=== PATIENT | male | born 1950 | race Two or more races ===

== ENCOUNTER 2021-11-28 11:28 | Inpatient (IN) | payer OTHER ==
[~2021-11-28] VITALS: Ht 157.5 cm; Wt 182.6 kg
[2021-11-28 12:43] LABS: Basophils # (auto) 0 10 ^3/uL (0-0.2); Basophils % (auto) 0.2 % (0.0-2.0); Eosinophils # (auto) 0 10 ^3/uL (0-0.8); Hematocrit 42.5 % (41.0-53.0); Lymphocytes % (auto) 14.1 % (10.0-50.0); Mean Corpuscular Hemoglobin 27.4 pg (28.0-32.0); Mean Corpuscular Volume 82.9 fL (80.0-100.0); Monocytes # (auto) 0.4 10 ^3/uL (0-1.3); Monocytes % (auto) 6.2 % (0.0-12.0); Neutrophils # (auto) 5.5 10 ^3/uL (1.6-8.6); Neutrophils % (auto) 79.5 % (37.0-80.0); Red Blood Cells 5.13 10^6/uL (4.5-5.90); Red Cell Distribution Width 14.3 % (11.8-14.3)
[2021-11-28 13:03] LABS: Albumin 2.9 g/dL (3.4-5.0); Calcium 8.1 mg/dL (8.5-10.1); Potassium 3.9 mmol/L (3.5-5.1)
[2021-11-28 13:09] LABS: BUN/Creatinine Ratio 10.1; Bilirubin, Total 0.4 mg/dL (0.2-1.0); Total Protein 7.4 g/dL (6.4-8.2)
[2021-11-28] MEDS ORDERED: cefTRIAXone 1GM/50ML D5W 50 ML IV ONE (16:15)
[2021-11-28] MEDS ORDERED: AZITHROMYCIN 250 MG TAB PO ONE (16:15)
[2021-11-29] MEDS ORDERED: ONDANSETRON HCL 4 MG/2 ML VIAL IV PRN (04:00)
[2021-11-29] MEDS ORDERED: DEXTROSE (50%) 50ML SYRG IV PRN (04:00)
[2021-11-29] MEDS ORDERED: NITROGLYCERIN 0.4 MG SL TAB SL PRN (04:00)
[2021-11-29] MEDS ORDERED: MORPHINE SULFATE INJECTION 2 MG/ML SYRG IV PRN (04:00)
[2021-11-29] MEDS ORDERED: REMDESIVIR PER PHARMACY 0 ML IV SCH (04:00)
[2021-11-29] MEDS ORDERED: TEMAZEPAM 15 MG CAP PO PRN (04:00)
[2021-11-29] MEDS: DexAMETHasone SOD PHOS 10MG/1ML VIAL INJ IV SCH (04:22)
[2021-11-29 05:14] LABS: Lactic Acid w/Reflex 2.1 mmol/L (0.4-2.0)
[2021-11-29 05:18] LABS: Magnesium 2.1 mg/dL (1.6-2.6)
[2021-11-29 05:27] LABS: CRP High Sensitivity 10.4 mg/dL (< 0.3)
[2021-11-29] MEDS: ACCU-CHEK COMFORT CURVE STRIP VI SCH ×4 (06:36→22:16)
[2021-11-29] MEDS: InsuLIN REG 1unit/0.01ml Soln (100units/ml) SC SCH ×4 (06:42→22:18)
[2021-11-29] MEDS: ENOXAPARIN SOD 40 MG/0.4 ML SYRINGE SC SCH ×2 (10:00→22:18)
[2021-11-29] MEDS: CHOLECALCIFEROL (VITD3) 2,000 UNIT CAP/TAB PO SCH (10:00)
[2021-11-29] MEDS: cefTRIAXone 1GM/50ML D5W 50 ML IV SCH (10:30)
[2021-11-29] MEDS: ASCORBIC ACID 1,000 MG TAB PO SCH (10:30)
[2021-11-29] MEDS: AZITHROMYCIN 500MG/ 250ML 250 ML IV SCH (10:30)
[2021-11-29] MEDS: ZINC SULFATE 220mg CAP or TAB PO SCH (10:30)
[2021-11-29 13:00] VITALS: BP 145/87
[2021-11-29] MEDS ORDERED: REMDESIVIR 200 MG in NS 210ml LOADING DOSE ADULT IV ONE (15:00)
[2021-11-29] MEDS: ALBUTEROL SULF HFA 90MCG INH 200DOSE IN PRN ×2 (15:24→23:22)
[2021-11-29 16:58] VITALS: BP 145/84
[2021-11-29] MEDS ORDERED: ATO40T PO ×2 (17:01→17:27)
[2021-11-29] MEDS ORDERED: METF-929 PO (17:01)
[2021-11-29] MEDS ORDERED: ALBU108A5 IN (17:27)
[2021-11-29] MEDS ORDERED: OMEP20TA PO (17:27)
[2021-11-29] MEDS ORDERED: HYDR25TA4 PO (17:27)
[2021-11-29] MEDS ORDERED: DABI150C5 PO (17:27)
[2021-11-29] MEDS ORDERED: CICL160A2 IN (17:27)
[2021-11-29] MEDS ORDERED: BUDE2SUS3 IN (17:27)
[2021-11-29] MEDS ORDERED: MONT4GRA PO (17:27)
[2021-11-29] MEDS ORDERED: AZEL0.1S (17:27)
[2021-11-29] MEDS ORDERED: LOSA-69 PO (17:27)
[2021-11-29 22:00] VITALS: BP 141/67
[2021-11-30 05:00] VITALS: BP 131/76
[2021-11-30] MEDS: InsuLIN REG 1unit/0.01ml Soln (100units/ml) SC SCH ×3 (06:20→17:09)
[2021-11-30] MEDS: ACCU-CHEK COMFORT CURVE STRIP VI SCH ×4 (06:20→22:20)
[2021-11-30 07:26] LABS: Urine Bacteria NONE SEEN /hpf (None Seen); Urine Blood Negative /uL (Negative); Urine WBC 1 /hpf (0 - 3)
[2021-11-30 09:00] VITALS: BP 140/63
[2021-11-30] MEDS: cefTRIAXone 1GM/50ML D5W 50 ML IV SCH (09:21)
[2021-11-30] MEDS: DexAMETHasone SOD PHOS 10MG/1ML VIAL INJ IV SCH (09:21)
[2021-11-30] MEDS: CHOLECALCIFEROL (VITD3) 2,000 UNIT CAP/TAB PO SCH (09:22)
[2021-11-30] MEDS: AZITHROMYCIN 500MG/ 250ML 250 ML IV SCH (09:22)
[2021-11-30] MEDS: ASCORBIC ACID 1,000 MG TAB PO SCH (09:22)
[2021-11-30] MEDS: ZINC SULFATE 220mg CAP or TAB PO SCH (09:22)
[2021-11-30] MEDS: ENOXAPARIN SOD 40 MG/0.4 ML SYRINGE SC SCH ×2 (09:22→22:20)
[2021-11-30] MEDS: ALBUTEROL SULF HFA 90MCG INH 200DOSE IN PRN ×2 (09:39→22:56)
[2021-11-30 10:22] LABS: Basophils # (auto) 0.1 10 ^3/uL (0-0.2); Basophils % (auto) 1.3 % (0.0-2.0); Eosinophils # (auto) 0 10 ^3/uL (0-0.8); Eosinophils % (auto) 0.4 % (0.0-7.0); Hematocrit 40.8 % (41.0-53.0); Hemoglobin 13.5 g/dL (13.5-17.5); Lymphocytes # (auto) 1.6 10 ^3/uL (0.4-5.4); Lymphocytes % (auto) 21.8 % (10.0-50.0); Mean Corpuscular Hemoglobin 27.3 pg (28.0-32.0); Mean Corpuscular Hgb Conc. 33.2 g/dL (32.0-36.0); Mean Corpuscular Volume 82.4 fL (80.0-100.0); Monocytes # (auto) 0.5 10 ^3/uL (0-1.3); Monocytes % (auto) 7.4 % (0.0-12.0); Neutrophils # (auto) 4.9 10 ^3/uL (1.6-8.6); Neutrophils % (auto) 69.1 % (37.0-80.0); Nucleated Red Blood Cells % 0.4 %; Red Blood Cells 4.95 10^6/uL (4.5-5.90); Red Cell Distribution Width 14.1 % (11.8-14.3); White Blood Cell 7.1 10^3/uL (4.4-10.8)
[2021-11-30 10:47] LABS: Albumin 2.6 g/dL (3.4-5.0); Calcium 8.2 mg/dL (8.5-10.1)
[2021-11-30 10:52] LABS: BUN/Creatinine Ratio 14.3; Bilirubin, Total 0.4 mg/dL (0.2-1.0); Total Protein 7.4 g/dL (6.4-8.2)
[2021-11-30] MEDS ORDERED: DEXTROSE (50%) 50ML SYRG IV PRN (11:15)
[2021-11-30 13:00] VITALS: BP 132/70
[2021-11-30] MEDS: REMDESIVIR 100mg 100 MG in SODIUM CHL 0.9% 230 ML IV SCH (14:57)
[2021-11-30 17:00] VITALS: BP 140/73
[2021-11-30] MEDS ORDERED: FUROSEMIDE 20 MG/2 ML VIAL IV ONE (18:15)
[2021-11-30 22:00] VITALS: BP 157/94
[2021-11-30] MEDS ORDERED: InsuLIN REG 1unit/0.01ml Soln (100units/ml) SC SCH (22:00)
[2021-11-30] MEDS: INSULIN LANTUS (GLARGINE) 1 /0.01ml (100units/ml) SC SCH (22:19)
[2021-12-01 05:00] VITALS: BP 140/87
[2021-12-01] MEDS: InsuLIN REG 1unit/0.01ml Soln (100units/ml) SC SCH ×4 (06:30→23:03)
[2021-12-01] MEDS: ACCU-CHEK COMFORT CURVE STRIP VI SCH ×4 (06:30→23:01)
[2021-12-01] MEDS: ALBUTEROL SULF HFA 90MCG INH 200DOSE IN PRN ×2 (07:44→21:46)
[2021-12-01 08:18] LABS: Albumin 2.7 g/dL (3.4-5.0); Calcium 8.2 mg/dL (8.5-10.1); Potassium 4.1 mmol/L (3.5-5.1)
[2021-12-01 08:24] LABS: BUN/Creatinine Ratio 15.2; Bilirubin, Total 0.4 mg/dL (0.2-1.0)
[2021-12-01 09:00] VITALS: BP 132/94
[2021-12-01] MEDS ORDERED: THROAT LOZENGES(CEPASTAT) MT PRN (09:30)
[2021-12-01] MEDS: DexAMETHasone SOD PHOS 10MG/1ML VIAL INJ IV SCH (10:14)
[2021-12-01] MEDS: cefTRIAXone 1GM/50ML D5W 50 ML IV SCH (10:14)
[2021-12-01] MEDS: FUROSEMIDE 20 MG/2 ML VIAL IV SCH (10:14)
[2021-12-01] MEDS: CHOLECALCIFEROL (VITD3) 2,000 UNIT CAP/TAB PO SCH (10:15)
[2021-12-01] MEDS: AZITHROMYCIN 500MG/ 250ML 250 ML IV SCH (10:15)
[2021-12-01] MEDS: ASCORBIC ACID 1,000 MG TAB PO SCH (10:15)
[2021-12-01] MEDS: ENOXAPARIN SOD 40 MG/0.4 ML SYRINGE SC SCH ×2 (10:15→21:28)
[2021-12-01] MEDS: ZINC SULFATE 220mg CAP or TAB PO SCH (10:15)
[2021-12-01] MEDS: INSULIN LANTUS (GLARGINE) 1 /0.01ml (100units/ml) SC SCH ×2 (10:21→23:02)
[2021-12-01] MEDS: ACETAMINOPHEN 500 MG TAB PO PRN ×2 (10:43→22:15)
[2021-12-01] MEDS ORDERED: DEXTROSE (50%) 50ML SYRG IV PRN (11:00)
[2021-12-01] MEDS ORDERED: InsuLIN REG 1unit/0.01ml Soln (100units/ml) IV ONE (12:45)
[2021-12-01 13:00] VITALS: BP 143/82
[2021-12-01] MEDS: REMDESIVIR 100mg 100 MG in SODIUM CHL 0.9% 230 ML IV SCH (15:43)
[2021-12-01 16:50] VITALS: BP 148/85
[2021-12-01 22:00] VITALS: BP 136/76
[2021-12-02 05:00] VITALS: BP 135/80
[2021-12-02] MEDS: ACCU-CHEK COMFORT CURVE STRIP VI SCH ×4 (05:36→21:59)
[2021-12-02] MEDS: InsuLIN REG 1unit/0.01ml Soln (100units/ml) SC SCH ×4 (05:38→22:07)
[2021-12-02] MEDS: ALBUTEROL SULF HFA 90MCG INH 200DOSE IN PRN ×2 (05:54→21:09)
[2021-12-02 08:33] LABS: Potassium 4.2 mmol/L (3.5-5.1)
[2021-12-02 08:42] LABS: Albumin 2.6 g/dL (3.4-5.0); Bilirubin, Total 0.4 mg/dL (0.2-1.0); Calcium 8.2 mg/dL (8.5-10.1); Total Protein 6.6 g/dL (6.4-8.2)
[2021-12-02 09:00] VITALS: BP 136/68
[2021-12-02] MEDS: cefTRIAXone 1GM/50ML D5W 50 ML IV SCH (09:10)
[2021-12-02] MEDS: DexAMETHasone SOD PHOS 10MG/1ML VIAL INJ IV SCH (09:10)
[2021-12-02] MEDS: ENOXAPARIN SOD 40 MG/0.4 ML SYRINGE SC SCH ×2 (09:11→21:59)
[2021-12-02] MEDS: ZINC SULFATE 220mg CAP or TAB PO SCH (09:12)
[2021-12-02] MEDS: CHOLECALCIFEROL (VITD3) 2,000 UNIT CAP/TAB PO SCH (09:12)
[2021-12-02] MEDS: ASCORBIC ACID 1,000 MG TAB PO SCH (09:13)
[2021-12-02] MEDS: FUROSEMIDE 20 MG/2 ML VIAL IV SCH (09:14)
[2021-12-02] MEDS: INSULIN LANTUS (GLARGINE) 1 /0.01ml (100units/ml) SC SCH ×2 (09:37→22:05)
[2021-12-02 13:00] VITALS: BP 153/73
[2021-12-02] MEDS: AZITHROMYCIN 500MG/ 250ML 250 ML IV SCH (13:22)
[2021-12-02] MEDS: REMDESIVIR 100mg 100 MG in SODIUM CHL 0.9% 230 ML IV SCH (16:08)
[2021-12-02 17:00] VITALS: BP 145/79
[2021-12-02 22:00] VITALS: BP 139/82
[2021-12-03] MEDS: InsuLIN REG 1unit/0.01ml Soln (100units/ml) SC SCH ×5 (01:48→18:01)
[2021-12-03] MEDS: ACCU-CHEK COMFORT CURVE STRIP VI SCH ×6 (01:48→23:30)
[2021-12-03 05:00] VITALS: BP 120/74
[2021-12-03] MEDS: ALBUTEROL SULF HFA 90MCG INH 200DOSE IN PRN ×2 (08:00→21:24)
[2021-12-03 08:13] LABS: Basophils # (auto) 0 10 ^3/uL (0-0.2); Eosinophils # (auto) 0.1 10 ^3/uL (0-0.8); Eosinophils % (auto) 1.3 % (0.0-7.0); Hemoglobin 13.5 g/dL (13.5-17.5); Nucleated Red Blood Cells % 0.1 %
[2021-12-03 08:15] LABS: Lymphocytes # (auto) 1.6 10 ^3/uL (0.4-5.4); Mean Corpuscular Hemoglobin 26.8 pg (28.0-32.0); Mean Corpuscular Hgb Conc. 32.9 g/dL (32.0-36.0); Mean Corpuscular Volume 81.5 fL (80.0-100.0); Monocytes # (auto) 0.7 10 ^3/uL (0-1.3); Monocytes % (auto) 9.8 % (0.0-12.0); Neutrophils # (auto) 5.1 10 ^3/uL (1.6-8.6); Neutrophils % (auto) 67.9 % (37.0-80.0); Red Blood Cells 5.03 10^6/uL (4.5-5.90); Red Cell Distribution Width 13.8 % (11.8-14.3); White Blood Cell 7.5 10^3/uL (4.4-10.8)
[2021-12-03 08:20] LABS: INR 1.12 (0.9-1.15)
[2021-12-03 08:34] VITALS: BP 140/66
[2021-12-03 08:41] LABS: Albumin 2.5 g/dL (3.4-5.0); BUN/Creatinine Ratio 17.3; Bilirubin, Total 0.4 mg/dL (0.2-1.0); CRP High Sensitivity 3.48 mg/dL (< 0.3); Calcium 8.3 mg/dL (8.5-10.1); Magnesium 2.1 mg/dL (1.6-2.6); Total Protein 6.4 g/dL (6.4-8.2)
[2021-12-03] MEDS: DexAMETHasone SOD PHOS 10MG/1ML VIAL INJ IV SCH (09:59)
[2021-12-03] MEDS: cefTRIAXone 1GM/50ML D5W 50 ML IV SCH (09:59)
[2021-12-03] MEDS: ENOXAPARIN SOD 40 MG/0.4 ML SYRINGE SC SCH ×2 (10:00→20:42)
[2021-12-03] MEDS: CHOLECALCIFEROL (VITD3) 2,000 UNIT CAP/TAB PO SCH (10:00)
[2021-12-03] MEDS: FUROSEMIDE 20 MG/2 ML VIAL IV SCH (10:00)
[2021-12-03] MEDS: ZINC SULFATE 220mg CAP or TAB PO SCH (10:01)
[2021-12-03] MEDS: ASCORBIC ACID 1,000 MG TAB PO SCH (10:01)
[2021-12-03] MEDS: INSULIN LANTUS (GLARGINE) 1 /0.01ml (100units/ml) SC SCH (10:08)
[2021-12-03] MEDS: AZITHROMYCIN 500MG/ 250ML 250 ML IV SCH (11:55)
[2021-12-03 12:38] VITALS: BP 131/68
[2021-12-03] MEDS: REMDESIVIR 100mg 100 MG in SODIUM CHL 0.9% 230 ML IV SCH (14:49)
[2021-12-03 16:55] VITALS: BP 161/83
[2021-12-03] MEDS ORDERED: INSULIN LANTUS (GLARGINE) 1 /0.01ml (100units/ml) SC ONE (18:00)
[2021-12-03] MEDS ORDERED: DEXTROSE (50%) 50ML SYRG IV PRN (18:00)
[2021-12-03] MEDS ORDERED: InsuLIN REG 1unit/0.01ml Soln (100units/ml) ONE (20:24)
[2021-12-03] MEDS: InsuLIN R (HUMAN) 100 UNITS in SODIUM CHL 0.9% 99 ML IV SCH ×3 (20:30→23:40)
[2021-12-03 22:04] VITALS: BP 147/68
[2021-12-04] MEDS: ACCU-CHEK COMFORT CURVE STRIP VI SCH ×7 (01:00→21:09)
[2021-12-04] MEDS ORDERED: ACCU-CHEK COMFORT CURVE STRIP VI SCH ×2 (04:30→16:00)
[2021-12-04 04:50] VITALS: BP 146/77
[2021-12-04] MEDS: InsuLIN REG 1unit/0.01ml Soln (100units/ml) SC SCH ×5 (06:25→21:20)
[2021-12-04 07:30] VITALS: BP 139/70
[2021-12-04] MEDS: CHOLECALCIFEROL (VITD3) 2,000 UNIT CAP/TAB PO SCH (07:45)
[2021-12-04] MEDS: ASCORBIC ACID 1,000 MG TAB PO SCH (07:46)
[2021-12-04] MEDS: DexAMETHasone SOD PHOS 10MG/1ML VIAL INJ IV SCH (07:46)
[2021-12-04] MEDS: ZINC SULFATE 220mg CAP or TAB PO SCH (07:46)
[2021-12-04] MEDS: ENOXAPARIN SOD 40 MG/0.4 ML SYRINGE SC SCH ×2 (07:47→21:20)
[2021-12-04] MEDS: cefTRIAXone 1GM/50ML D5W 50 ML IV SCH (07:48)
[2021-12-04 07:58] LABS: Basophils # (auto) 0 10 ^3/uL (0-0.2); Basophils % (auto) 0.1 % (0.0-2.0); Eosinophils # (auto) 0.1 10 ^3/uL (0-0.8); Eosinophils % (auto) 1.4 % (0.0-7.0); Hematocrit 42.1 % (41.0-53.0); Hemoglobin 14.1 g/dL (13.5-17.5); Lymphocytes # (auto) 1.6 10 ^3/uL (0.4-5.4); Lymphocytes % (auto) 18.4 % (10.0-50.0); Mean Corpuscular Hemoglobin 27.4 pg (28.0-32.0); Mean Corpuscular Hgb Conc. 33.5 g/dL (32.0-36.0); Mean Corpuscular Volume 81.9 fL (80.0-100.0); Monocytes # (auto) 0.8 10 ^3/uL (0-1.3); Neutrophils # (auto) 6.3 10 ^3/uL (1.6-8.6); Neutrophils % (auto) 71.1 % (37.0-80.0); Red Blood Cells 5.13 10^6/uL (4.5-5.90); Red Cell Distribution Width 13.9 % (11.8-14.3); White Blood Cell 8.9 10^3/uL (4.4-10.8)
[2021-12-04 08:04] LABS: Potassium 3.9 mmol/L (3.5-5.1)
[2021-12-04] MEDS: FUROSEMIDE 20 MG/2 ML VIAL IV SCH (08:07)
[2021-12-04 08:17] LABS: Albumin 2.6 g/dL (3.4-5.0); BUN/Creatinine Ratio 17.7; Bilirubin, Total 0.4 mg/dL (0.2-1.0); Calcium 8.2 mg/dL (8.5-10.1); Total Protein 6.9 g/dL (6.4-8.2)
[2021-12-04 09:00] VITALS: BP 139/70
[2021-12-04] MEDS: ALBUTEROL SULF HFA 90MCG INH 200DOSE IN PRN ×2 (09:40→23:21)
[2021-12-04] MEDS ORDERED: INSULIN LANTUS (GLARGINE) 1 /0.01ml (100units/ml) SC SCH (10:00)
[2021-12-04 13:00] VITALS: BP 140/73
[2021-12-04] MEDS ORDERED: DEXTROSE (50%) 50ML SYRG IV PRN (15:45)
[2021-12-04] MEDS ORDERED: InsuLIN REG 1unit/0.01ml Soln (100units/ml) SC SCH (16:00)
[2021-12-04 17:00] VITALS: BP 154/71
[2021-12-04] MEDS: INSULIN LANTUS (GLARGINE) 1 /0.01ml (100units/ml) SC SCH (21:20)
[2021-12-04 22:00] VITALS: BP 142/69
[2021-12-05] VITALS (7 sets, daily range): BP systolic 104–137; BP diastolic 57–81
[2021-12-05] MEDS: ACCU-CHEK COMFORT CURVE STRIP VI SCH ×6 (01:14→20:58)
[2021-12-05] MEDS: InsuLIN REG 1unit/0.01ml Soln (100units/ml) SC SCH ×6 (01:14→21:01)
[2021-12-05 07:38] LABS: Potassium 4.1 mmol/L (3.5-5.1)
[2021-12-05 07:44] LABS: BUN/Creatinine Ratio 21.7; Calcium 8.4 mg/dL (8.5-10.1)
[2021-12-05] MEDS: CHOLECALCIFEROL (VITD3) 2,000 UNIT CAP/TAB PO SCH (09:24)
[2021-12-05] MEDS: ASCORBIC ACID 1,000 MG TAB PO SCH (09:24)
[2021-12-05] MEDS: cefTRIAXone 1GM/50ML D5W 50 ML IV SCH (09:24)
[2021-12-05] MEDS: ZINC SULFATE 220mg CAP or TAB PO SCH (09:24)
[2021-12-05] MEDS: ENOXAPARIN SOD 40 MG/0.4 ML SYRINGE SC SCH ×2 (09:25→22:07)
[2021-12-05] MEDS: INSULIN LANTUS (GLARGINE) 1 /0.01ml (100units/ml) SC SCH ×2 (09:36→22:13)
[2021-12-05] MEDS: FUROSEMIDE 20 MG/2 ML VIAL IV SCH (10:02)
[2021-12-05] MEDS: predniSONE 20 MG TAB PO SCH (12:00)
[2021-12-05] MEDS ORDERED: ZINC220T6 PO (12:22)
[2021-12-05] MEDS ORDERED: ASCO10003 PO (12:22)
[2021-12-05] MEDS ORDERED: DEX4T PO (12:22)
[2021-12-05] MEDS ORDERED: INSLANTI SC (12:22)
[2021-12-05] MEDS ORDERED: CHOL500023 PO (12:22)
[2021-12-05] MEDS ORDERED: ALBUAER3 IN (12:22)
[2021-12-05] MEDS ORDERED: DOXY-286 PO (12:22)
[2021-12-05] MEDS: ALBUTEROL SULF HFA 90MCG INH 200DOSE IN PRN ×2 (15:38→20:07)
[2021-12-06] MEDS: ACCU-CHEK COMFORT CURVE STRIP VI SCH ×4 (01:06→12:44)
[2021-12-06] MEDS: InsuLIN REG 1unit/0.01ml Soln (100units/ml) SC SCH ×4 (01:07→12:44)
[2021-12-06 05:00] VITALS: BP 134/87
[2021-12-06] MEDS: ALBUTEROL SULF HFA 90MCG INH 200DOSE IN PRN (08:42)
[2021-12-06] MEDS: ASCORBIC ACID 1,000 MG TAB PO SCH (08:50)
[2021-12-06] MEDS: ZINC SULFATE 220mg CAP or TAB PO SCH (08:50)
[2021-12-06] MEDS: predniSONE 20 MG TAB PO SCH (08:50)
[2021-12-06] MEDS: cefTRIAXone 1GM/50ML D5W 50 ML IV SCH (08:50)
[2021-12-06] MEDS: INSULIN LANTUS (GLARGINE) 1 /0.01ml (100units/ml) SC SCH (08:50)
[2021-12-06] MEDS: CHOLECALCIFEROL (VITD3) 2,000 UNIT CAP/TAB PO SCH (08:50)
[2021-12-06] MEDS: ENOXAPARIN SOD 40 MG/0.4 ML SYRINGE SC SCH (08:50)
[2021-12-06 08:55] VITALS: BP 132/63
[2021-12-06 09:11] LABS: Calcium 8.5 mg/dL (8.5-10.1)
[2021-12-06 09:13] LABS: BUN/Creatinine Ratio 15.3
[2021-12-06 11:59] VITALS: BP 121/78
[2021-12-06 13:00] VITALS: BP 162/76
[2021-12-06] MEDS: FUROSEMIDE 20 MG/2 ML VIAL IV SCH (13:50)
== END 2021-12-06 14:30 | disposition home health service (06) | DRG 871 ==
LOC: ER 11:28 → TELE 11-29 03:49 → TELE-EAST 11-29 09:26
PROVIDERS: ADMIT Nurse Practitioner; ATTEND Internal Medicine
PROC: XW033E5 Introduction of Remdesivir Anti-infective into Peripheral Vein, Percutaneous Approach, New Technology Group 5 (ICD-10-PCS; principal; 2021-11-29)
DX: A41.89 Other specified sepsis (principal); U07.1 COVID-19; J96.01 Acute respiratory failure with hypoxia; J12.82 Pneumonia due to coronavirus disease 2019; J45.901 Unspecified asthma with (acute) exacerbation; Z68.45 Body mass index [BMI] 70 or greater, adult; R65.20 Severe sepsis without septic shock; E66.01 Morbid (severe) obesity due to excess calories; I10 Essential (primary) hypertension; K59.00 Constipation, unspecified; Z86.711 Personal history of pulmonary embolism; E11.9 Type 2 diabetes mellitus without complications; Z23 Encounter for immunization
CPT/HCPCS: 36415; 36600; 71045; 80048; 80053; 81001; 82306; 82728; 82805; 82962; 83036; 83605; 83615; 83735; 84443; 84484; 85025; 85379; 85610; 86141; 87426; 93005; 94640; 96365; 96372; G0378; J0696; J1100; J1815

== ENCOUNTER 2022-07-04 10:54 | Emergency (ER) | payer OTHER ==
[~2022-07-04] VITALS: Ht 188 cm; Wt 184.0 kg
[~2022-07-04 10:54] MED LIST: ALBU108A5 IN; ALBUAER3 IN; ASCO10003 PO; ATO40T PO; AZEL0.1S; BUDE2SUS3 IN; CHOL500023 PO; CICL160A2 IN; DABI150C5 PO; DEX4T PO; DOXY-286 PO; HYDR25TA4 PO; INSLANTI SC; LOSA-69 PO; METF-929 PO; MONT4GRA PO; OMEP20TA PO; ZINC220T6 PO
[2022-07-04] MEDS ORDERED: ACETAMINOPHEN 500 MG TAB PO ONE (13:30)
[2022-07-04] MEDS ORDERED: SODIUM CHLORIDE 0.9% 1,000 ML IV ONE (13:30)
[2022-07-04 14:59] LABS: Basophils # (auto) 0 10 ^3/uL (0-0.2); Basophils % (auto) 0.4 % (0.0-2.0); Eosinophils # (auto) 0 10 ^3/uL (0-0.8); Eosinophils % (auto) 0.3 % (0.0-7.0); Hematocrit 40.6 % (41.0-53.0); Hemoglobin 12.8 g/dL (13.5-17.5); Lymphocytes # (auto) 1.1 10 ^3/uL (0.4-5.4); Lymphocytes % (auto) 12.8 % (10.0-50.0); Mean Corpuscular Hemoglobin 26.9 pg (28.0-32.0); Mean Corpuscular Hgb Conc. 31.4 g/dL (32.0-36.0); Mean Corpuscular Volume 85.6 fL (80.0-100.0); Monocytes # (auto) 0.4 10 ^3/uL (0-1.3); Monocytes % (auto) 4.7 % (0.0-12.0); Neutrophils % (auto) 81.8 % (37.0-80.0); Nucleated Red Blood Cells % 0.1 %; Red Blood Cells 4.74 10^6/uL (4.5-5.90); Red Cell Distribution Width 14.3 % (11.8-14.3); White Blood Cell 8.6 10^3/uL (4.4-10.8)
[2022-07-04 15:01] LABS: INR 1.06 (0.9-1.15); Partial Thromboplastin Time 20.8 sec (24.6-33.4)
[2022-07-04 15:09] LABS: Calcium 8.7 mg/dL (8.5-10.1); Potassium 4.1 mmol/L (3.5-5.1)
[2022-07-04 15:12] LABS: BUN/Creatinine Ratio 13.6; Bilirubin, Total 0.6 mg/dL (0.2-1.0); Total Protein 7.4 g/dL (6.4-8.2)
[2022-07-04 17:15] LABS: Urine Bacteria NONE SEEN /hpf (None Seen); Urine Blood Negative /uL (Negative); Urine WBC 2 /hpf (0 - 3)
[2022-07-04] MEDS ORDERED: cefTRIAXone 1GM/50ML D5W 50 ML IV ONE (17:30)
[2022-07-04] MEDS ORDERED: AZITHROMYCIN 500MG/ 250ML 250 ML IV ONE (17:30)
[2022-07-04] MEDS ORDERED: FUROSEMIDE 40 MG/4 ML VIAL IV ONE (17:30)
[2022-07-04 20:47] VITALS: BP 118/85
== END 2022-07-04 21:00 | disposition short-term general hospital (02) ==
LOC: ER 10:54 → EDBD 10:54 → ER 21:00
DX: J18.9 Pneumonia, unspecified organism (principal); E11.65 Type 2 diabetes mellitus with hyperglycemia; E66.01 Morbid (severe) obesity due to excess calories; L02.412 Cutaneous abscess of left axilla; J44.9 Chronic obstructive pulmonary disease, unspecified; E78.5 Hyperlipidemia, unspecified; I10 Essential (primary) hypertension; Z68.43 Body mass index [BMI] 50.0-59.9, adult; Z20.822 Contact with and (suspected) exposure to COVID-19
CPT/HCPCS: 36415; 71045; 80053; 81001; 82962; 83605; 83735; 83880; 84484; 85025; 85610; 85730; 87040; 87426; 93005; 96361; 96365; 96368; 96375; 99285; J0456; J0696; J1940; J7030

== ENCOUNTER 2023-01-31 01:19 | Emergency (ER) | payer OTHER ==
[~2023-01-31] VITALS: Ht 188 cm; Wt 170.0 kg
[2023-01-31] MEDS ORDERED: AZITHROMYCIN 500MG/ 250ML 250 ML IV ONE (02:15)
[2023-01-31] MEDS ORDERED: cefTRIAXone 1GM/50ML D5W 50 ML IV ONE (02:15)
[2023-01-31] MEDS ORDERED: IPRATROPIUM BROM 0.5 MG/2.5ML INH SOL NEB ONE (02:15)
[2023-01-31] MEDS ORDERED: ALBUTEROL SULF 2.5 MG/0.5ML(0.5%) NEB SOLN NEB ONE (02:15)
[2023-01-31] MEDS ORDERED: methylPREDNISolone SOD SUCC 125 MG/2 ML VL IV ONE (02:15)
[2023-01-31 02:23] LABS: Albumin 2.9 g/dL (3.4-5.0); BUN/Creatinine Ratio 8.4; Calcium 8.6 mg/dL (8.5-10.1); Magnesium 1.5 mg/dL (1.6-2.6); Potassium 3.5 mmol/L (3.5-5.1)
[2023-01-31 02:26] LABS: Bilirubin, Total 0.3 mg/dL (0.2-1.0); Total Protein 7.3 g/dL (6.4-8.2)
[2023-01-31 02:28] LABS: Lactic Acid w/Reflex 4.1 mmol/L (0.4-2.0)
[2023-01-31 02:38] LABS: Basophils # (auto) 0 10 ^3/uL (0-0.2); Basophils % (auto) 0.4 % (0.0-2.0); Eosinophils # (auto) 0 10 ^3/uL (0-0.8); Eosinophils % (auto) 0.5 % (0.0-7.0); Hematocrit 39.5 % (41.0-53.0); Hemoglobin 13.1 g/dL (13.5-17.5); Lymphocytes # (auto) 1.5 10 ^3/uL (0.4-5.4); Lymphocytes % (auto) 13.7 % (10.0-50.0); Mean Corpuscular Hemoglobin 27.7 pg (28.0-32.0); Mean Corpuscular Hgb Conc. 33.2 g/dL (32.0-36.0); Mean Corpuscular Volume 83.4 fL (80.0-100.0); Monocytes # (auto) 0.7 10 ^3/uL (0-1.3); Monocytes % (auto) 6.7 % (0.0-12.0); Neutrophils # (auto) 8.4 10 ^3/uL (1.6-8.6); Neutrophils % (auto) 78.7 % (37.0-80.0); Nucleated Red Blood Cells % 1.2 %; Red Blood Cells 4.74 10^6/uL (4.5-5.90); Red Cell Distribution Width 14.4 % (11.8-14.3); White Blood Cell 10.6 10^3/uL (4.4-10.8)
[2023-01-31 03:01] LABS: INR 1.07 (0.9-1.15); Partial Thromboplastin Time 37.2 sec (24.6-33.4)
[2023-01-31 08:26] LABS: Urine Bacteria FEW /hpf (None Seen); Urine Blood Negative /uL (Negative); Urine Specific Gravity 1.014 (1.001-1.035); Urine WBC 6 /hpf (0 - 3)
[2023-01-31 09:12] LABS: Lactic Acid w/Reflex 2.1 mmol/L (0.4-2.0)
[2023-01-31 11:34] VITALS: BP 128/69
== END 2023-01-31 12:16 | disposition short-term general hospital (02) ==
LOC: EDBD 01:19 → ER 01:19
DX: J18.9 Pneumonia, unspecified organism (principal); J44.1 Chronic obstructive pulmonary disease with (acute) exacerbation; R07.89 Other chest pain; I10 Essential (primary) hypertension; E11.9 Type 2 diabetes mellitus without complications; E78.5 Hyperlipidemia, unspecified; Z79.899 Other long term (current) drug therapy; Z79.4 Long term (current) use of insulin; Z20.822 Contact with and (suspected) exposure to COVID-19
CPT/HCPCS: 36415; 71045; 80053; 81001; 83605; 83735; 83880; 84484; 85025; 85610; 85730; 87426; 93005; 94640; 96365; 96366; 96368; 96375; 99285; J0456; J0696; J2930; J7644

== ENCOUNTER 2025-09-07 17:12 | Inpatient (IN) | payer OTHER ==
[~2025-09-07] VITALS: Ht 188 cm; Wt 173.2 kg
[~2025-09-07 17:12] MED LIST changes: -ATO40T PO; +ATOR-507 PO; +LOSA-534 PO; -LOSA-69 PO; -MONT4GRA PO; +MONT4GRA7 PO
[2025-09-07 17:30] VITALS: PULSE 120; RESP 18; O2SAT 100
--- NOTE | 2025-09-07 17:59 | ED.PDOC ---
SOB-HPI HPI Comments HPI: 75-year-old male presents to the ED via EMS with a chief complaint of shortness of breath onset 2 days. Per EMS, initial call was due to patient experiencing shortness of breath as well as fatigue. Patient states he has been experiencing shortness of breath as well as fatigue for the past 2 days, worsens with exertion, worsened today and called 911. Patient is on home O2 4L. Was given a breathing treatment in route to ED, shortness of breath had slight improvement. Denies fever, chills, chest pain, dizziness, headache, nausea, vomiting, diarrhea. No other symptoms or modifying factors present at this time. Later in the course patient stated that his right lower quadrant abdominal pain has been going on for at least one month but progressively getting worse lately. His initial chief complaint is not abdominal pain but respiratory symptoms. Initial Vitals BP: 128/76 HR: 110 RR: 20 O2: 94% Temp: 98.6 F Past Medical History: Asthma, COPD, HTN, DM insulin dependent a 2nd, abdominal aortic aneurysm pulmonary embolus, Past Surgical History: Denies Social History: Denies ETOH, smoking, and drug use. Medications: Albuterol , Pradaxa Allergies: NKDA HPI: Poor Historian. REVIEW OF SYSTEMS: CONSTITUTIONAL: Denies acute: fever, diaphoresis, chills, HEAD: Denies acute: headache, photophobia Eyes: Denies acute: Double vision, vision loss, eye pain, eye discharge. EARS: Denies acute: tinnitus, hearing loss, ear discharge, ear pain, THROAT: Denies acute: sore throat, swelling, difficulty swallowing , pain with swallowing, change in voice. NECK: Denies acute: neck pain, neck swelling, stiff neck. HEART: Denies acute : chest pain, palpitations, LUNGS: Denies acute: wheezing, cough, hemoptysis ABDOMEN: Denies acute: abdominal pain, Nausea, Vomiting, diarrhea, melena , hematemesis, hematochezia SKIN: Denies acute: rash, redness, lesions, itchiness. EXTREMITIES: Denies acute: calf pain, numbness, tingling, weakness, denies pain in extremity. Denies acute: Low back pain. Neuro: Denies acute: focal neurological deficit, motor or sensory focal neurological deficit, tremors, seizure like activity, confusion, dizziness, change in mental status, loss of bowel or bladder function, cauda equina like symptoms. : Denies acute: dysuria, hematuria, flank pain, increase in urinary frequency. PSYCH: Denies acute: hallucination, suicidal ideation, homicidal ideation. PHYSICAL EXAM: General: ----mild----acute distress, awake and alert. Head: normocephalic, atraumatic. Neck: supple, trachea is midline, no swelling. Throat: Normal phonation. Eyes:, no erythema, no purulent discharge, no proptosis, no icterus. Heart: regular rate, regular rhythm, no significant murmur appreciated. Lungs: no apparent respiratory distress, Able to speak in full sentences. No wheezing, no rhonchi, no crackles. No stridors Clear to auscultation bilaterally. Abdomen: Right lower quadrant tender to palpation, non distended, soft, no guarding, no rebound, + bowel sounds. Obese. Palpable mass like on the right lower quadrant area with noted chronic bruising from insulin injection in the area per patient report. Neuro: Awake, Alert, oriented to name, self, situation, follows commands GCS=15. Speech is normal. Skin: no petechia, no purpura, no cyanosis, non-pale, not jaundice. Lower extremities: --2/4 bilateral - Pitting edema no deformity, no focal swelling, no calf TTP. Makes eye contact. moves all four extremities. Face: no apparent facial droop. ED COURSE: DISCLAIMER: This medical document was created using an electronic medical record system with voice recognition software and computerized dictation system. Although this document has been carefully reviewed, there might still be some phonetic and typographical errors. Occasional wrong-word or "sound-alike" substitutions may have occurred due to the inherent limitations of voice recognition software. These areas are purely typographical due to imperfections of the software programs and do not reflect any compromise in the patient's medical care. Please read the chart carefully and recognize, using context, where these substitutions have occurred. Chief Complaint: Shortness of Breath Time Seen by MD: 17:40 Reviewed notes: Medications, Allergies Information Source: Patient, Emergency Med Personnel Mode of Arrival: EMS Severity: Moderate Timing: Days Duration: Since onset Context: At Rest PE Risk Factors: None History of: Asthma, COPD Prehospital treatment: Breathing Tx Past Medical History PAST MEDICAL HISTORY: Asthma, COPD, DM, HTN Surgical History: Denies all surgeries Family History Family History: Reviewed,noncontributory to illness, No family hx of Cancer, No family hx of DM, No family hx of Heart leonor, No family hx of HTN, No family hx ofKidney leonor, No family hx of Liver leonor, No family hx of Lung leonor, No family hx of Stroke Social History Smoker: Non-Smoker Alcohol: Denies ETOH Use Drugs: Denies Drug Use Lives In: Home EKG EKG : Pulse Rate (adult): 121 Cardiac Rhythm: ST Was a procedure done? Was a procedure done?: No Differential Dx Differential Diagnosis: Other (DDx include ACS, unstable angina, anxiety, PE, pneumothroax, neoplasm, cardiac ischemia, COPD, asthma, CHF, pleural effusion, tobacco abuse, pneumonia, hypoxia, hypercapnia, anemia., infection/sepsis., pulmonary edema. Asthma, Cardiac tamponade, infection.) X-Ray, Labs, Meds, VS Vital Signs Date Time Temp Pulse Resp B/P (MAP) Pulse Ox O2 Delivery O2 Flow Rate FiO2 09/07/25 18:15 128/59 09/07/25 17:59 121 09/07/25 17:30 120 18 100 Nasal Cannula* 4 36 09/07/25 17:30 98.5 121 19 135/59 (84) 100 98.5 09/07/25 17:19 121 09/07/25 17:18 98.6 110 20 128/76 94 98.6 Lab Test 09/07/25 22:08 09/07/25 21:09 09/07/25 20:52 09/07/25 19:49 Range/Units Troponin I High Sensitivity 4 3 L </=54 ng/L Lactic Acid Level 4.1 *H 0.4-2.0 mmol/L Urine Color Yellow Yellow Urine Clarity Clear Clear Urine pH 6.0 5.0-9.0 Urine Specific [place] 1.015 1.001-1.035 Urine Protein Trace H Negative Urine Ketones Negative Negative Urine Blood Negative Negative /uL Urine Nitrite Negative Negative Urine Bilirubin Negative Negative Urine Urobilinogen 2 H Negative mg/dL Urine Leukocyte Esterase Negative Negative /uL Urine RBC 1 0 - 3 /hpf Urine Microscopic WBC 4 H 0-3 /HPF Urine Squamous Epithelial Cells Few <5 /hpf Urine Bacteria None seen None Seen /hpf Urine Glucose Normal Normal mg/dL Test 09/07/25 18:57 Range/Units White Blood Count 25.7 H 4.4-10.8 10^3/uL Red Blood Count 4.72 4.5-5.90 10^6/uL Hemoglobin 8.5 L 13.5-17.5 g/dL Hematocrit 29.8 L 41.0-53.0 % Mean Corpuscular Volume 63.0 L 80.0-100.0 fL Mean Corpuscular Hemoglobin 18.0 L 28.0-32.0 pg Mean Corpuscular Hemoglobin Concent 28.6 L 32.0-36.0 g/dL Red Cell Distribution Width 20.9 H 11.8-14.3 % Platelet Count 508 H 140-450 10^3/uL Mean Platelet Volume 6.6 L 6.9-10.8 fL Neutrophils (%) (Auto) 37.0-80.0 % Lymphocytes (%) (Auto) 10.0-50.0 % Monocytes (%) (Auto) 0.0-12.0 % Basophils (%) (Auto) 0.0-2.0 % Neutrophils # (Auto) 1.6-8.6 10 ^3/uL Lymphocytes # (Auto) 0.4-5.4 10 ^3/uL Monocytes # (Auto) 0-1.3 10 ^3/uL Differential Total Cells Counted 100.0 100 Neutrophils % (Manual) 87 H 37.0-80.0 Band Neutrophils % (Manual) 6 Lymphocytes % (Manual) 4 L 10.0-50.0 Monocytes % (Manual) 3 0-12 Eosinophils % (Manual) 0 0-7 Basophils % (Manual) 0 0.0-2.0 Metamyelocytes % (manual) 0 Myelocytes % (Manual) 0 Promyelocytes % (Manual) 0 Blast Cells % (Manual) 0 Reactive Lymphocytes 0 Platelet Estimate Increased Hypochromasia (manual) Marked Anisocytosis (manual) Slight Microcytosis Marked Prothrombin Time 13.0 H 9.3-11.8 sec Prothrombin Time INR 1.25 H 0.9-1.15 Activated Partial Thromboplast Time 33.0 24.5-34.5 SEC Sodium Level 139 136-145 mmol/L Potassium Level 3.6 3.5-5.1 mmol/L Chloride Level 104 98-107 mmol/L Carbon Dioxide Level 20 20-31 mmol/L Anion Gap 15 5-15 Blood Urea Nitrogen 12 9-23 mg/dL Creatinine 0.91 0.700-1.30 mg/dL Glomerular Filtration Rate Calc 88 >90 mL/min BUN/Creatinine Ratio 13.2 10.0-20.0 Serum Glucose 219 H 74-106 mg/dL Lactic Acid Level 4.8 *H 0.4-2.0 mmol/L Calcium Level 8.5 L 8.7-10.4 mg/dL Total Bilirubin 0.5 0.2-1.0 mg/dL Aspartate Amino Transferase (AST) 21 13-40 U/L Alanine Aminotransferase (ALT) 22 7-40 U/L Alkaline Phosphatase 131 H 46-116 U/L Troponin I High Sensitivity 6 </=54 ng/L B-Type Natriuretic Peptide 27.80 0-100 pg/mL Total Protein 6.6 5.7-8.2 g/dL Albumin 3.3 3.2-4.8 g/dL Current Medications Medications (Trade) Dose Ordered Sig/Nivia Route Start Time Stop Time Status Last Admin Furosemide (Lasix Injection) 40 mg ONCE ONCE IV 09/07/25 18:15 09/07/25 18:16 DC 09/07/25 18:15 Piperacillin Sod/ Tazobactam Sod 100 ml @ 100 mls/hr ONCE ONCE IV 09/07/25 19:15 09/07/25 20:40 DC 09/07/25 19:15 Vancomycin HCl 250 ml @ 250 mls/hr STAT STAT IV 09/07/25 19:13 09/07/25 20:40 DC 09/07/25 19:13 Time of 1ST Reevaluation: 18:10 Reevaluation 1ST: Unchanged Time of 2ND Reevaluation: 21:50 (The case was discussed with the [facility] admitting team (HPI, physical exam, labs and diagnostic tests that were availabl e at the time of disposition, ED course, treatment plan) on the phone. They authorized us to admit the patient to our facility because patient is unstable based on CT scan findings. Authorization number is [id number] Barreto states that the patient has history of diabetes, hypertension, hyperlipidemia, AAA, asthma COPD pulmonary embolus however they denied history of reported CHF. They can not find that the patient is on any diuretics. Based on these findings I started fluids on this patient. BNP is normal.) Time of 3RD Reevaluation: 22:07 (The case was discussed with the general surgery on-call team (HPI, physical exam, labs and diagnostic tests that were available at the time of disposition, ED course, treatment plan) on the phone. They agreed to follow the patient in consult. They agree with our management. I specifically informed that Of the CT scan findings of possible necrotizing fasciitis as well and the lab values. Dr. brizuela. He recommended admission to ICU) Patient Education/Counseling: Diagnosis, Treatment Family Education/Counseling: No Family Present Comments MDM: patient presented with the above HPI.---respiratory complaints/shortness of breath---workup was initiated. patient was found with the above mentioned diagnosis. the following medications were ordered: please refer to order lists of meds and tests obtained by myself Dr. Durham. Patient ED course and VS have been stabilized. Patient has been reassessed in the ED and remained in a stable condition. Pertinent incidental findings were discussed with the patient and/or family. Patient/family voices understanding and is agreeable with plan. Patient has been observed in the ED adequate length of time to insure improvement/stability. Escalation of care considered: Consideration of escalation to observation or admission Patient was found with the above CT scan findings. [place] was consulted who authorized us to keep the patient in our facility given the findings. General surgery was consulted as mentioned above. Sepsis protocol initiated. Fluid resuscitation given. Patient was ADMITTED to the medicine team for further evaluation and treatment of their presentation. As far as the CT scan findings:, this could be a hematoma since the patient is on Pradaxa or potential necrotizing fasciitis is in the presence of gas in a high-risk patient who daily injects that site for insulin injection on his abdominal wall. This could be abscess. This could be cellulitis. All the reports of any imaging studies that were ordered by myself were reviewed by myself. [address] [address] Ph: [phone] DIAGNOSTIC IMAGING Diagnostic Imaging Report : [id number] Signed PATIENT: GAIL HATHAWAY ACCT: [id number] UNIT: [id number] : 1950 LOC: ER ROOM / BED: / AGE / SEX: 75 / M ADM STATUS: REG ER SERVICE 11 ORDERING PHYSICIAN: CAROLINA DURHAM DO PROCEDURE(s): ABPL - CT AB PEL WO CON-NO ORAL OR IV REASON: ABD PAIN ORDER NUMBER(s): [id number], ACCESSION NUMBER(s): [id number] CLINICAL HISTORY: ABD PAIN TECHNIQUE: CT of the abdomen and pelvis was performed without IV contrast. This exam was performed according to our departmental dose optimization program. Up-to-date CT equipment and radiation dose reduction techniques are utilized as appropriate. CTDI 28 DLP 1817 COMPARISON: The spleen, adrenal glands, gallbladder, FINDINGS: Abdomen/Pelvis: The spleen, adrenal glands, left kidney, bladder, and prostate gland are grossly unremarkable. There are a few tiny gallstones. There is egul-pm-vefrpgjo pancreatic parenchymal atrophy. Hypodense and hyperdense right renal lesions are incompletely characterized due to lack of IV contrast. The abdominal aorta is normal in course and caliber. There are mild atherosclerotic calcifications. There is no free intraperitoneal air or fluid. There is no enlarged abdominal pelvic lymph node. There is no bowel wall thickening or dilatation. The appendix is normal. There is extensive soft tissue air which appears to be organizing, measuring up to 15.8 x 5.2 cm trans axially within the lower anterior abdominal wall subcutaneous fat, much greater on the right. This air extends to the right anterior and anterolateral abdominal wall musculature, where there is a 7.7 x 6.4 x 11.8 cm fluid collection. This collection is just superficial to the abdominal wall. The adjacent musculature demonstrates moderate soft tissue thickening. There is extensive focal soft tissue thickening at the cecum. The appendix appears normal. There is colonic diverticulosis. Other: The imaged lower thorax demonstrates mild nonspecific scarring at both lung bases. There are coronary artery calcifications. There is bilateral gynecomastia. No acute osseous abnormality is evident. Impression: Extensive collection of air within the anterior abdominal wall subcutaneous fat, greatest at the right lower abdomen, measuring up to 15.8 x 5.2 cm trans axia lly. Appearance raises the possibility of necrotizing fasciitis. 7.7 x 6.4 x 11.8 cm fluid collection at the right lower abdominal subcutaneous fat with involvement of the right lateral abdominal wall and cecum. Differential includes an infectious process including abscess formation and/or hematoma. An underlying lesion is not excluded. Consider repeat study with contrast. Tiny gallstone. Ntae-jy-bznowner pancreatic parenchymal atrophy. ATED BY: ULISES WILSON MD DICTATED DATE/TIME: 09/07/251915 SIGNED BY: ULISES WILSON MD SIGNED DATE/TIME: 09/07/251915 CC: [place] [id number] Ph: [phone] DIAGNOSTIC IMAGING Diagnostic Imaging Report : [id number] Signed PATIENT: GAIL HATHAWAY ACCT: [id number] UNIT: [id number] : 1950 LOC: ER ROOM / BED: / AGE / SEX: 75 / M ADM STATUS: REG ER SERVICE 11 ORDERING PHYSICIAN: CAROLINA DURHAM DO PROCEDURE(s): CXRP - CHEST PORTABLE REASON: SOB ORDER NUMBER(s): [id number], ACCESSION NUMBER(s): [id number] CHEST RADIOGRAPH Indication: SOB Technique: Single frontal view of the chest was obtained Comparison: XY CHEST PORTABLE on DOS: 01/31/23, CHEST PORTABLE on DOS: 07/04/22, CHEST PORTABLE on DOS: 12/03/21 FINDINGS: Lines and Tubes: None Lungs: Bilateral perihilar bronchovascular prominence. Pleura: No effusion. No pneumothorax. Cardiomediastinal contours: Cardiac size upper limits of normal Bones: No acute osseous abnormality. Mild dextroscoliosis of the thoracic spine may be positional there are no prior studies for comparison IMPRESSION: 1. Findings may represent congestive failure or chronic disease. ATED BY: PARIS CHERY Jr., DO DICTATED DATE/TIME: 09/07/251900 SIGNED BY: PARIS CHERY Jr., DO SIGNED DATE/TIME: 09/07/251900 CC: Departure 1 Departure Time of Disposition: 21:56 Impression: Primary Impression: Sepsis Additional Impressions: COPD exacerbation Leukocytosis Elevated lactic acid level Abnormal finding on CT scan Abdominal wall abscess Necrotizing fasciitis Disposition: 09 ADMITTED INPATIENT Admit to: ICU Condition: Critical Discharged With: Self Critical Care Note Critical Care Time?: Yes (90 min-critical care time only) SEPSIS Sepsis Screen Date sepsis recognized/suspect: Sep 07, 2025 Time Sepsis recognized/suspect: 1729 Recent Procedure: No On Antibiotic Therapy: Yes Respiratory Rate >20: No Heart Rate >90: Yes Temp<36 C (96.8 F) or >38.3 C: No SBP <90 or MAP <65 mmHG: No New Acute Mental Status Change: No Is the patient on CPAP, BIPAP,: No Physician Orders Pharmacy Informatics Manager (09/07/25 ) Chest Portable (09/07/25 18:12) Ct Ab Pel Wo Con-No Oral Or Iv (09/07/25 18:12) Accucheck (09/07/25 19:13) Blood Culture (09/07/25 19:13) Notify Md If Map <65 Or Bp<90 (09/07/25 19:13) If Map<65 Start Vasopressor (09/07/25 19:13) Sepsis Fluid Exclusion: (09/07/25 19:13) Sepsis Reassesment After Fluid (09/07/25 20:13) * Surgical Consult (09/07/25 ) Vital Signs Date Time Temp Pulse Resp B/P (MAP) Pulse Ox O2 Delivery O2 Flow Rate FiO2 09/07/25 18:15 128/59 09/07/25 17:59 121 09/07/25 17:30 120 18 100 Nasal Cannula* 4 36 09/07/25 17:30 98.5 121 19 135/59 (84) 100 98.5 09/07/25 17:19 121 09/07/25 17:18 98.6 110 20 128/76 94 98.6 Laboratory Tests Test 09/07/25 18:57 09/07/25 21:09 Lactic Acid Level 4.8 mmol/L (0.4-2.0) *H 4.1 mmol/L (0.4-2.0) *H White Blood Count 25.7 10^3/uL (4.4-10.8) H Medications Medications Dose Ordered Sig/Nivia Route Start Time Stop Time Status Last Admin Dose Admin Furosemide 40 mg ONCE ONCE IV 09/07/25 18:15 09/07/25 18:16 DC 09/07/25 18:15 Piperacillin Sod/ Tazobactam Sod 100 ml @ 100 mls/hr ONCE ONCE IV 09/07/25 19:15 09/07/25 20:40 DC 09/07/25 19:15 Vancomycin HCl 250 ml @ 250 mls/hr STAT STAT IV 09/07/25 19:13 09/07/25 20:40 DC 09/07/25 19:13 I personally scribed for CAROLINA DURHAM DO ([email or web address]) on 09/07/25 at 17:59. Electronically submitted by Alexus Villegas ([email or web address]). I personally scribed for CAROLINA DURHAM DO ([email or web address]) on 09/07/25 at 21:59. Electronically submitted by Adele Pinto ([email or web address]). CAROLINA DURHAM DO Sep 07, 2025 17:59
[2025-09-07] MEDS: FUROSEMIDE 40 MG/4 ML VIAL IV ONE (18:15)
--- NOTE | 2025-09-07 18:29 | ECG ---
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
--- NOTE | 2025-09-07 19:03 | DVH ---
CHEST RADIOGRAPH Indication: SOB Technique: Single frontal view of the chest was obtained Comparison: XY CHEST PORTABLE on DOS: 01/31/23, CHEST PORTABLE on DOS: 07/04/22, CHEST PORTABLE on DOS: 12/03/21 FINDINGS: Lines and Tubes: None Lungs: Bilateral perihilar bronchovascular prominence. Pleura: No effusion. No pneumothorax. Cardiomediastinal contours: Cardiac size upper limits of normal Bones: No acute osseous abnormality. Mild dextroscoliosis of the thoracic spine may be positional the re are no prior studies for comparison IMPRESSION: 1. Findings may represent congestive failure or chronic disease.
[2025-09-07 19:08] LABS: Hematocrit 29.8 % (41.0-53.0); Hemoglobin 8.5 g/dL (13.5-17.5); Mean Corpuscular Hemoglobin 18.0 pg (28.0-32.0); Mean Corpuscular Volume 63.0 fL (80.0-100.0)
[2025-09-07] MEDS: VANCOMYCIN 1GM/250ML KIT 250 ML IV STA (19:13)
[2025-09-07] MEDS: PIPERACILLIN-TAZOB 3.375GM 100 ML IV ONE (19:15)
--- NOTE | 2025-09-07 19:18 | DVH ---
CLINICAL HISTORY: ABD PAIN TECHNIQUE: CT of the abdomen and pelvis was performed without IV contrast. This exam was performed ac cording to our departmental dose optimization program. Up-to-date CT equipment and radiation dose red uction techniques are utilized as appropriate. CTDI 28 DLP 1817 COMPARISON: The spleen, adrenal glands, gallbladder, FINDINGS: Abdomen/Pelvis: The spleen, adrenal glands, left kidney, bladder, and prostate gland are grossly unremarkable. There are a few tiny gallstones. There is eluv-du-bhzngtth pancreatic parenchymal atrophy. Hypodense and hyperdense right renal lesion s are incompletely characterized due to lack of IV contrast. The abdominal aorta is normal in course and caliber. There are mild atherosclerotic calcifications. There is no free intraperitoneal air or fluid. There is no enlarged abdominal pelvic lymph node. There is no bowel wall thickening or dilatation. The appendix is normal. There is extensive soft tissue air which appears to be organizing, measuring up to 15.8 x 5.2 cm dougherty s axially within the lower anterior abdominal wall subcutaneous fat, much greater on the right. This air extends to the right anterior and anterolateral abdominal wall musculature, where there is a 7.7 x 6.4 x 11.8 cm fluid collection. This collection is just superficial to the abdominal wall. The adj acent musculature demonstrates moderate soft tissue thickening. There is extensive focal soft tissue thickening at the cecum. The appendix appears normal. There is colonic diverticulosis. Other: The imaged lower thorax demonstrates mild nonspecific scarring at both lung bases. There are coronary artery calcifications. There is bilateral gynecomastia. No acute osseous abnormality is evident. Impression: Extensive collection of air within the anterior abdominal wall subcutaneous fat, greatest at the righ t lower abdomen, measuring up to 15.8 x 5.2 cm trans axially. Appearance raises the possibility of ne crotizing fasciitis. 7.7 x 6.4 x 11.8 cm fluid collection at the right lower abdominal subcutaneous fat with involvement o f the right lateral abdominal wall and cecum. Differential includes an infectious process including a bscess formation and/or hematoma. An underlying lesion is not excluded. Consider repeat study with co ntrast. Tiny gallstone. Oeoo-mo-ylqpdkux pancreatic parenchymal atrophy.
[2025-09-07 19:29] LABS: Alanine Aminotransferase 22 U/L (7-40); Albumin 3.3 g/dL (3.2-4.8); Anion Gap 15 (5-15); BUN/Creatinine Ratio 13.2 (10.0-20.0); Blood Urea Nitrogen 12 mg/dL (9-23); Chloride 104 mmol/L (98-107); Potassium 3.6 mmol/L (3.5-5.1); Sodium 139 mmol/L (136-145); Total Protein 6.6 g/dL (5.7-8.2)
[2025-09-07 19:30] LABS: Bilirubin, Total 0.5 mg/dL (0.2-1.0)
[2025-09-07 19:32] LABS: Alkaline Phosphatase 131 U/L (46-116); Calcium 8.5 mg/dL (8.7-10.4); Carbon Dioxide 20 mmol/L (20-31); Glucose 219 mg/dL (74-106)
[2025-09-07 19:37] LABS: Lactic Acid w/Reflex 4.8 mmol/L (0.4-2.0)
[2025-09-07 19:45] LABS: Anisocytosis Slight; Total Cells Counted 100.0 (100)
[2025-09-07 19:58] LABS: INR 1.25 (0.9-1.15); Partial Thromboplastin Time 33.0 SEC (24.5-34.5); Prothrombin Time 13.0 sec (9.3-11.8)
[2025-09-07 21:20] LABS: Urine Protein, UAD TRACE (Negative)
[2025-09-08] VITALS (22 sets, daily range): BP systolic 128–163; BP diastolic 59–74; PULSE 103–121; RESP 13–29; TEMP 98.1–99.3; O2SAT 95–100
[2025-09-08] MEDS ORDERED: NITROGLYCERIN 0.4 MG SL TAB SL PRN
[2025-09-08] MEDS ORDERED: MORPHINE SULFATE INJ 2 MG/ml SYRG IV PRN
[2025-09-08] MEDS: SODIUM CHLORIDE 0.9% 500 ML IV ONE
[2025-09-08] MEDS ORDERED: ONDANSETRON HCL 4 MG/2 ML VIAL IV PRN
[2025-09-08] MEDS ORDERED: VANCOMYCIN PER PHARMACY 0 MG IV SCH
--- NOTE | 2025-09-08 00:14 | DVHHP2 ---
History of Present Illness Reason for Visit: Shortness for breath History of Present Illness 75-year-old male presents for evaluation of shortness for breath. Patient initially presented with complaints of a one day history of worsening shortness for breath not being relieved with his inhaler and nebulizer at home. He does have a history of COPD. He later reported also a one month history of right lower quadrant abdominal pain that has worsened over the past one-week. She also associates having chills. No nausea or vomiting. No other acute complaints reported. Past Medical History Hypertension, diabetes mellitus, AAA, COPD, PE Past Surgical History Denies Family History Noncontributory Smoke: No ALCOHOL: none Drugs: None Lives: with Family Review of Systems Review of Systems Review of systems are currently negative otherwise addressed in HPI. Allergies: Coded Allergies: NO KNOWN ALLERGIES (Unverified , 09/07/25) Medications Current Medications Medications Dose Ordered Sig/Nivia Route Start Time Stop Time Status Last Admin Dose Admin Piperacillin Sod/ Tazobactam Sod 100 ml @ 25 mls/hr Q6HR IV 09/08/25 00:00 Vancomycin HCl 0 ml @ 0 mls/hr UD IV 09/08/25 00:00 UNV Diagnostic Test (Pha) 1 strip Q6HR 09/08/25 00:00 Insulin Human Regular Q6HR SC 09/08/25 00:00 Dextrose 50 ml UD PRN IV 09/08/25 00:00 Ondansetron HCl 4 mg Q4HP PRN IV 09/08/25 00:00 Nitroglycerin 0.4 mg Q5MINP PRN SL 09/08/25 00:00 Morphine Sulfate 2 mg Q30M PRN IV 09/08/25 00:00 Hydromorphone HCl 0.5 mg Q6HPRN PRN IV 09/08/25 00:00 Exam Vital Signs Vital Signs Date Time Temp Pulse Resp B/P (MAP) Pulse Ox O2 Delivery O2 Flow Rate FiO2 09/07/25 18:15 128/59 09/07/25 17:59 121 09/07/25 17:30 18 100 Nasal Cannula* 4 36 09/07/25 17:30 98.5 98.5 Exam Gen: 75-year-old male in mild distress, morbidly obese Skin: Warm, dry, normal color and texture, no rash. HEENT: Normocephalic atraumatic, mucous membranes moist and pink. Neck: Cervical and supraclavicular nodes normal without enlargement, trachea is midline, thyroid gland is normal without masses. Pulmonary: Diminished breath sounds bilaterally Cardiac: Regular rate and rhythm. No murmur Abdomen: Soft, right lower quadrant tenderness, nondistended, bowel sounds present all 4 quadrants, no guarding, no rigidity, no organomegaly. Extremities: No cyanosis, clubbing, no edema Neuro: Cranial nerves II through XII grossly intact, normal affect and speech, no focal motor deficits. Labs/Xrays ORDERING PHYSICIAN: CAROLINA DURHAM DO PROCEDURE(s): ABPL - CT AB PEL WO CON-NO ORAL OR IV REASON: ABD PAIN ORDER NUMBER(s): [id number], ACCESSION NUMBER(s): [id number] CLINICAL HISTORY: ABD PAIN TECHNIQUE: CT of the abdomen and pelvis was performed without IV contrast. This exam was performed according to our departmental dose optimization program. Up- to-date CT equipment and radiation dose reduction techniques are utilized as appropriate. CTDI 28 DLP 1817 COMPARISON: The spleen, adrenal glands, gallbladder, FINDINGS: Abdomen/Pelvis: The spleen, adrenal glands, left kidney, bladder, and prostate gland are grossly unremarkable. There are a few tiny gallstones. There is [id number] pancreatic parenchymal atrophy. Hypodense and hyperdense right renal lesions are incompletely characterized due to lack of IV contrast. The abdominal aorta is normal in course and caliber. There are mild atherosclerotic calcifications. There is no free intraperitoneal air or fluid. There is no enlarged abdominal pelvic lymph node. There is no bowel wall thickening or dilatation. The appendix is normal. There is extensive soft tissue air which appears to be organizing, measuring up to 15.8 x 5.2 cm trans axially within the lower anterior abdominal wall subcutaneous fat, much greater on the right. This air extends to the right anterior and anterolateral abdominal wall musculature, where there is a 7.7 x 6.4 x 11.8 cm fluid collection. This collection is just superficial to the abdominal wall. The adjacent musculature demonstrates moderate soft tissue thickening. There is extensive focal soft tissue thickening at the cecum. The appendix appears normal. There is colonic diverticulosis. Other: The imaged lower thorax demonstrates mild nonspecific scarring at both lung bases. There are coronary artery calcifications. There is bilateral gynecomastia. No acute osseous abnormality is evident. Impression: Extensive collection of air within the anterior abdominal wall subcutaneous fat, greatest at the right lower abdomen, measuring up to 15.8 x 5.2 cm trans axially. Appearance raises the possibility of necrotizing fasciitis. 7.7 x 6.4 x 11.8 cm fluid collection at the right lower abdominal subcutaneous fat with involvement of the right lateral abdominal wall and cecum. Differential includes an infectious process including abscess formation and/or hematoma. An underlying lesion is not excluded. Consider repeat study with contrast. Tiny gallstone. [id number] pancreatic parenchymal atrophy. RING PHYSICIAN: CAROLINA DURHAM DO PROCEDURE(s): CXRP - CHEST PORTABLE REASON: SOB ORDER NUMBER(s): [id number], ACCESSION NUMBER(s): [id number] CHEST RADIOGRAPH Indication: SOB Technique: Single frontal view of the chest was obtained Comparison: XY CHEST PORTABLE on DOS: 01/31/23, CHEST PORTABLE on DOS: 07/04/22, CHEST PORTABLE on DOS: 12/03/21 FINDINGS: Lines and Tubes: None Lungs: Bilateral perihilar bronchovascular prominence. Pleura: No effusion. No pneumothorax. Cardiomediastinal contours: Cardiac size upper limits of normal Bones: No acute osseous abnormality. Mild dextroscoliosis of the thoracic spine may be positional there are no prior studies for comparison IMPRESSION: 1. Findings may represent congestive failure or chronic disease. Labs Test 09/07/25 22:08 09/07/25 21:09 09/07/25 20:52 09/07/25 18:57 Range/Units Troponin I High Sensitivity 4 </=54 ng/L Lactic Acid Level 4.1 *H 0.4-2.0 mmol/L Urine Color Yellow Yellow Urine Clarity Clear Clear Urine pH 6.0 5.0-9.0 Urine Specific [place] 1.015 1.001-1.035 Urine Protein Trace H Negative Urine Ketones Negative Negative Urine Blood Negative Negative /uL Urine Nitrite Negative Negative Urine Bilirubin Negative Negative Urine Urobilinogen 2 H Negative mg/dL Urine Leukocyte Esterase Negative Negative /uL Urine RBC 1 0 - 3 /hpf Urine Microscopic WBC 4 H 0-3 /HPF Urine Squamous Epithelial Cells Few <5 /hpf Urine Bacteria None seen None Seen /hpf Urine Glucose Normal Normal mg/dL White Blood Count 25.7 H 4.4-10.8 10^3/uL Red Blood Count 4.72 4.5-5.90 10^6/uL Hemoglobin 8.5 L 13.5-17.5 g/dL Hematocrit 29.8 L 41.0-53.0 % Mean Corpuscular Volume 63.0 L 80.0-100.0 fL Mean Corpuscular Hemoglobin 18.0 L 28.0-32.0 pg Mean Corpuscular Hemoglobin Concent 28.6 L 32.0-36.0 g/dL Red Cell Distribution Width 20.9 H 11.8-14.3 % Platelet Count 508 H 140-450 10^3/uL Mean Platelet Volume 6.6 L 6.9-10.8 fL Neutrophils (%) (Auto) 37.0-80.0 % Lymphocytes (%) (Auto) 10.0-50.0 % Monocytes (%) (Auto) 0.0-12.0 % Basophils (%) (Auto) 0.0-2.0 % Neutrophils # (Auto) 1.6-8.6 10 ^3/uL Lymphocytes # (Auto) 0.4-5.4 10 ^3/uL Monocytes # (Auto) 0-1.3 10 ^3/uL Differential Total Cells Counted 100.0 100 Neutrophils % (Manual) 87 H 37.0-80.0 Band Neutrophils % (Manual) 6 Lymphocytes % (Manual) 4 L 10.0-50.0 Monocytes % (Manual) 3 0-12 Eosinophils % (Manual) 0 0-7 Basophils % (Manual) 0 0.0-2.0 Metamyelocytes % (manual) 0 Myelocytes % (Manual) 0 Promyelocytes % (Manual) 0 Blast Cells % (Manual) 0 Reactive Lymphocytes 0 Platelet Estimate Increased Hypochromasia (manual) Marked Anisocytosis (manual) Slight Microcytosis Marked Prothrombin Time 13.0 H 9.3-11.8 sec Prothrombin Time INR 1.25 H 0.9-1.15 Activated Partial Thromboplast Time 33.0 24.5-34.5 SEC Sodium Level 139 136-145 mmol/L Potassium Level 3.6 3.5-5.1 mmol/L Chloride Level 104 98-107 mmol/L Carbon Dioxide Level 20 20-31 mmol/L Anion Gap 15 5-15 Blood Urea Nitrogen 12 9-23 mg/dL Creatinine 0.91 0.700-1.30 mg/dL Glomerular Filtration Rate Calc 88 >90 mL/min BUN/Creatinine Ratio 13.2 10.0-20.0 Serum Glucose 219 H 74-106 mg/dL Calcium Level 8.5 L 8.7-10.4 mg/dL Total Bilirubin 0.5 0.2-1.0 mg/dL Aspartate Amino Transferase (AST) 21 13-40 U/L Alanine Aminotransferase (ALT) 22 7-40 U/L Alkaline Phosphatase 131 H 46-116 U/L B-Type Natriuretic Peptide 27.80 0-100 pg/mL Total Protein 6.6 5.7-8.2 g/dL Albumin 3.3 3.2-4.8 g/dL SEPSIS Sepsis Screen Date sepsis recognized/suspect: Sep 07, 2025 Time Sepsis recognized/suspect: 1729 Recent Procedure: No On Antibiotic Therapy: Yes Respiratory Rate >20: No Heart Rate >90: Yes Temp<36 C (96.8 F) or >38.3 C: No SBP <90 or MAP <65 mmHG: No New Acute Mental Status Change: No Is the patient on CPAP, BIPAP,: No Physician Orders Hand Trimmer (09/07/25 ) Chest Portable (09/07/25 18:12) Ct Ab Pel Wo Con-No Oral Or Iv (09/07/25 18:12) Accucheck (09/07/25 19:13) Blood Culture (09/07/25 19:13) Notify Md If Map <65 Or Bp<90 (09/07/25 19:13) If Map<65 Start Vasopressor (09/07/25 19:13) Sepsis Fluid Exclusion: (09/07/25 19:13) Sepsis Reassesment After Fluid (09/07/25 20:13) * Surgical Consult (09/07/25 ) Sodium Chloride 0.9% (09/08/25 00:00) Sodium Chloride 0.9% (09/08/25 00:00) Piperacillin-Tazob 3.375gm (Zosyn 3.375g (09/08/25 00:00) Vancomycin Per Pharmacy (09/08/25 00:00) Type And Screen (09/07/25 23:48) Glucose Blood (Accu-Chek Comfort Curve T (09/08/25 00:00) Insulin R (Human) (Insulin R) (09/08/25 00:00) Dextrose 50% Syringe (09/08/25 00:00) Admit (09/07/25 23:48) Ondansetron Hcl (Zofran) (09/08/25 00:00) Complete Blood Count (09/08/25 04:00) Comprehensive Metabolic Panel (09/08/25 04:00) Npo (Nothing By Mouth) Diet (09/08/25 Breakfast) Condition: Serious (09/07/25 23:48) Bedrest With Bathroom Privileg (09/07/25 23:48) Nitroglycerin Sublingual (Ntrostat Subli (09/08/25 00:00) Morphine Sulfate Injection (09/08/25 00:00) Stat Ekg For Chest Pain (09/07/25 23:48) Notify Of Changes From Base (09/07/25 23:48) Corrections Sergeant For 24 Hours (09/07/25 23:48) Emergency Dysrhythmia Protocol (09/07/25 23:48) Rhythm Strips Once Every Shift (09/07/25 23:48) Oxygen By Nasal Cannula (09/07/25 23:48) Hydromorphone Injection (Dilaudid Inject (09/08/25 00:00) Vital Signs Date Time Temp Pulse Resp B/P (MAP) Pulse Ox O2 Delivery O2 Flow Rate FiO2 09/07/25 18:15 128/59 09/07/25 17:59 121 09/07/25 17:30 120 18 100 Nasal Cannula* 4 36 09/07/25 17:30 98.5 121 19 135/59 (84) 100 98.5 09/07/25 17:19 121 09/07/25 17:18 98.6 110 20 128/76 94 98.6 Laboratory Tests Test 09/07/25 18:57 09/07/25 21:09 Lactic Acid Level 4.8 mmol/L (0.4-2.0) *H 4.1 mmol/L (0.4-2.0) *H White Blood Count 25.7 10^3/uL (4.4-10.8) H Medications Medications Dose Ordered Sig/Nivia Route Start Time Stop Time Status Last Admin Dose Admin Furosemide 40 mg ONCE ONCE IV 09/07/25 18:15 09/07/25 18:16 DC 09/07/25 18:15 40 MG Piperacillin Sod/ Tazobactam Sod 100 ml @ 100 mls/hr ONCE ONCE IV 09/07/25 19:15 09/07/25 20:40 DC 09/07/25 19:15 100 MLS/HR Vancomycin HCl 250 ml @ 250 mls/hr STAT STAT IV 09/07/25 19:13 09/07/25 20:40 DC 09/07/25 19:13 250 MLS/HR Assessment/Plan Assessment/Plan Assessment Sepsis Abdominal abscess versus necrotizing fasciitis COPD exacerbation Diabetes mellitus Leukocytosis Morbid obesity Plan Admit the patient to [facility] to the hospitalist Surgical consultation Vancomycin/Zosyn Maintenance IV fluids Pain management Med nebs Continue treatment per orders Total critical care time excluding procedures performed this 55 minutes. Plan discussed with: Patient My Orders Orders - KEVIN DIXON [facility] Procedure Category Date Status Time Sodium Chloride 0.9% PHA 09/08/25 In Process 00:00 Sodium Chloride 0.9% PHA 09/08/25 In Process 00:00 Piperacillin-Tazob PHA 09/08/25 In Process 3.375gm (Zosyn 3.375g 00:00 Vancomycin Per PHA 09/08/25 Pending Pharmacy 00:00 Type And Screen BBK 09/07/25 Logged 23:48 Glucose Blood PHA 09/08/25 In Process (Accu-Chek Comfort 00:00 Insulin R (Human) PHA 09/08/25 In Process (Insulin R) 00:00 Dextrose 50% Syringe PHA 09/08/25 In Process 00:00 Admit ADMIT 09/07/25 Transmitted 23:48 Ondansetron Hcl PHA 09/08/25 In Process (Zofran) 00:00 Complete Blood Count LAB 09/08/25 Logged 04:00 Comprehensive LAB 09/08/25 Logged Metabolic Panel 04:00 Npo (Nothing By DIET 09/08/25 Transmitted Mouth) Diet Breakfast Condition: Serious [facility] 09/07/25 In Process 23:48 Bedrest With Bathroom [facility] 09/07/25 In Process Privileg 23:48 Nitroglycerin PHA 09/08/25 In Process Sublingual (Ntrostat 00:00 Morphine Sulfate PHA 09/08/25 In Process Injection 00:00 Stat Ekg For Chest [facility] 09/07/25 In Process Pain 23:48 Notify Md Of Changes [facility] 09/07/25 In Process From Base 23:48 Corrections Sergeant For [facility] 09/07/25 In Process 24 Hours 23:48 Emergency Dysrhythmia [place] 09/07/25 In Process Protocol 23:48 Rhythm Strips Once [facility] 09/07/25 In Process Every Shift 23:48 Oxygen By Nasal RT 09/07/25 Transmitted Cannula 23:48 Hydromorphone PHA 09/08/25 In Process Injection (Dilaudid 00:00 Date of Service: Sep 07, 2025 Billing Provider: KEVIN DIXON Common Visit Codes: [id number] CARE 30-74 MIN KEVIN DIXON Sep 08, 2025 00:14
[2025-09-08] MEDS ORDERED: ALBUTEROL SULF 2.5 MG/0.5ML(0.5%) NEB SOLN NEB PRN (00:15)
[2025-09-08] MEDS: HYDROmorphone HCL 2 MG/ML VL/or syr IV PRN (01:01)
[2025-09-08] MEDS: SODIUM CHLORIDE 0.9% 1,000 ML IV ONE (07:00)
[2025-09-08] MEDS: PIPERACILLIN-TAZOB 3.375GM 100 ML IV SCH ×2 (08:18)
[2025-09-08 09:08] LABS: Hemoglobin 7.8 g/dL (13.5-17.5); Mean Corpuscular Hemoglobin 18.4 pg (28.0-32.0)
[2025-09-08 09:10] LABS: Hematocrit 26.7 % (41.0-53.0); Mean Corpuscular Volume 63.3 fL (80.0-100.0)
[2025-09-08 09:20] LABS: Alanine Aminotransferase 23 U/L (7-40); Anion Gap 11 (5-15); BUN/Creatinine Ratio 14.4 (10.0-20.0); Blood Urea Nitrogen 13 mg/dL (9-23); Carbon Dioxide 25 mmol/L (20-31); Chloride 104 mmol/L (98-107); Potassium 3.8 mmol/L (3.5-5.1); Sodium 140 mmol/L (136-145); Total Protein 6.2 g/dL (5.7-8.2)
[2025-09-08 09:21] LABS: Albumin 3.1 g/dL (3.2-4.8); Alkaline Phosphatase 123 U/L (46-116); Bilirubin, Total 0.4 mg/dL (0.2-1.0); Calcium 7.8 mg/dL (8.7-10.4); Glucose 255 mg/dL (74-106)
[2025-09-08 11:32] LABS: Total Cells Counted 100.0 (100)
[2025-09-08 11:33] LABS: Stomatocytes Few
[2025-09-08] MEDS: VANCOMYCIN 1.5GM/250ML 250 ML IV SCH (12:01)
[2025-09-08] MEDS ORDERED: CLINDAMYCIN 600MG IV 50 ML IV ONE (13:00)
[2025-09-08] MEDS ORDERED: DEXTROSE (50%) 50ML SYRG IV PRN ×2 (13:00)
--- NOTE | 2025-09-08 13:03 | DVHPN2 ---
Progress Note Date Seen: Sep 08, 2025 Medical Necessity Reason Pt with a Central, PICC or Fol: No Subjective Patient reports: No new complaints Review of Systems: HEENT:Normal, CVS:Normal, RESPIRATORY:Normal, GI:Normal, :Normal, MSK:Normal, NEURO:Normal Objective vital signs Vital Sign Date Time Temp Pulse Resp B/P (MAP) Pulse Ox O2 Delivery O2 Flow Rate FiO2 09/08/25 10:00 99 Nasal Cannula 3.0 09/08/25 10:00 32 09/08/25 08:00 108 09/08/25 08:00 23 09/08/25 08:00 98.5 151/66 (94) 98.5 medications Current Medications Medications Dose Ordered Sig/Nivia Route Start Time Stop Time Status Last Admin Dose Admin Vancomycin HCl 0 ml @ 0 mls/hr UD IV 09/08/25 00:00 Diagnostic Test (Pha) 1 strip Q6HR 09/08/25 00:00 09/08/25 12:18 1 STRIP Dextrose 50 ml UD PRN IV 09/08/25 00:00 Ondansetron HCl 4 mg Q4HP PRN IV 09/08/25 00:00 Nitroglycerin 0.4 mg Q5MINP PRN SL 09/08/25 00:00 Morphine Sulfate 2 mg Q30M PRN IV 09/08/25 00:00 Hydromorphone HCl 0.5 mg Q6HPRN PRN IV 09/08/25 00:00 09/08/25 01:01 0.5 MG Albuterol 2.5 mg Q6HPRN PRN NEB 09/08/25 00:15 Ipratropium Cas[place] 0.5 mg Q6HPRN PRN NEB 09/08/25 00:15 Piperacillin Sod/ Tazobactam Sod 100 ml @ 25 mls/hr Q6H IV 09/08/25 08:30 09/08/25 08:18 25 MLS/HR Vancomycin HCl 250 ml @ 166.667 mls/hr Q12H IV 09/08/25 12:00 09/08/25 12:01 166.667 MLS/HR Diagnostic Test (Pha) 1 strip Q6HR 09/08/25 18:00 UNV Insulin Human Regular Q6HR SC 09/08/25 18:00 UNV Dextrose 50 ml UD PRN IV 09/08/25 13:00 UNV Clindamycin Phosphate 50 ml @ 50 mls/hr Q8HR IV 09/08/25 14:00 UNV Pantoprazole Sodium 40 mg DAILY IV 09/09/25 10:00 UNV Examination: GENERAL:Normal, HEENT:Normal, NECK:Normal, LUNGS:Normal, CVS:Normal, ABDOMEN:Normal, ABDOMEN:Abnormal (abd tenderness- right), MSK:Normal, MSK:Abnormal (edema++), SKIN:Normal, NEURO:Normal, :Normal laboratory and microbiology Laboratory Tests 09/08/25 08:39 Test 09/08/25 08:39 Range/Units Serum Glucose 255 H 74-106 mg/dL Microbiology Date/Time Source Procedure Growth Status 09/07/25 19:44 Blood Blood Culture - Preliminary Resulted Problem List/Assessment/Plan Problem List/Assessment/Plan #1 sepsis with ?necrotizing fascitis: surg eval, iv antibiotics #2 dm: ssi #3 acute systolic/diastolic heart failure: echo #4 morbid obesity #5 h/o pe: doppler both legs #6 copd #7 acute resp failure: cont oxygen #8 anemia #9 htn #10 ?aaa Plan discussed with: Patient My Orders My Orders Orders - KEVIN NICKERSON MD Procedure Category Date Status Time Glucose Blood PHA 09/08/25 Logged (Accu-Chek Comfort 18:00 Insulin R (Human) PHA 09/08/25 Logged (Insulin R) 18:00 Dextrose 50% Syringe PHA 09/08/25 Logged 13:00 Clindamycin 600mg Iv PHA 09/08/25 Logged (Cleocin Iv) 13:00 Clindamycin 600mg Iv PHA 09/08/25 Logged (Cleocin Iv) 14:00 Pantoprazole PHA 09/08/25 Logged (Protonix) 13:00 Pantoprazole PHA 09/09/25 Logged (Protonix) 10:00 Bilat Lower Dvt US 09/08/25 Logged 12:48 Echo 2d Mode Cardiac US 09/08/25 Logged DOP 12:48 Furosemide Injection PHA 09/08/25 Logged (Lasix Injection) 13:00 Critical Care Time (mins): 61 (critical care time excluding procedures is 61 mins) Date of Service: Sep 08, 2025 Billing Provider: KEVIN NICKERSON MD Common Visit Codes: [id number] CARE 30-74 KEVIN MARTINEZ MD Sep 08, 2025 13:03
--- NOTE | 2025-09-08 13:23 | DVHINCON2 ---
Date of service: Sep 08, 2025 Family History: FH: breast cancer G8 SISTER Hypertension G8 MOTHER Allergies: Coded Allergies: Lisinopril (Verified Allergy, Unknown, 09/08/25) Current Medications Current Medications Medications (Trade) Dose Ordered Sig/Nivia Route PRN Reason Start Time Stop Time Status Last Admin Vancomycin HCl 250 ml @ 250 mls/hr STAT STAT IV 09/07/25 19:13 09/07/25 20:40 DC 09/07/25 19:13 Piperacillin Sod/ Tazobactam Sod 100 ml @ 25 mls/hr Q6HR IV 09/08/25 00:00 09/08/25 06:32 DC 09/08/25 00:00 Vancomycin HCl 0 ml @ 0 mls/hr UD IV 09/08/25 00:00 Diagnostic Test (Pha) (Accu-Chek Comfort Curve T) 1 strip Q6HR 09/08/25 00:00 09/08/25 13:13 DC 09/08/25 12:18 Insulin Human Regular (InsuLIN R) Q6HR SC 09/08/25 00:00 09/08/25 12:57 DC 09/08/25 12:25 Dextrose 50 ml UD PRN IV Blood Sugar LESS THAN 60 09/08/25 00:00 09/08/25 13:12 DC Ondansetron HCl (Zofran) 4 mg Q4HP PRN IV NAUSEA / VOMITING 09/08/25 00:00 Nitroglycerin (Ntrostat Sublingual) 0.4 mg Q5MINP PRN SL FOR CHEST PAIN 09/08/25 00:00 Morphine Sulfate 2 mg Q30M PRN IV FOR CHEST PAIN 09/08/25 00:00 Hydromorphone HCl (Dilaudid Injection) 0.5 mg Q6HPRN PRN IV SEVERE PAIN (7-10 PAIN SCALE) 09/08/25 00:00 09/08/25 01:01 Albuterol (Ventolin Medneb) 2.5 mg Q6HPRN PRN NEB SHORTNESS OF BREATH 09/08/25 00:15 Ipratropium Desha (Atrovent Medneb) 0.5 mg Q6HPRN PRN NEB SHORTNESS OF BREATH 09/08/25 00:15 Piperacillin Sod/ Tazobactam Sod 100 ml @ 25 mls/hr Q6H IV 09/08/25 08:30 09/08/25 08:18 Vancomycin HCl 250 ml @ 166.667 mls/hr Q12H IV 09/08/25 12:00 09/08/25 12:01 Diagnostic Test (Pha) (Accu-Chek Comfort Curve T) 1 strip Q6HR 09/08/25 18:00 Insulin Human Regular (InsuLIN R) Q6HR SC 09/08/25 18:00 Dextrose 50 ml UD PRN IV Blood Sugar LESS THAN 60 09/08/25 13:00 Clindamycin Phosphate 50 ml @ 50 mls/hr Q8HR IV 09/08/25 14:00 Pantoprazole Sodium (Protonix) 40 mg DAILY IV 09/09/25 10:00 Vital Signs Vital Signs Date Time Temp Pulse Resp B/P (MAP) Pulse Ox O2 Delivery O2 Flow Rate FiO2 09/08/25 10:00 99 Nasal Cannula 3.0 09/08/25 10:00 32 09/08/25 08:00 108 09/08/25 08:00 23 09/08/25 08:00 98.5 151/66 (94) 98.5 Labs/Diagnostic Data Labs Test 09/08/25 11:57 09/08/25 08:39 09/07/25 22:08 09/07/25 21:09 Range/Units POC Glucose 229 H 70-106 mg/dl White Blood Count 27.7 H 4.4-10.8 10^3/uL Red Blood Count 4.22 L 4.5-5.90 10^6/uL Hemoglobin 7.8 L 13.5-17.5 g/dL Hematocrit 26.7 #L 41.0-53.0 % Mean Corpuscular Volume 63.3 L 80.0-100.0 fL Mean Corpuscular Hemoglobin 18.4 L 28.0-32.0 pg Mean Corpuscular Hemoglobin Concent 29.1 L 32.0-36.0 g/dL Red Cell Distribution Width 21.0 H 11.8-14.3 % Platelet Count 459 H 140-450 10^3/uL Mean Platelet Volume 6.5 L 6.9-10.8 fL Neutrophils (%) (Auto) 37.0-80.0 % Lymphocytes (%) (Auto) 10.0-50.0 % Monocytes (%) (Auto) 0.0-12.0 % Basophils (%) (Auto) 0.0-2.0 % Neutrophils # (Auto) 1.6-8.6 10 ^3/uL Lymphocytes # (Auto) 0.4-5.4 10 ^3/uL Monocytes # (Auto) 0-1.3 10 ^3/uL Differential Total Cells Counted 100.0 100 Neutrophils % (Manual) 87 H 37.0-80.0 Band Neutrophils % (Manual) 3 Lymphocytes % (Manual) 5 L 10.0-50.0 Monocytes % (Manual) 5 0-12 Eosinophils % (Manual) 0 0-7 Basophils % (Manual) 0 0.0-2.0 Metamyelocytes % (manual) 0 Myelocytes % (Manual) 0 Promyelocytes % (Manual) 0 Blast Cells % (Manual) 0 Reactive Lymphocytes 0 Platelet Estimate Increased Large Platelets Few Hypochromasia (manual) Marked Microcytosis Marked Stomatocytes Few Schistocytes Few Sodium Level 140 136-145 mmol/L Potassium Level 3.8 3.5-5.1 mmol/L Chloride Level 104 98-107 mmol/L Carbon Dioxide Level 25 20-31 mmol/L Anion Gap 11 5-15 Blood Urea Nitrogen 13 9-23 mg/dL Creatinine 0.90 0.700-1.30 mg/dL Glomerular Filtration Rate Calc 90 >90 mL/min BUN/Creatinine Ratio 14.4 10.0-20.0 Serum Glucose 255 H 74-106 mg/dL Calcium Level 7.8 L 8.7-10.4 mg/dL Total Bilirubin 0.4 0.2-1.0 mg/dL Aspartate Amino Transferase (AST) 21 13-40 U/L Alanine Aminotransferase (ALT) 23 7-40 U/L Alkaline Phosphatase 123 H 46-116 U/L Total Protein 6.2 5.7-8.2 g/dL Albumin 3.1 L 3.2-4.8 g/dL Troponin I High Sensitivity 4 </=54 ng/L Lactic Acid Level 4.1 *H 0.4-2.0 mmol/L Test 09/07/25 20:52 09/07/25 18:57 Range/Units Urine Color Yellow Yellow Urine Clarity Clear Clear Urine pH 6.0 5.0-9.0 Urine Specific [place] 1.015 1.001-1.035 Urine Protein Trace H Negative Urine Ketones Negative Negative Urine Blood Negative Negative /uL Urine Nitrite Negative Negative Urine Bilirubin Negative Negative Urine Urobilinogen 2 H Negative mg/dL Urine Leukocyte Esterase Negative Negative /uL Urine RBC 1 0 - 3 /hpf Urine Microscopic WBC 4 H 0-3 /HPF Urine Squamous Epithelial Cells Few <5 /hpf Urine Bacteria None seen None Seen /hpf Urine Glucose Normal Normal mg/dL Anisocytosis (manual) Slight Prothrombin Time 13.0 H 9.3-11.8 sec Prothrombin Time INR 1.25 H 0.9-1.15 Activated Partial Thromboplast Time 33.0 24.5-34.5 SEC B-Type Natriuretic Peptide 27.80 0-100 pg/mL Microbiology Date/Time Source Procedure Growth Status 09/07/25 19:44 Blood Blood Culture - Preliminary Resulted Assessment patient admitted with c/o shortness of breath was found to have an inflammatory reaction in the right lower quadrant of his abdomen as an incidental finding on CT scan, he is a diabetic who self-injects into the area of concern and the air within the phlegmon in that area is most likely due to the self injections. abdomen is otherwise non tender, non distended, wi9ll ask radiology to attempt aspiration for cultures. Plan discussed with: Patient, Other MINDY RAIN MD Sep 08, 2025 13:23
[2025-09-08] MEDS: PANTOPRAZOLE 40 MG/10 ML VIAL INJ IV ONE (14:21)
[2025-09-08] MEDS: CLINDAMYCIN 600MG IV 50 ML IV SCH (14:22)
[2025-09-08] MEDS: FUROSEMIDE 20 MG/2 ML VIAL IV ONE (14:22)
--- NOTE | 2025-09-08 14:57 | DVH ---
Bilateral lower extremity venous duplex Clinical History: Edema Comparison: None Findings: Duplex Doppler evaluation of the deep venous systems of both lower extremities from the common femora l veins to the popliteal veins including color Doppler and spectral/pulsed waveform analysis was perf ormed. RIGHT SIDE: The common femoral vein demonstrates appropriate compressibility and waveform variability. There is compressibility/patency of the great saphenous vein at the proximal thigh. The femoral vein demonstrates appropriate compressibility and waveform variability. The deep femoral vein demonstrates appropriate compressibility and waveform variability. The popliteal vein demonstrates appropriate compressibility and waveform variability. There is normal compressibility at the tibioperoneal trunk. LEFT SIDE: The common femoral vein demonstrates appropriate compressibility and waveform variability. There is compressibility/patency of the great saphenous vein at the proximal thigh. The femoral vein demonstrates appropriate compressibility and waveform variability. The deep femoral vein demonstrates appropriate compressibility and waveform variability. The popliteal vein demonstrates appropriate compressibility and waveform variability. There is normal compressibility at the tibioperoneal trunk. IMPRESSION: No right or left femoropopliteal venous thrombosis. If clinical concern/symptoms persist or worsen, short-interval follow-up study is suggested. END IMPRESSION:
[2025-09-08] MEDS: ACCU-CHEK COMFORT CURVE STRIP VI SCH ×2 (18:01)
[2025-09-08] MEDS: InsuLIN REG 1unit/0.01ml Soln (100units/ml) SC SCH ×2 (18:13)
[2025-09-09] VITALS (28 sets, daily range): BP systolic 116–167; BP diastolic 45–128; PULSE 98–112; RESP 14–30; TEMP 97.6–98.8; O2SAT 96–100
[2025-09-09 04:43] LABS: Hematocrit 31.3 % (41.0-53.0); Hemoglobin 8.9 g/dL (13.5-17.5); Mean Corpuscular Hemoglobin 18.4 pg (28.0-32.0); Mean Corpuscular Volume 64.6 fL (80.0-100.0); Nucleated Red Blood Cells % 0.0 %
[2025-09-09 04:59] LABS: Alanine Aminotransferase 24 U/L (7-40); Albumin 3.5 g/dL (3.2-4.8); Alkaline Phosphatase 141 U/L (46-116); Anion Gap 11 (5-15); BUN/Creatinine Ratio 15.7 (10.0-20.0); Bilirubin, Total 0.4 mg/dL (0.2-1.0); Blood Urea Nitrogen 13 mg/dL (9-23); Calcium 8.3 mg/dL (8.7-10.4); Carbon Dioxide 25 mmol/L (20-31); Chloride 104 mmol/L (98-107); Glucose 241 mg/dL (74-106); Potassium 3.5 mmol/L (3.5-5.1); Sodium 140 mmol/L (136-145); Total Protein 7.0 g/dL (5.7-8.2)
[2025-09-09 05:13] LABS: INR 1.17 (0.9-1.15); Partial Thromboplastin Time 26.6 SEC (24.5-34.5); Prothrombin Time 12.2 sec (9.3-11.8)
--- NOTE | 2025-09-09 05:59 | DVH ---
CHEST RADIOGRAPH Indication: chf Technique: Single frontal view of the chest was obtained COMPARISON: XY CHEST PORTABLE on DOS: 09/07/25, XY CHEST PORTABLE on DOS: 01/31/23, CHEST PORTABLE on DOS: 07/04/22, CHEST PORTABLE on DOS: 12/03/21, CHEST PORTABLE on DOS: 11/30/21 FINDINGS: Lines and Tubes: None Lungs: Moderately progressive diffuse increased prominence of the pulmonary vasculature. No definite focal consolidation. No pneumothorax. Cardiomediastinal contours: Unremarkable Bones: Unremarkable IMPRESSION: 1. Moderately progressive pulmonary vascular congestion.
[2025-09-09] MEDS: PANTOPRAZOLE 40 MG/10 ML VIAL INJ IV SCH (09:29)
--- NOTE | 2025-09-09 10:50 | DVH ---
US ABDOMEN LIMITED, HISTORY: POSSIBLE ABSCESS DRAINAGE TECHNICAL DATA: Transverse and longitudinal sonographic images were obtained of the abdominal wall. COMPARISON: None FINDINGS: IMPRESSION: 7.4 x 5.1 x 9.9 cm fluid collection in the RLQ.
[2025-09-09] MEDS: MIDAZOLAM HCL 2MG/2ML 2ml VIAL (1mg/ml) IV ONE ×2 (11:15→12:15)
[2025-09-09] MEDS: fentaNYL CITRATE 100 MCG/2 ML VL IV ONE ×2 (11:15→12:15)
[2025-09-09] MEDS: LIDOCAINE 2%HCL (LOCAL ANESTH.) INJ 10ml MDV ONE (13:01)
--- NOTE | 2025-09-09 13:57 | DVH ---
US US GUIDANCE FOR NEEDLE PLACEME, HISTORY: ABSCESS DRAINAGE PROCEDURE: An informed consent was obtained. The patient was placed supine on the interventional tabl e. IV sedation was administered. The suspicious fluid collection was localized with ultrasound and th e overlying skin prepped with chlorhexidine which was allowed to dry and draped in the usual sterile fashion. Time out was performed and infiltrated with 1% Xylocaine. With US guidance, an 8 Fr multipur pose drain was placed into the abscess using Trocar technique. Approximately 180 cc of thick foul p urulent fluid was aspirated. The drain was sutured at the skin surface and connected to suction drain age. No immediate complication was identified. SEDATION: Dr. Sebastian Riggs was personally responsible for the administration of moderate sedation during the procedure performed, including the use of an independent trained observer who had no other duties during the procedure. The drugs utilized were IV fentanyl and versed (see nursing log for details). The total time of supervision by the attending physician was approximately 30 minutes. FINDINGS: Limited US scan of through the abdominal wall demonstrates a fluid collection in the subcut aneous fat. Collection appears complex. Post procedure scan shows pigtail drain within the collection , which is decreased in size. IMPRESSION: US guided placement of 8 hungarian pigtail drain into a right lower quadrant abdominal wall abscess with 180 mL removed of foul purulent fluid. PLAN: Routine tube care. Send fluid to cytology for evaluation.
[2025-09-09] MEDS ORDERED: ONDANSETRON HCL 4 MG/2 ML VIAL IV PRN (15:15)
--- NOTE | 2025-09-09 15:21 | DVHPN2 ---
Progress Note Date Seen: Sep 09, 2025 Medical Necessity Reason Pt with a Central, PICC or Fol: No Subjective Patient reports: No new complaints Review of Systems: HEENT:Normal, CVS:Normal, RESPIRATORY:Normal, GI:Normal, :Normal, MSK:Normal, NEURO:Normal Objective vital signs Vital Sign Date Time Temp Pulse Resp B/P (MAP) Pulse Ox O2 Delivery O2 Flow Rate FiO2 09/09/25 11:08 99 Nasal Cannula 2.0 09/09/25 11:08 28 09/09/25 10:00 106 28 146/73 (97) 09/09/25 08:00 97.6 97.6 Total Intake and Output 09/08/25 09/08/25 09/09/25 15:00 23:00 07:00 Intake Total 425.000 ml 200 ml 400.000 ml Output Total 900 ml 400 ml Balance 425.000 ml -700 ml 0 ml medications Current Medications Medications Dose Ordered Sig/Nivia Route Start Time Stop Time Status Last Admin Dose Admin Vancomycin HCl 0 ml @ 0 mls/hr UD IV 09/08/25 00:00 Nitroglycerin 0.4 mg Q5MINP PRN SL 09/08/25 00:00 Morphine Sulfate 2 mg Q30M PRN IV 09/08/25 00:00 Hydromorphone HCl 0.5 mg Q6HPRN PRN IV 09/08/25 00:00 09/09/25 04:32 0.5 MG Albuterol 2.5 mg Q6HPRN PRN NEB 09/08/25 00:15 Ipratropium [place] 0.5 mg Q6HPRN PRN NEB 09/08/25 00:15 Piperacillin Sod/ Tazobactam Sod 100 ml @ 25 mls/hr Q6H IV 09/08/25 08:30 09/09/25 09:30 25 MLS/HR Vancomycin HCl 250 ml @ 166.667 mls/hr Q12H IV 09/08/25 12:00 09/09/25 00:48 166.667 MLS/HR Diagnostic Test (Pha) 1 strip Q6HR 09/08/25 18:00 09/09/25 12:01 1 STRIP Insulin Human Regular Q6HR SC 09/08/25 18:00 09/09/25 12:03 6 UNITS Dextrose 50 ml UD PRN IV 09/08/25 13:00 Clindamycin Phosphate 50 ml @ 50 mls/hr Q8HR IV 09/08/25 14:00 09/09/25 13:59 50 MLS/HR Pantoprazole Sodium 40 mg DAILY IV 09/09/25 10:00 09/09/25 09:29 40 MG Ondansetron HCl 4 mg Q6HP PRN IV 09/09/25 15:15 UNV Furosemide 20 mg DAILY IV 09/10/25 10:00 UNV Examination: GENERAL:Normal, HEENT:Normal, NECK:Normal, LUNGS:Normal, CVS:Normal, ABDOMEN:Normal, ABDOMEN:Abnormal (ABD WALL DRAIN- PURULENT), MSK:Normal, SKIN:Normal, NEURO:Normal, :Normal laboratory and microbiology Laboratory Tests 09/09/25 04:09 Test 09/09/25 04:09 Range/Units Serum Glucose 241 H 74-106 mg/dL Microbiology Date/Time Source Procedure Growth Status 09/08/25 10:59 Blood Blood Culture - Preliminary NO GROWTH AFTER 24 HOURS OF INCUBATION. Resulted Problem List/Assessment/Plan Problem List/Assessment/Plan #1 sepsis with ?necrotizing fascitis: s/p abd wall drain placed, iv antibiotics #2 dm: ssi #3 acute systolic/diastolic heart failure: echo, lasix iv #4 morbid obesity #5 h/o pe: doppler both legs- neg #6 copd #7 acute resp failure: cont oxygen #8 anemia #9 htn #10 ?aaa Plan discussed with: Patient, Spouse My Orders My Orders Orders - KEVIN NICKERSON MD Procedure Category Date Status Time Npo After Midnight [facility] 09/08/25 In Process 18:23 Full Liq Diet DIET 09/09/25 Transmitted Dinner Ondansetron Hcl PHA 09/09/25 Logged (Zofran) 15:15 Complete Blood Count LAB 09/10/25 Verified 06:00 Comprehensive LAB 09/10/25 Verified Metabolic Panel 06:00 Furosemide Injection PHA 09/09/25 Logged (Lasix Injection) 15:15 Furosemide Injection PHA 09/10/25 Logged (Lasix Injection) 10:00 Chest Portable XY 09/10/25 Verified 06:00 Dietary Evaluation Review Comments: Nutrition Recommendation 1) advance to [facility] [place] 75gm + 2gm Na diet as medically feasible 2) Refer Food Service Lead for diabetes education 3) Monitor PO intake, lab values, weight trend, and I/O Expected Outcomes/Goals: Intake to meet >75% estimated needs Lab values to improve Fu 2-3 days Critical Care Time (mins): 41 (critical care time 41 mins) Date of Service: Sep 09, 2025 Billing Provider: KEVIN NICKERSON MD Common Visit Codes: [id number] CARE 30-74 MIN KEVIN NICKERSON MD Sep 09, 2025 15:21
[2025-09-09] MEDS: FUROSEMIDE 20 MG/2 ML VIAL IV ONE (16:46)
[2025-09-10] VITALS (21 sets, daily range): BP systolic 124–170; BP diastolic 54–102; PULSE 98–112; RESP 15–28; TEMP 98.9–100.6; O2SAT 79–98
[2025-09-10 05:23] LABS: Hemoglobin 7.3 g/dL (13.5-17.5); Nucleated Red Blood Cells % 0.0 %
[2025-09-10 05:24] LABS: Hematocrit 24.9 % (41.0-53.0); Mean Corpuscular Hemoglobin 18.6 pg (28.0-32.0); Mean Corpuscular Volume 63.5 fL (80.0-100.0)
[2025-09-10 05:47] LABS: Alanine Aminotransferase 17 U/L (7-40); Albumin 2.9 g/dL (3.2-4.8); Alkaline Phosphatase 127 U/L (46-116); Anion Gap 9 (5-15); BUN/Creatinine Ratio 12.6 (10.0-20.0); Blood Urea Nitrogen 13 mg/dL (9-23); Calcium 7.9 mg/dL (8.7-10.4); Carbon Dioxide 27 mmol/L (20-31); Chloride 104 mmol/L (98-107); Glucose 232 mg/dL (74-106); Potassium 3.3 mmol/L (3.5-5.1); Sodium 140 mmol/L (136-145); Total Protein 5.9 g/dL (5.7-8.2)
[2025-09-10 05:48] LABS: Bilirubin, Total 0.2 mg/dL (0.2-1.0)
[2025-09-10] MEDS: POTASSIUM CHL 20 Meq TABLET PO ONE (07:00)
--- NOTE | 2025-09-10 08:45 | DVH ---
INDICATION: CHF TECHNIQUE: Frontal view of the chest. COMPARISON: XY CHEST PORTABLE on DOS: 09/09/25, XY CHEST PORTABLE on DOS: 09/07/25, XY CHEST PORTABLE on DOS: 01/31/23, CHEST PORTABLE on DOS: 07/04/22, CHEST PORTABLE on DOS: 12/03/21 FINDINGS: Cardiomegaly. There is no evidence of pleural disease. . The bony structures of the chest are intact without fracture. IMPRESSION: 1. Cardiomegaly with CHF
[2025-09-10] MEDS: ENOXAPARIN SOD 40 MG/0.4 ML SYRINGE SC SCH (09:17)
[2025-09-10] MEDS: FUROSEMIDE 20 MG/2 ML VIAL IV SCH (09:17)
--- NOTE | 2025-09-10 10:37 | DVH ---
CLINICAL HISTORY: RO STROKE TECHNIQUE: Helical scanning was performed of the head from the skull base to the vertex. Multiplanar reconstructions were performed. This exam was performed according to our departmental dose optimizat ion program. Up-to-date CT equipment and radiation dose reduction techniques are utilized as appropri ate. CTDI 71 DLP 1390 COMPARISON: None FINDINGS: There is no evidence for acute intracranial hemorrhage, acute ischemic changes, mass, mass effect, or extra-axial fluid collection. There is no hydrocephalus or midline shift. There is no effacement of the cerebral sulci and basal subarachnoid cisterns. The verdin-white matter differentiation is well cait ntained. There is mild brain volume loss and minimal chronic small vessel ischemic change. The imaged paranasal sinuses are clear. IMPRESSION: NO ACUTE INTRACRANIAL ABNORMALITY SEEN.
[2025-09-10 10:58] LABS: Base Excess 0.7 mmol/L (-2.0-3.0)
[2025-09-10] MEDS: VANCOMYCIN 1.5GM/250ML 250 ML IV SCH (12:06)
[2025-09-10] MEDS: MAGNESIUM SULFATE 1GM/100ML 100 ML IV ONE (12:22)
[2025-09-10] MEDS: POTASSIUM CHL 20MEQ/100ML 100 ML IV ONE (12:23)
--- NOTE | 2025-09-10 14:28 | DVHPNRES ---
Progress Note Date Seen: Sep 10, 2025 Resident Creating Document: DAILY VALDES RESIDENT Medical Necessity Reason Pt with a Central, PICC or Fol: No Subjective Review of Systems Patient is 75-year-old male who came to the evaluation of chief complaint of shortness of breath, requiring inhaler and nebulization at home, associated with right lower quadrant abdominal pain and associated chills. No any other new complaints. Past medical history: Hypertension, diabetes mellitus type 2, Chronic obstructive pulmonary disease, pulmonary embolism, AAA questionable Past surgical history none Allergy lisinopril Family history none 09/10/2025: Patient seen examined in [place]. Status post pigtail insertion over right lower quadrant. Draining well. Appropriate abdominal discomfort, generalized weak. No any other new complaint. On oxygen via nasal cannula. Objective vital signs Vital Sign Date Time Temp Pulse Resp B/P (MAP) Pulse Ox O2 Delivery O2 Flow Rate FiO2 09/10/25 12:00 98.9 109 28 143/60 (87) 92 98.9 09/10/25 10:00 Nasal Cannula* 2 28 Total Intake and Output 09/09/25 09/09/25 09/10/25 15:00 23:00 07:00 Intake Total 175.0 ml 690 ml 785 ml Output Total 520 ml 850 ml Balance 175.0 ml 170 ml -65 ml medications Current Medications Medications Dose Ordered Sig/Nivia Route Start Time Stop Time Status Last Admin Dose Admin Vancomycin HCl 0 ml @ 0 mls/hr UD IV 09/08/25 00:00 Nitroglycerin 0.4 mg Q5MINP PRN SL 09/08/25 00:00 Morphine Sulfate 2 mg Q30M PRN IV 09/08/25 00:00 Hydromorphone HCl 0.5 mg Q6HPRN PRN IV 09/08/25 00:00 09/10/25 06:31 0.5 MG Albuterol 2.5 mg Q6HPRN PRN NEB 09/08/25 00:15 Ipratropium [place] 0.5 mg Q6HPRN PRN NEB 09/08/25 00:15 Piperacillin Sod/ Tazobactam Sod 100 ml @ 25 mls/hr Q6H IV 09/08/25 08:30 09/10/25 08:30 25 MLS/HR Diagnostic Test (Pha) 1 strip Q6HR 09/08/25 18:00 09/10/25 12:00 1 STRIP Insulin Human Regular Q6HR SC 09/08/25 18:00 09/10/25 12:33 9 UNITS Dextrose 50 ml UD PRN IV 09/08/25 13:00 Clindamycin Phosphate 50 ml @ 50 mls/hr Q8HR IV 09/08/25 14:00 09/10/25 06:31 50 MLS/HR Pantoprazole Sodium 40 mg DAILY IV 09/09/25 10:00 09/10/25 09:16 40 MG Ondansetron HCl 4 mg Q6HP PRN IV 09/09/25 15:15 Furosemide 20 mg DAILY IV 09/10/25 10:00 09/10/25 09:17 20 MG Enoxaparin Sodium 40 mg DAILY SC 09/10/25 10:00 09/10/25 09:17 40 MG Vancomycin HCl 250 ml @ 166.667 mls/hr Q8H IV 09/10/25 12:00 09/10/25 12:06 166.667 MLS/HR Examination General Appearance: Not in acute distress Head Exam: Normal inspection Neck Exam: Normal inspection. Non-tender. Normal alignment Pulmonary/Respiratory: Chest non-tender. Clear bilateral breath sounds Cardiovascular/Chest: Regular rate and rhythm. No murmurs. No JVD. Peripheral Pulses: 2+ Radial (R). 2+ Radial (L). 2+ Pedal (R). 2+ Pedal (L) Abdominal Exam: Normal bowel sounds. Soft. Nontender. No hepatospenomegaly. No masses Ankle Exam: Negative ankle edema Lower extremities: Negative lower extremity edema Neuro/Mental Status: A&O x4. Coherent Thoughts/Psych: Normal thought pattern. Appropriate mood and affect. Good judgement and insight Appearance: In no acute distress Skin Exam: Normal inspection. Normal color. Warm. Dry laboratory and microbiology Laboratory Tests 09/10/25 05:02 Test 09/10/25 05:02 Range/Units Serum Glucose 232 H 74-106 mg/dL Microbiology Date/Time Source Procedure Growth Status 09/09/25 13:30 Aspirate Gram Stain - Final Resulted 09/09/25 13:30 Aspirate Body Fluid Culture - Preliminary Resulted 09/08/25 10:59 Blood Blood Culture - Preliminary NO GROWTH AFTER 48 HOURS OF INCUBATION. Resulted 09/08/25 08:15 Nose MRSA Screen - Final Complete Problem List/Assessment/Plan Problem List/Assessment/Plan Infection sepsis with ?necrotizing fascitis Abdominal wall abscess versus necrotizing fasciitis Lactic acidosis -IV antibiotic: Zosyn, vancomycin, clindamycin -blood culture: Negative so far -body fluid culture -status post pigtail insertion -MRSA negative -CT abdomen: 7.7 x 6.4 x 11.8 cm fluid collection at the right lower abdominal subcutaneous fat with involvement of the right lateral abdominal wall and cecum Respiratory acute resp failure: cont oxygen Chronic obstructive pulmonary disease -continue oxygen via nasal cannula, currently 2 L oxygen. -albuterol 2.5 mg nebulization q.6 PRN -IV Lasix 20 mg daily Cardiology acute systolic/diastolic heart failure htn h/o pe: doppler both legs- neg -IV Lasix 20 mg daily -echocardiogram pending results: Approximation of 51 ejection fraction -continue to monitor electrolytes: Potassium > 4, magnesium > 2. Endocrine Uncontrollable diabetes mellitus type 2 with HGB A1c 8% on 09/09/2025 Morbid obesity BMI 48.4 kg/m2 -moderate insulin sliding scale -diabetic and cardiac diet Hematology Microcytic Hypochromic Anemia Hypokalemia -hemoglobin 7.3 -repeat H and H -iron panel PUD prophylaxis:protonix DVT prophylaxis:lovenox Critical care time spent 60 minutes Plan discussed with Dr Osorio _ Impression: Acute hypoxic respiratory failure Dependence on supplemental oxygen Chronic obstructive pulmonary disease Sepsis with ?necrotizing fascitis Acute systolic/diastolic congestive heart failure Anemia Plan: Supplemental oxygen Titrate to keep O2 sats above 92%. Currently on 2 LPM NC Taper O2 as tolerated. Continue antibiotics Incentive spirometry S/p pigtail insertion over right lower quadrant. Draining well. Accu-Cheks, ISS. Monitor hemoglobin Transfuse if less than 7.0 g/dL. Diurese with Lasix as tolerated Monitor renal function. Monitor electrolytes. Supplement as necessary. Potassium, magnesium supplementation Monitor ins and outs. GI prophylaxis - Protonix DVT prophylaxis -Lovenox SC. Discussed with RN, Dr. Valdes. Prognosis: Guarded given patient's multiple co-morbidities. Rest of plan per hospitalist and other consultants. Thank you for allowing me to participate in this patient's care. Further recommendations will depend on the patient's clinical course. Please do not hesitate to contact me if you have any questions or concerns. This medical document was created using an electronic medical record system with [employer] dictation system. Although these documentations are being carefully reviewed, there may still be some phonetic and typographical changes. The errors are purely typographical, due to imperfection on the software program, and do not reflect any compromise in the patient's medical care. Plan discussed with: Patient, Other (RN) Dietary Evaluation Review Comments: Nutrition Recommendation 1) advance to [facility] 75gm + 2gm Na diet as medically feasible 2) Refer Outsole Rounder for diabetes education 3) Monitor PO intake, lab values, weight trend, and I/O Expected Outcomes/Goals: Intake to meet >75% estimated needs Lab values to improve Fu 2-3 days DAILY VALDES RESIDENT Sep 10, 2025 14:28 MARKIE OSORIO MD Sep 11, 2025 02:59
[2025-09-11] VITALS (33 sets, daily range): BP systolic 125–176; BP diastolic 42–70; PULSE 92–110; RESP 13–33; TEMP 97.7–100.9; O2SAT 88–100
[2025-09-11 08:01] LABS: Hematocrit 25.5 % (41.0-53.0); Hemoglobin 7.5 g/dL (13.5-17.5); Mean Corpuscular Hemoglobin 18.8 pg (28.0-32.0); Mean Corpuscular Volume 63.7 fL (80.0-100.0); Nucleated Red Blood Cells % 0.0 %
[2025-09-11 08:17] LABS: Anion Gap 12 (5-15); Carbon Dioxide 22 mmol/L (20-31); Chloride 102 mmol/L (98-107); Potassium 3.6 mmol/L (3.5-5.1)
[2025-09-11 08:23] LABS: BUN/Creatinine Ratio 6.7 (10.0-20.0); Blood Urea Nitrogen 9 mg/dL (9-23)
[2025-09-11 08:24] LABS: Magnesium 1.9 mg/dL (1.6-2.6)
[2025-09-11 08:28] LABS: Calcium 7.7 mg/dL (8.7-10.4); Glucose 275 mg/dL (74-106); Sodium 136 mmol/L (136-145)
[2025-09-11] MEDS: ACETAMINOPHEN 650 MG RECT SUPP PR PRN (10:55)
--- NOTE | 2025-09-11 11:14 | DVH ---
CHEST RADIOGRAPH Indication: desaturating Technique: XY CHEST PORTABLE COMPARISON: 01/31/2023 FINDINGS: The cardiac silhouette is enlarged. The lungs demonstrate bilateral patchy airspace opacities. The pu lmonary vasculature is prominent. Small bilateral pleural effusions. There is no pneumothorax. IMPRESSION: Cardiomegaly with pulmonary vascular congestion and bilateral patchy airspace opacities. Small bilateral pleural effusions
--- NOTE | 2025-09-11 17:54 | DVHPNRES ---
Progress Note Date Seen: Sep 11, 2025 Resident Creating Document: TIP JACOBS RESIDENT Medical Necessity Reason Pt with a Central, PICC or Fol: No Subjective Review of Systems Patient is 75-year-old male who came to the evaluation of chief complaint of shortness of breath, requiring inhaler and nebulization at home, associated with right lower quadrant abdominal pain and associated chills. No any other new complaints. Past medical history: Hypertension, diabetes mellitus type 2, Chronic obstructive pulmonary disease, pulmonary embolism, AAA questionable Past surgical history none Allergy lisinopril Family history none 09/10/2025: Patient seen examined in [place]. Status post pigtail insertion over right lower quadrant. Draining well. Appropriate abdominal discomfort, generalized weak. No any other new complaint. On oxygen via nasal cannula. 09/11/2025 : Patient seen at bedside, pigtail insertion over right lower quadrant, appropriate drainage seen, patient complained of right upper leg pain, was generalized week, patient had urinary retention for which Warner catheter was placed. Patient is on 3 L oxygen, started on liquid diet as patient passed swallow eval at bedside. Started on albuterol q.6. Ordered a urine culture. Patient had 1 bowel movement today. Objective vital signs Vital Sign Date Time Temp Pulse Resp B/P (MAP) Pulse Ox O2 Delivery O2 Flow Rate FiO2 09/11/25 17:01 99 16 155/54 (87) 96 09/11/25 16:01 98.1 98.1 09/11/25 10:46 2.0 28 09/11/25 10:00 Nasal Cannula Total Intake and Output 09/10/25 09/10/25 09/11/25 15:00 23:00 07:00 Intake Total 615.00 ml 575.000 ml Output Total 550 ml 530 ml Balance 65.00 ml 45.000 ml medications Current Medications Medications Dose Ordered Sig/Nivia Route Start Time Stop Time Status Last Admin Dose Admin Vancomycin HCl 0 ml @ 0 mls/hr UD IV 09/08/25 00:00 Nitroglycerin 0.4 mg Q5MINP PRN SL 09/08/25 00:00 Morphine Sulfate 2 mg Q30M PRN IV 09/08/25 00:00 Hydromorphone HCl 0.5 mg Q6HPRN PRN IV 09/08/25 00:00 09/11/25 08:04 0.5 MG Albuterol 2.5 mg Q6HPRN PRN NEB 09/08/25 00:15 Ipratropium [place] 0.5 mg Q6HPRN PRN NEB 09/08/25 00:15 Piperacillin Sod/ Tazobactam Sod 100 ml @ 25 mls/hr Q6H IV 09/08/25 08:30 09/11/25 14:30 25 MLS/HR Diagnostic Test (Pha) 1 strip Q6HR 09/08/25 18:00 09/11/25 16:39 1 STRIP Insulin Human Regular Q6HR SC 09/08/25 18:00 09/11/25 06:44 9 UNITS Dextrose 50 ml UD PRN IV 09/08/25 13:00 Clindamycin Phosphate 50 ml @ 50 mls/hr Q8HR IV 09/08/25 14:00 09/11/25 14:41 50 MLS/HR Pantoprazole Sodium 40 mg DAILY IV 09/09/25 10:00 09/11/25 10:01 40 MG Ondansetron HCl 4 mg Q6HP PRN IV 09/09/25 15:15 Furosemide 20 mg DAILY IV 09/10/25 10:00 09/11/25 10:02 20 MG Enoxaparin Sodium 40 mg DAILY SC 09/10/25 10:00 09/11/25 10:02 40 MG Acetaminophen 650 mg Q6HP PRN [place] 09/11/25 10:15 09/11/25 10:55 650 MG Albuterol 2.5 mg Q6HR NEB 09/11/25 18:00 Examination Patient lying in bed General: Patient alert and oriented in person, place and time. Patient following commands. HEENT: Normocephalic, atraumatic, moist mucous membranes Respiratory/pulmonary: Clear lungs bilaterally, vesicular murmurs present in almost all lung gautam, no associated crackles or wheezes. Cardiovascular: Normal heart sounds S1 and S2 with no associated murmurs Abdomen: Obese abdomen, pigtail drain with drainage present Extremities: There is bilateral pitting edema with discoloration Peripheral Pulses: 3+ Radial (R). 3+ Radial (L). 3+ Dorsalis pedis (R). 3+ Dorsalis pedis(L) Skin: No rashes or pruritus, there is no sacral edema present at this time. Neurological: Intact cranial nerves with no focal neurologic deficits laboratory and microbiology Laboratory Tests 09/11/25 06:29 Test 09/11/25 06:29 Range/Units Serum Glucose 275 H 74-106 mg/dL Microbiology Date/Time Source Procedure Growth Status 09/09/25 13:30 Aspirate Gram Stain - Final Resulted 09/09/25 13:30 Aspirate Body Fluid Culture - Preliminary Resulted 09/08/25 10:59 Blood Blood Culture - Preliminary NO GROWTH AFTER 72 HOURS OF INCUBATION. Resulted 09/08/25 08:15 Nose MRSA Screen - Final Complete Problem List/Assessment/Plan Problem List/Assessment/Plan Infection sepsis with ?necrotizing fascitis Abdominal wall abscess versus necrotizing fasciitis Lactic acidosis -IV antibiotic: Zosyn, vancomycin, clindamycin -blood culture: Negative so far -body fluid culture -status post pigtail insertion -MRSA negative -CT abdomen: 7.7 x 6.4 x 11.8 cm fluid collection at the right lower abdominal subcutaneous fat with involvement of the right lateral abdominal wall and cecum -urine culture ordered Respiratory acute resp failure: cont oxygen Chronic obstructive pulmonary disease -continue oxygen via nasal cannula, currently 3 L oxygen. -albuterol 2.5 mg nebulization q.6 -IV Lasix 20 mg daily Cardiology acute systolic/diastolic heart failure htn h/o pe: doppler both legs- neg -IV Lasix 20 mg daily -echocardiogram pending results: Approximation of 51 ejection fraction -continue to monitor electrolytes: Potassium > 4, magnesium > 2. Endocrine Uncontrollable diabetes mellitus type 2 with HGB A1c 8% on 09/09/2025 Morbid obesity BMI 48.4 kg/m2 -moderate insulin sliding scale -diabetic and cardiac diet Hematology Microcytic Hypochromic Anemia Hypokalemia -hemoglobin 7.3 -repeat H and H -iron panel PUD prophylaxis:protonix DVT prophylaxis:lovenox Diet: Started on liquid diet. Critical care time spent 60 minutes Plan discussed with Dr Osorio _ Impression: Acute hypoxic respiratory failure Dependence on supplemental oxygen Chronic obstructive pulmonary disease Sepsis with ?necrotizing fascitis Acute systolic/diastolic congestive heart failure Anemia Events: Currently on 3 LPM NC Taper O2 as tolerated. Patient with urinary retention. STAT Warner placement Altered mental status in AM. Possible aspiration. He was made NPO. Pt noted to have improved mentation on PM rounds. Plan: Supplemental oxygen Titrate to keep O2 sats above 92%. Continue antibiotics Incentive spirometry S/p pigtail insertion over right lower quadrant. Draining well. Accu-Cheks, ISS. Monitor hemoglobin Transfuse if less than 7.0 g/dL. Diurese with Lasix as tolerated Monitor renal function. Monitor electrolytes. Supplement as necessary. Monitor ins and outs. GI prophylaxis - Protonix DVT prophylaxis -Lovenox SC. Discussed with RN, Dr. Jacobs Prognosis: Guarded given patient's multiple co-morbidities. Condition: Critical Rest of plan per hospitalist and other consultants. A total of 35 minutes of critical care time was spent reviewing the patient record, examining the patient, making a diagnostic and therapeutic plan, discussing this plan with the medical personnel, following up on diagnostic studies and following the patient for clinical stability excluding any and all procedures. At least 50% of this time was spent in direct, [id number] contact. Thank you for allowing me to participate in this patient's care. Further recommendations will depend on the patient's clinical course. Please do not hesitate to contact me if you have any questions or concerns. This medical document was created using an electronic medical record system with [employer] dictation system. Although these documentations are being carefully reviewed, there may still be some phonetic and typographical changes. The errors are purely typographical, due to imperfection on the software program, and do not reflect any compromise in the patient's medical care. Plan discussed with: Patient, Spouse My Orders My Orders Orders - TIP JACOBS RESIDENT Procedure Category Date Status Time Chest Portable XY 09/11/25 Resulted 10:12 Acetaminophen PHA 09/11/25 In Process Suppository (Tylenol 10:15 * Swallow Request ST 09/11/25 Transmitted 10:12 Magnesium LAB 09/12/25 Verified 04:00 Phosphorus LAB 09/12/25 Verified 04:00 Comprehensive LAB 09/12/25 Verified Metabolic Panel 04:00 Chest Portable XY 09/12/25 Logged 04:00 Dietary Evaluation Review Comments: Nutrition Recommendation 1) advance to [facility] 75gm + 2gm Na diet as medically feasible 2) Refer Internet Systems Administrator for diabetes education 3) Monitor PO intake, lab values, weight trend, and I/O Expected Outcomes/Goals: Intake to meet >75% estimated needs Lab values to improve Fu 2-3 days TIP JACOBS RESIDENT Sep 11, 2025 17:54 MARKIE OSORIO MD Sep 11, 2025 21:53
[2025-09-11] MEDS: IPRATROPIUM BROM 0.5 MG/2.5ML INH SOL NEB PRN (18:59)
[2025-09-11] MEDS: ALBUTEROL SULF 2.5 MG/0.5ML(0.5%) NEB SOLN NEB SCH (18:59)
[2025-09-12] VITALS (31 sets, daily range): BP systolic 127–168; BP diastolic 40–73; PULSE 89–106; RESP 14–28; TEMP 97.6–98.4; O2SAT 84–99
[2025-09-12 06:16] LABS: Nucleated Red Blood Cells % 0.0 %
[2025-09-12 06:24] LABS: Hematocrit 25.3 % (41.0-53.0); Hemoglobin 7.5 g/dL (13.5-17.5); Mean Corpuscular Hemoglobin 18.8 pg (28.0-32.0); Mean Corpuscular Volume 63.6 fL (80.0-100.0)
[2025-09-12 06:54] LABS: Alanine Aminotransferase 13 U/L (7-40); Anion Gap 15 (5-15); BUN/Creatinine Ratio 6.2 (10.0-20.0); Blood Urea Nitrogen 15 mg/dL (9-23); Carbon Dioxide 23 mmol/L (20-31); Chloride 101 mmol/L (98-107); Magnesium 1.8 mg/dL (1.6-2.6); Sodium 139 mmol/L (136-145); Total Protein 6.4 g/dL (5.7-8.2)
[2025-09-12 06:55] LABS: Bilirubin, Total 0.4 mg/dL (0.2-1.0)
[2025-09-12 07:01] LABS: Albumin 3.0 g/dL (3.2-4.8); Alkaline Phosphatase 155 U/L (46-116); Calcium 7.9 mg/dL (8.7-10.4); Glucose 242 mg/dL (74-106); Potassium 3.2 mmol/L (3.5-5.1)
--- NOTE | 2025-09-12 07:22 | DVH ---
CHEST RADIOGRAPH Indication: pleural effusion Technique: Single frontal view of the chest was obtained Comparison: XY CHEST PORTABLE on DOS: 09/11/25 FINDINGS: Lines and Tubes: None Lungs: Bilateral pulmonary opacities. Pleura: No effusion. No pneumothorax. Cardiomediastinal contours: Cardiomegaly. Bones: No acute osseous abnormality. IMPRESSION: 1. Cardiomegaly. 2. Bilateral pulmonary opacities which may reflect pulmonary congestion.
[2025-09-12] MEDS: POTASSIUM EFFERVESENT TAB 25 MEQ PO ONE (09:45)
[2025-09-12] MEDS: HEPARIN SODIUM (PORCINE) 5000 UNITS/ML 1ML VIAL SC SCH (10:39)
[2025-09-12 10:56] LABS: Protein, Urine 100.3 mg/dL (1-14)
[2025-09-12] MEDS ORDERED: DEXTROSE (50%) 50ML SYRG IV PRN (13:30)
--- NOTE | 2025-09-12 13:38 | DVHPNRES ---
Progress Note Date Seen: Sep 12, 2025 Resident Creating Document: DAILY VALDES RESIDENT Medical Necessity Reason Pt with a Central, PICC or Fol: No Subjective Review of Systems Patient is 75-year-old male who came to the evaluation of chief complaint of shortness of breath, requiring inhaler and nebulization at home, associated with right lower quadrant abdominal pain and associated chills. No any other new complaints. Past medical history: Hypertension, diabetes mellitus type 2, Chronic obstructive pulmonary disease, pulmonary embolism, AAA questionable Past surgical history none Allergy lisinopril Family history none 09/10/2025: Patient seen examined in [facility]. Status post pigtail insertion over right lower quadrant. Draining well. Appropriate abdominal discomfort, generalized weak. No any other new complaint. On oxygen via nasal cannula. 09/12/2025: patient seen in [facility]. On 2 oxygen via NC. pig tail draining well. no night events, Has fe blisters over abdominal skill folds. Objective vital signs Vital Sign Date Time Temp Pulse Resp B/P (MAP) Pulse Ox O2 Delivery O2 Flow Rate FiO2 09/12/25 12:00 100 09/12/25 12:00 97.9 24 140/65 (90) 96 97.9 09/12/25 10:55 Nasal Cannula* 2 28 Total Intake and Output 09/11/25 09/11/25 09/12/25 15:00 23:00 07:00 Intake Total 100 ml 395 ml 350 ml Output Total 765 ml 400 ml Balance 100 ml -370 ml -50 ml medications Current Medications Medications Dose Ordered Sig/Nivia Route Start Time Stop Time Status Last Admin Dose Admin Vancomycin HCl 0 ml @ 0 mls/hr UD IV 09/08/25 00:00 Nitroglycerin 0.4 mg Q5MINP PRN SL 09/08/25 00:00 Morphine Sulfate 2 mg Q30M PRN IV 09/08/25 00:00 Hydromorphone HCl 0.5 mg Q6HPRN PRN IV 09/08/25 00:00 09/12/25 06:26 0.5 MG Albuterol 2.5 mg Q6HPRN PRN NEB 09/08/25 00:15 Ipratropium [place] 0.5 mg Q6HPRN PRN NEB 09/08/25 00:15 09/12/25 10:55 0.5 MG Diagnostic Test (Pha) 1 strip Q6HR 09/08/25 18:00 09/12/25 12:05 1 STRIP Insulin Human Regular Q6HR SC 09/08/25 18:00 09/12/25 12:39 6 UNITS Dextrose 50 ml UD PRN IV 09/08/25 13:00 Clindamycin Phosphate 50 ml @ 50 mls/hr Q8HR IV 09/08/25 14:00 09/12/25 05:59 50 MLS/HR Pantoprazole Sodium 40 mg DAILY IV 09/09/25 10:00 09/12/25 10:36 40 MG Ondansetron HCl 4 mg Q6HP PRN IV 09/09/25 15:15 Furosemide 20 mg DAILY IV 09/10/25 10:00 09/12/25 10:36 20 MG Acetaminophen 650 mg Q6HP PRN [place] 09/11/25 10:15 09/11/25 10:55 650 MG Albuterol 2.5 mg Q6HR NEB 09/11/25 18:00 09/12/25 10:55 2.5 MG Heparin Sodium (Porcine) 5,000 units Q12HR SC 09/12/25 10:00 09/12/25 10:39 5,000 UNITS Piperacillin Sod/ Tazobactam Sod 100 ml @ 25 mls/hr Q8H IV 09/12/25 17:00 Examination General Appearance: Not in acute distress Head Exam: Normal inspection Neck Exam: Normal inspection. Non-tender. Normal alignment Pulmonary/Respiratory: Chest non-tender. Clear bilateral breath sounds Cardiovascular/Chest: Regular rate and rhythm. No murmurs. No JVD. Peripheral Pulses: 2+ Radial (R). 2+ Radial (L). 2+ Pedal (R). 2+ Pedal (L) Abdominal Exam: Normal bowel sounds. Soft. Nontender. No hepatospenomegaly. No masses, pigtail over right lover quadrant, erythema and tenderness over right lower quadrant. blisters over skin folds Ankle Exam: Negative ankle edema Lower extremities: Negative lower extremity edema Neuro/Mental Status: A&O x4. Coherent Thoughts/Psych: Normal thought pattern. Appropriate mood and affect. Good judgement and insight laboratory and microbiology Laboratory Tests 09/12/25 05:17 Test 09/12/25 05:17 Range/Units Serum Glucose 242 H 74-106 mg/dL Microbiology Date/Time Source Procedure Growth Status 09/11/25 12:30 Urine - [place] Urine Culture - Preliminary Resulted 09/09/25 13:30 Aspirate Gram Stain - Final Resulted 09/09/25 13:30 Aspirate Body Fluid Culture - Preliminary Resulted 09/08/25 10:59 Blood Blood Culture - Preliminary NO GROWTH AFTER 72 HOURS OF INCUBATION. Resulted 09/08/25 08:15 Nose MRSA Screen - Final Complete Problem List/Assessment/Plan Problem List/Assessment/Plan Infection sepsis with ?necrotizing fascitis Abdominal wall abscess versus necrotizing fasciitis Lactic acidosis -IV antibiotic: Zosyn, vancomycin, clindamycin -blood culture: Negative -body fluid culture: gram negative rods -status post pigtail insertion -MRSA negative -CT abdomen: 7.7 x 6.4 x 11.8 cm fluid collection at the right lower abdominal subcutaneous fat with involvement of the right lateral abdominal wall and cecum Respiratory acute resp failure: cont oxygen Chronic obstructive pulmonary disease Currently at 2L o2 via NC -continue oxygen via nasal cannula, currently 2 L oxygen. -albuterol 2.5 mg nebulization q.6 PRN -IV Lasix 20 mg daily Cardiology acute systolic/diastolic heart failure htn h/o pe: doppler both legs- neg -IV Lasix 20 mg daily -echocardiogram pending results: Approximation of 51 ejection fraction, pending results -continue to monitor electrolytes: Potassium > 4, magnesium > 2. Nephrology DAVY due to VMN -1.34, 2.41 -Stop lasix 20 IV. -Urine electrolytes: Fena: 0.35 likely prerenal -BMP in am -Avoid nephrotoxic drugs Hypokalemia Hypomagnesemia -Replenish Endocrine Uncontrollable diabetes mellitus type 2 with HGB A1c 8% on 09/09/2025 Morbid obesity BMI 48.4 kg/m2 -Severe insulin sliding scale -diabetic and cardiac diet Hematology Microcytic Hypochromic Anemia Hypokalemia -hemoglobin 7.3 -repeat H and H -iron panel PUD prophylaxis:protonix DVT prophylaxis:Heparin Informed all clinical details to Sandhya. Critical care time spent 50 minutes Plan discussed with Dr Osorio _ Impression: Acute hypoxic respiratory failure Dependence on supplemental oxygen Chronic obstructive pulmonary disease Sepsis with ?necrotizing fascitis Acute systolic/diastolic congestive heart failure Anemia Events: Low oxygen requirements Remains on 2 LPM NC Taper O2 as tolerated. Continue antibiotics WBC of 20.4 K Incentive spirometry Wound consult Monitor hemoglobin - currently 7.5 g/dL Transfuse if less than 7.0 g/dL. Stop Lasix. IV fluid supplementation Nephrology recs appreciated. Monitor renal function Monitor ins and outs. Strict ins and outs. Warner in place for urinary retention. Altered mental status in AM yesterday. Possible aspiration. He was made NPO. Improved mentation. Of note, he did have a coughing/choking episode today while taking tablets Discussed with Dr. Barbara Gonzáles Plan: Supplemental oxygen Titrate to keep O2 sats above 92%. Continue antibiotics Incentive spirometry Monitor WBC S/p pigtail insertion over right lower quadrant. Draining well. Accu-Cheks, ISS. Monitor hemoglobin due to anemia Transfuse if less than 7.0 g/dL. Follow up Nephrology recommendations Monitor renal function. Monitor electrolytes. Supplement as necessary. Monitor ins and outs. GI prophylaxis - Protonix DVT prophylaxis -Lovenox SC. Prognosis: Guarded given patient's multiple co-morbidities. Rest of plan per hospitalist and other consultants. Thank you for allowing me to participate in this patient's care. Further recommendations will depend on the patient's clinical course. Please do not hesitate to contact me if you have any questions or concerns. This medical document was created using an electronic medical record system with eflow dictation system. Although these documentations are being carefully reviewed, there may still be some phonetic and typographical changes. The errors are purely typographical, due to imperfection on the software program, and do not reflect any compromise in the patient's medical care. Plan discussed with: Patient, Spouse, Other My Orders My Orders Orders - DAILY VALDES Procedure Category Date Status Time Heparin Sodium PHA 09/12/25 In Process (Porcine) 10:00 *Dr. [facility] CONS 09/12/25 Transmitted -[place] 08:14 Dietary Evaluation Review Comments: Nutrition Recommendation 1) advance to [facility] 75gm + 2gm Na diet as medically feasible 2) Refer Field Education Director for diabetes education 3) Monitor PO intake, lab values, weight trend, and I/O Expected Outcomes/Goals: Intake to meet >75% estimated needs Lab values to improve Fu 2-3 days DAILY VALDES Sep 12, 2025 13:38 MARKIE OSORIO MD Sep 13, 2025 04:00
--- NOTE | 2025-09-12 14:07 | DVHINCON2 ---
Date of service: Sep 12, 2025 Reason for Consultation DAVY History of Present Illness 75 years old male with past medical history of morbid obesity, COPD, diabetes, hypertension, pulmonary embolism presented with chief complaints of shortness of breath and right lower quadrant abdominal pain and associated chills on September 07 , she underwent ultrasound guided pigtail drain into right lower quadrant abdominal wall with 180 mL of pus drained from the abscess he was being treated with IV antibiotics with vancomycin, clindamycin, Zosyn He also have chronic hypoxic respiratory failure since he goes 2-3 L home oxygen ever since he got COVID Past Medical History As per HPI Allergies: Coded Allergies: Lisinopril (Verified Allergy, Unknown, 09/10/25) Home Meds Active Scripts Insulin Glargine (Lantus) 100 Unit/Ml Inj, 25 UNIT SC HS for 30 Days, #30 INJ Prov:RICKIE CARBAJAL MD 12/05/21 Doxycycline Hyclate (DOXYCYCLINE HYCLATE) 100 Mg Tab, 1 TAB PO BID for 5 Days, #10 TAB Prov:RICKIE CARBAJAL MD 12/05/21 Dexamethasone (Decadron) 4 Mg Tb, 1 TAB PO DAILY for 7 Days, #7 TAB Prov:RICKIE CARBAJAL MD 12/05/21 Albuterol Sulfate (VENTOLIN MDI) 90 Mcg Ih, 90 MCG IN Q6HP PRN for 30 Days, #1 INH Prov:RICKIE CARBAJAL MD 12/05/21 Ascorbic Acid (Gnp Vitamin C W/Isabelle Hips) 1,000 Mg Tab, 1000 MG PO DAILY for 30 Days, #30 TAB Prov:RICKIE CARBAJAL MD 12/05/21 Cholecalciferol (VITAMIN D3) 5,000 Unit Tab, 5000 UNIT PO DAILY for 30 Days, #30 TAB Prov:RICKIE CARBAJAL MD 12/05/21 Zinc Sulfate (Zinc Sulfate) 220 Mg Tab, 220 MG PO DAILY for 14 Days, #14 TAB Prov:RICKIE CARBAJAL MD 12/05/21 Reported Medications Albuterol Sulfate (Albuterol Sulfate Hfa) 108 Mcg/Act Aer, 90 MCG IN, AER 11/29/21 Hydrochlorothiazide (Hydrochlorothiazide) 25 Mg Tab, 75 MG PO DAILY 11/29/21 Ciclesonide (Alvesco) 160 Mcg/Act Aer, 160 MCG IN 11/29/21 Azelastine Hcl (Azelastine Hcl) 0.1 % Spr, 0.1 % NA, SPRAY 11/29/21 Budesonide (Inhalation) (Budesonide) 1 Mg/2 Ml Shira, 1 MG IN 11/29/21 Omeprazole (Gnp Omeprazole) 20 Mg Tab, 20 MG PO BID 11/29/21 Montelukast Sodium (Singulair) 4 Mg Gra, 10 MG PO DAILY 11/29/21 Losartan Potassium (Losartan Potassium) 50 Mg Tab, 50 MG PO DAILY 11/29/21 Atorvastatin Calcium (Lipitor) 40 Mg Tab, 40 MG PO DAILY 11/29/21 Dabigatran Etexilate Mesylate (Pradaxa) 150 Mg Cap, 150 MG PO BID 11/29/21 Atorvastatin Calcium (Lipitor) 40 Mg Tab, 1 TAB PO DAILY, 5 Refills 11/29/21 Metformin HCl (Metformin Hydrochloride) 1,000 Mg Tab, 1000 MG PO BID, TAB 11/29/21 Current Medications Current Medications Medications (Trade) Dose Ordered Sig/Nivia Route PRN Reason Start Time Stop Time Status Last Admin Albuterol (Ventolin Medneb) 2.5 mg Q6HR NEB 09/11/25 18:00 09/12/25 10:55 Heparin Sodium (Porcine) 5,000 units Q12HR SC 09/12/25 10:00 09/12/25 10:39 Piperacillin Sod/ Tazobactam Sod 100 ml @ 25 mls/hr Q8H IV 09/12/25 17:00 Diagnostic Test (Pha) (Accu-Chek Comfort Curve T) 1 strip Q6HR 09/12/25 18:00 Insulin Human Regular (InsuLIN R) Q6HR SC 09/12/25 18:00 Dextrose 50 ml UD PRN IV Blood Sugar LESS THAN 60 09/12/25 13:30 Family History: FH: CHF (congestive heart failure) G8 FATHER, Onset:Unknown FH: breast cancer G8 SISTER Hypertension G8 MOTHER Review of Systems As documented in HPI H&P Exam Vital Signs/I&O Vital Sign Date Time Temp Pulse Resp B/P (MAP) Pulse Ox O2 Delivery O2 Flow Rate FiO2 09/12/25 13:34 96 16 141/61 09/12/25 12:00 97.9 96 97.9 09/12/25 10:55 Nasal Cannula* 2 28 Intake and Output 09/11/25 09/12/25 19:00 07:00 Intake Total 370 ml 475 ml Output Total 765 ml 400 ml Balance -395 ml 75 ml Intake Oral 120 ml 150 ml IV Total 250 ml 325 ml Output Urine Total 575 ml 350 ml Drainage Total 190 ml 50 ml # Bowel Movements 1 1 Physical Exam General-not in any distress HEENT-normocephalic, no icterus, no pallor, neck supple Respiratory-fair air entry bilateral, no rhonchi, no wheeze [id number] heard, no murmurs appreciated Abdominal-soft, nontender, nondistended,, catheter Musculoskeletal-positive edema Genitourinary-deferred Neuro-awake alert oriented x3, Psychiatric-not agitated, cooperative, Labs/Diagnostic Data Labs/Diagnostic Data Laboratory Tests Test 09/12/25 09:45 09/12/25 06:06 09/12/25 05:17 09/12/25 00:14 Range/Units Urine Creatinine 99.33 30.0-125.0 mg/dL Urine Protein/Creatinine Ratio 1.01 Urine Sodium 15 L 40-220 mmol/L Urine Total Protein 100.3 H 1-14 mg/dL POC Glucose 245 H 231 H 70-106 mg/dl White Blood Count 20.4 H 4.4-10.8 10^3/uL Red Blood Count 3.97 L 4.5-5.90 10^6/uL Hemoglobin 7.5 L 13.5-17.5 g/dL Hematocrit 25.3 L 41.0-53.0 % Mean Corpuscular Volume 63.6 L 80.0-100.0 fL Mean Corpuscular Hemoglobin 18.8 L 28.0-32.0 pg Mean Corpuscular Hemoglobin Concent 29.6 L 32.0-36.0 g/dL Red Cell Distribution Width 20.8 H 11.8-14.3 % Platelet Count 430 140-450 10^3/uL Mean Platelet Volume 6.9 6.9-10.8 fL Neutrophils (%) (Auto) 85.3 H 37.0-80.0 % Lymphocytes (%) (Auto) 7.9 L 10.0-50.0 % Monocytes (%) (Auto) 5.8 0.0-12.0 % Eosinophils (%) (Auto) 0.7 0.0-7.0 % Basophils (%) (Auto) 0.3 0.0-2.0 % Neutrophils # (Auto) 17.4 H 1.6-8.6 10 ^3/uL Lymphocytes # (Auto) 1.6 0.4-5.4 10 ^3/uL Monocytes # (Auto) 1.2 0-1.3 10 ^3/uL Eosinophils # (Auto) 0.1 0-0.8 10 ^3/uL Basophils # (Auto) 0.1 0-0.2 10 ^3/uL Nucleated Red Blood Cells 0.0 % Sodium Level 139 136-145 mmol/L Potassium Level 3.2 L 3.5-5.1 mmol/L Chloride Level 101 98-107 mmol/L Carbon Dioxide Level 23 20-31 mmol/L Anion Gap 15 5-15 Blood Urea Nitrogen 15 9-23 mg/dL Creatinine 2.41 H 0.700-1.30 mg/dL Glomerular Filtration Rate Calc 27 >90 mL/min BUN/Creatinine Ratio 6.2 L 10.0-20.0 Serum Glucose 242 H 74-106 mg/dL Calcium Level 7.9 L 8.7-10.4 mg/dL Phosphorus Level 3.7 2.4-5.1 mg/dL Magnesium Level 1.8 1.6-2.6 mg/dL Total Bilirubin 0.4 0.2-1.0 mg/dL Aspartate Amino Transferase (AST) 23 13-40 U/L Alanine Aminotransferase (ALT) 13 7-40 U/L Alkaline Phosphatase 155 H 46-116 U/L Total Protein 6.4 5.7-8.2 g/dL Albumin 3.0 L 3.2-4.8 g/dL Random Vancomycin Level 24.7 H 5-10 ug/mL Test 09/11/25 17:23 09/11/25 14:43 09/11/25 12:06 09/11/25 11:28 Range/Units POC Glucose 263 H 266 H 247 H 70-106 mg/dl Vancomycin Level Trough 33.3 *H 5-10 ug/mL Test 09/11/25 06:29 09/11/25 06:09 09/11/25 00:16 09/10/25 17:40 Range/Units White Blood Count 19.4 H 4.4-10.8 10^3/uL Red Blood Count 4.00 L 4.5-5.90 10^6/uL Hemoglobin 7.5 L 13.5-17.5 g/dL Hematocrit 25.5 L 41.0-53.0 % Mean Corpuscular Volume 63.7 L 80.0-100.0 fL Mean Corpuscular Hemoglobin 18.8 L 28.0-32.0 pg Mean Corpuscular Hemoglobin Concent 29.4 L 32.0-36.0 g/dL Red Cell Distribution Width 21.1 H 11.8-14.3 % Platelet Count 408 140-450 10^3/uL Mean Platelet Volume 6.9 6.9-10.8 fL Neutrophils (%) (Auto) 85.8 H 37.0-80.0 % Lymphocytes (%) (Auto) 8.6 L 10.0-50.0 % Monocytes (%) (Auto) 4.9 0.0-12.0 % Eosinophils (%) (Auto) 0.4 0.0-7.0 % Basophils (%) (Auto) 0.3 0.0-2.0 % Neutrophils # (Auto) 16.6 H 1.6-8.6 10 ^3/uL Lymphocytes # (Auto) 1.7 0.4-5.4 10 ^3/uL Monocytes # (Auto) 1.0 0-1.3 10 ^3/uL Eosinophils # (Auto) 0.1 0-0.8 10 ^3/uL Basophils # (Auto) 0.1 0-0.2 10 ^3/uL Nucleated Red Blood Cells 0.0 % Sodium Level 136 136-145 mmol/L Potassium Level 3.6 3.5-5.1 mmol/L Chloride Level 102 98-107 mmol/L Carbon Dioxide Level 22 20-31 mmol/L Anion Gap 12 5-15 Blood Urea Nitrogen 9 9-23 mg/dL Creatinine 1.34 H 0.700-1.30 mg/dL Glomerular Filtration Rate Calc 56 >90 mL/min BUN/Creatinine Ratio 6.7 L 10.0-20.0 Serum Glucose 275 H 74-106 mg/dL Calcium Level 7.7 L 8.7-10.4 mg/dL Magnesium Level 1.9 1.6-2.6 mg/dL POC Glucose 296 H 318 H 276 H 70-106 mg/dl Test 09/10/25 12:27 09/10/25 10:50 09/10/25 06:15 09/10/25 05:02 Range/Units POC Glucose 278 H 219 H 70-106 mg/dl Blood Gas Specimen Type Arterial Blood Gas Sample Site Right brachial Blood Gas Patient Temperature 37.0 Arterial Blood Date Drawn [id number] Arterial Blood pH 7.484 H 7.350-7.450 Arterial Blood Partial Pressure CO2 32.5 L 35.0-48.0 mmHg Arterial Blood Partial Pressure O2 64.2 L 83.0-108.0 mmHg Arterial Blood HCO3 23.9 21.0-28.0 mmol/L Arterial Blood Oxygen Saturation 91.1 L 94.0-98.0 % Arterial Blood Base Excess 0.7 -2.0-3.0 mmol/L Arterial Blood Oxyhemoglobin 89.6 L 94.0-98.0 % Arterial Blood Carboxyhemoglobin 1.4 0.5-1.5 % Arterial Blood Methemoglobin 0.2 0.0-1.5 % Errol Test N/a Blood Gas Total Hemoglobin 8.50 L 13.5-17.5 g/dL Blood Gas Liter Flow 1.00 Blood Gas Modality Nasal cannula FiO2 % 24.0 White Blood Count 20.3 H 4.4-10.8 10^3/uL Red Blood Count 3.92 L 4.5-5.90 10^6/uL Hemoglobin 7.3 #L 13.5-17.5 g/dL Hematocrit 24.9 #L 41.0-53.0 % Mean Corpuscular Volume 63.5 L 80.0-100.0 fL Mean Corpuscular Hemoglobin 18.6 L 28.0-32.0 pg Mean Corpuscular Hemoglobin Concent 29.3 L 32.0-36.0 g/dL Red Cell Distribution Width 21.0 H 11.8-14.3 % Platelet Count 423 140-450 10^3/uL Mean Platelet Volume 6.4 L 6.9-10.8 fL Neutrophils (%) (Auto) 85.0 H 37.0-80.0 % Lymphocytes (%) (Auto) 9.4 L 10.0-50.0 % Monocytes (%) (Auto) 4.9 0.0-12.0 % Eosinophils (%) (Auto) 0.6 0.0-7.0 % Basophils (%) (Auto) 0.1 0.0-2.0 % Neutrophils # (Auto) 17.2 H 1.6-8.6 10 ^3/uL Lymphocytes # (Auto) 1.9 0.4-5.4 10 ^3/uL Monocytes # (Auto) 1.0 0-1.3 10 ^3/uL Eosinophils # (Auto) 0.1 0-0.8 10 ^3/uL Basophils # (Auto) 0 0-0.2 10 ^3/uL Nucleated Red Blood Cells 0.0 % Sodium Level 140 136-145 mmol/L Potassium Level 3.3 L 3.5-5.1 mmol/L Chloride Level 104 98-107 mmol/L Carbon Dioxide Level 27 20-31 mmol/L Anion Gap 9 5-15 Blood Urea Nitrogen 13 9-23 mg/dL Creatinine 1.03 0.700-1.30 mg/dL Glomerular Filtration Rate Calc 76 >90 mL/min BUN/Creatinine Ratio 12.6 10.0-20.0 Serum Glucose 232 H 74-106 mg/dL Calcium Level 7.9 L 8.7-10.4 mg/dL Magnesium Level 1.6 1.6-2.6 mg/dL Total Bilirubin 0.2 0.2-1.0 mg/dL Aspartate Amino Transferase (AST) 22 13-40 U/L Alanine Aminotransferase (ALT) 17 7-40 U/L Alkaline Phosphatase 127 H 46-116 U/L Total Protein 5.9 5.7-8.2 g/dL Albumin 2.9 L 3.2-4.8 g/dL Test 09/10/25 00:00 09/09/25 22:59 09/09/25 17:55 09/09/25 13:30 Range/Units POC Glucose 260 H 232 H 70-106 mg/dl Vancomycin Level Trough 8.6 5-10 ug/mL Test 09/09/25 11:56 09/09/25 05:35 09/09/25 04:09 09/08/25 23:37 Range/Units POC Glucose 232 H 286 H 289 H 70-106 mg/dl White Blood Count 25.0 H 4.4-10.8 10^3/uL Red Blood Count 4.84 4.5-5.90 10^6/uL Hemoglobin 8.9 L 13.5-17.5 g/dL Hematocrit 31.3 #L 41.0-53.0 % Mean Corpuscular Volume 64.6 L 80.0-100.0 fL Mean Corpuscular Hemoglobin 18.4 L 28.0-32.0 pg Mean Corpuscular Hemoglobin Concent 28.4 L 32.0-36.0 g/dL Red Cell Distribution Width 21.0 H 11.8-14.3 % Platelet Count 506 H 140-450 10^3/uL Mean Platelet Volume 6.8 L 6.9-10.8 fL Neutrophils (%) (Auto) 87.9 H 37.0-80.0 % Lymphocytes (%) (Auto) 7.6 L 10.0-50.0 % Monocytes (%) (Auto) 4.2 0.0-12.0 % Eosinophils (%) (Auto) 0.2 0.0-7.0 % Basophils (%) (Auto) 0.1 0.0-2.0 % Neutrophils # (Auto) 22.0 H 1.6-8.6 10 ^3/uL Lymphocytes # (Auto) 1.9 0.4-5.4 10 ^3/uL Monocytes # (Auto) 1.0 0-1.3 10 ^3/uL Eosinophils # (Auto) 0.1 0-0.8 10 ^3/uL Basophils # (Auto) 0 0-0.2 10 ^3/uL Nucleated Red Blood Cells 0.0 % Prothrombin Time 12.2 H 9.3-11.8 sec Prothrombin Time INR 1.17 H 0.9-1.15 Activated Partial Thromboplast Time 26.6 24.5-34.5 SEC Sodium Level 140 136-145 mmol/L Potassium Level 3.5 3.5-5.1 mmol/L Chloride Level 104 98-107 mmol/L Carbon Dioxide Level 25 20-31 mmol/L Anion Gap 11 5-15 Blood Urea Nitrogen 13 9-23 mg/dL Creatinine 0.83 0.700-1.30 mg/dL Glomerular Filtration Rate Calc 92 >90 mL/min BUN/Creatinine Ratio 15.7 10.0-20.0 Serum Glucose 241 H 74-106 mg/dL Hemoglobin A1c 8.0 H <5.7 % A1C Calcium Level 8.3 L 8.7-10.4 mg/dL Total Bilirubin 0.4 0.2-1.0 mg/dL Aspartate Amino Transferase (AST) 24 13-40 U/L Alanine Aminotransferase (ALT) 24 7-40 U/L Alkaline Phosphatase 141 H 46-116 U/L Total Protein 7.0 5.7-8.2 g/dL Albumin 3.5 3.2-4.8 g/dL Test 09/08/25 18:05 09/08/25 11:57 09/08/25 08:39 09/08/25 06:29 Range/Units POC Glucose 245 H 229 H 279 H 70-106 mg/dl White Blood Count 27.7 H 4.4-10.8 10^3/uL Red Blood Count 4.22 L 4.5-5.90 10^6/uL Hemoglobin 7.8 L 13.5-17.5 g/dL Hematocrit 26.7 #L 41.0-53.0 % Mean Corpuscular Volume 63.3 L 80.0-100.0 fL Mean Corpuscular Hemoglobin 18.4 L 28.0-32.0 pg Mean Corpuscular Hemoglobin Concent 29.1 L 32.0-36.0 g/dL Red Cell Distribution Width 21.0 H 11.8-14.3 % Platelet Count 459 H 140-450 10^3/uL Mean Platelet Volume 6.5 L 6.9-10.8 fL Neutrophils (%) (Auto) 37.0-80.0 % Lymphocytes (%) (Auto) 10.0-50.0 % Monocytes (%) (Auto) 0.0-12.0 % Basophils (%) (Auto) 0.0-2.0 % Neutrophils # (Auto) 1.6-8.6 10 ^3/uL Lymphocytes # (Auto) 0.4-5.4 10 ^3/uL Monocytes # (Auto) 0-1.3 10 ^3/uL Differential Total Cells Counted 100.0 100 Neutrophils % (Manual) 87 H 37.0-80.0 Band Neutrophils % (Manual) 3 Lymphocytes % (Manual) 5 L 10.0-50.0 Monocytes % (Manual) 5 0-12 Eosinophils % (Manual) 0 0-7 Basophils % (Manual) 0 0.0-2.0 Metamyelocytes % (manual) 0 Myelocytes % (Manual) 0 Promyelocytes % (Manual) 0 Blast Cells % (Manual) 0 Reactive Lymphocytes 0 Platelet Estimate Increased Large Platelets Few Hypochromasia (manual) Marked Microcytosis Marked Stomatocytes Few Schistocytes Few Sodium Level 140 136-145 mmol/L Potassium Level 3.8 3.5-5.1 mmol/L Chloride Level 104 98-107 mmol/L Carbon Dioxide Level 25 20-31 mmol/L Anion Gap 11 5-15 Blood Urea Nitrogen 13 9-23 mg/dL Creatinine 0.90 0.700-1.30 mg/dL Glomerular Filtration Rate Calc 90 >90 mL/min BUN/Creatinine Ratio 14.4 10.0-20.0 Serum Glucose 255 H 74-106 mg/dL Calcium Level 7.8 L 8.7-10.4 mg/dL Total Bilirubin 0.4 0.2-1.0 mg/dL Aspartate Amino Transferase (AST) 21 13-40 U/L Alanine Aminotransferase (ALT) 23 7-40 U/L Alkaline Phosphatase 123 H 46-116 U/L Total Protein 6.2 5.7-8.2 g/dL Albumin 3.1 L 3.2-4.8 g/dL Test 09/08/25 03:30 09/08/25 01:42 09/07/25 22:08 09/07/25 21:09 Range/Units POC Glucose 280 H 300 H 70-106 mg/dl Troponin I High Sensitivity 4 </=54 ng/L Lactic Acid Level 4.1 *H 0.4-2.0 mmol/L Test 09/07/25 20:52 09/07/25 19:49 09/07/25 18:57 Range/Units Urine Color Yellow Yellow Urine Clarity Clear Clear Urine pH 6.0 5.0-9.0 Urine Specific [place] 1.015 1.001-1.035 Urine Protein Trace H Negative Urine Ketones Negative Negative Urine Blood Negative Negative /uL Urine Nitrite Negative Negative Urine Bilirubin Negative Negative Urine Urobilinogen 2 H Negative mg/dL Urine Leukocyte Esterase Negative Negative /uL Urine RBC 1 0 - 3 /hpf Urine Microscopic WBC 4 H 0-3 /HPF Urine Squamous Epithelial Cells Few <5 /hpf Urine Bacteria None seen None Seen /hpf Urine Glucose Normal Normal mg/dL Troponin I High Sensitivity 3 L 6 </=54 ng/L White Blood Count 25.7 H 4.4-10.8 10^3/uL Red Blood Count 4.72 4.5-5.90 10^6/uL Hemoglobin 8.5 L 13.5-17.5 g/dL Hematocrit 29.8 L 41.0-53.0 % Mean Corpuscular Volume 63.0 L 80.0-100.0 fL Mean Corpuscular Hemoglobin 18.0 L 28.0-32.0 pg Mean Corpuscular Hemoglobin Concent 28.6 L 32.0-36.0 g/dL Red Cell Distribution Width 20.9 H 11.8-14.3 % Platelet Count 508 H 140-450 10^3/uL Mean Platelet Volume 6.6 L 6.9-10.8 fL Neutrophils (%) (Auto) 37.0-80.0 % Lymphocytes (%) (Auto) 10.0-50.0 % Monocytes (%) (Auto) 0.0-12.0 % Basophils (%) (Auto) 0.0-2.0 % Neutrophils # (Auto) 1.6-8.6 10 ^3/uL Lymphocytes # (Auto) 0.4-5.4 10 ^3/uL Monocytes # (Auto) 0-1.3 10 ^3/uL Differential Total Cells Counted 100.0 100 Neutrophils % (Manual) 87 H 37.0-80.0 Band Neutrophils % (Manual) 6 Lymphocytes % (Manual) 4 L 10.0-50.0 Monocytes % (Manual) 3 0-12 Eosinophils % (Manual) 0 0-7 Basophils % (Manual) 0 0.0-2.0 Metamyelocytes % (manual) 0 Myelocytes % (Manual) 0 Promyelocytes % (Manual) 0 Blast Cells % (Manual) 0 Reactive Lymphocytes 0 Platelet Estimate Increased Hypochromasia (manual) Marked Anisocytosis (manual) Slight Microcytosis Marked Prothrombin Time 13.0 H 9.3-11.8 sec Prothrombin Time INR 1.25 H 0.9-1.15 Activated Partial Thromboplast Time 33.0 24.5-34.5 SEC Sodium Level 139 136-145 mmol/L Potassium Level 3.6 3.5-5.1 mmol/L Chloride Level 104 98-107 mmol/L Carbon Dioxide Level 20 20-31 mmol/L Anion Gap 15 5-15 Blood Urea Nitrogen 12 9-23 mg/dL Creatinine 0.91 0.700-1.30 mg/dL Glomerular Filtration Rate Calc 88 >90 mL/min BUN/Creatinine Ratio 13.2 10.0-20.0 Serum Glucose 219 H 74-106 mg/dL Lactic Acid Level 4.8 *H 0.4-2.0 mmol/L Calcium Level 8.5 L 8.7-10.4 mg/dL Total Bilirubin 0.5 0.2-1.0 mg/dL Aspartate Amino Transferase (AST) 21 13-40 U/L Alanine Aminotransferase (ALT) 22 7-40 U/L Alkaline Phosphatase 131 H 46-116 U/L B-Type Natriuretic Peptide 27.80 0-100 pg/mL Total Protein 6.6 5.7-8.2 g/dL Albumin 3.3 3.2-4.8 g/dL Microbiology Date/Time Source Procedure Growth Status 09/08/25 08:15 Nose MRSA Screen - Final Complete Assessment Acute kidney injury likely sec to vancomycin toxicity with high Vanco levels+ severe sepsis Severe sepsis Abscess status post drainage Morbid obesity Chronic hypoxic respiratory failure COPD Congestive heart failure echo pending Recommendations Recommend holding vancomycin,, switch to different antibiotics NS IV 1 L as ordered Echocardiogram is pending Chest x-ray noted He is on minimal diuretics--continue for now Avoid nephrotoxins ct abd --no hydro Plan discussed with: Patient RED BRANTLEY MD Sep 12, 2025 14:07
[2025-09-12] MEDS: MAGNESIUM OXIDE 400 MG TAB PO ONE (14:12)
--- NOTE | 2025-09-12 14:16 | DVHSR ---
APPROVED REPORT EXAM: Two-dimensional and M-mode echocardiogram with Doppler and color Doppler. Blood Pressure: 151/66 mmHg INDICATION CHF RISK FACTORS Obesity: Height: 6'2, Weight: 384 DIMENSIONS LVDd5.3 (3.8-5.7cm)LA (2D)3.4 (1.9-4.0cm)Aortic Root3.4 (2.0-3.7cm) LVDs3.9 (2.5-4.0cm)LA (MM) (1.9-4.0cm)Aortic Cusp Exc1.6 (1.5-2.0cm) EF (%) 55.0 (55-70%)Rt. Atrium (1.9-4.0cm)Asc. Aorta cm IVSd0.9 (0.7-1.1cm)RV (D)3.0 (1.8-2.4cm) PWd0.9 (0.7-1.1cm) Mitral Valve MitralMitral Stenosis E wave0.68m/sMV Mean GR.mmHg A wave1.09m/sMV Peak GR.mmHg E/A ratio0.62D MVAcm2 DECEL [id number] 1/2 [place] Aortic Valve Aortic ValveAortic Stenosis V11.00m/Josefina Mean GR.mmHg V21.27m/Josefina Peak GR.9mmHg LVOT Diameter2.3 (1.8-2.4cm)Doppler AVA3.27cm2 Pulmonic Valve V21.29m/s Tricuspid Valve TR Velocity3.45m/s [id number] Other Information Quality : Technically LimitedRhythm : Technically limited study due to patient position.body habitus. Pt sitting up unable to lay back or turn. Conclusion lvef 55 % normal rv function mild LVH normal atria no severe valve abnormaliteis noted limited study asked to read echo 1 hour ago
[2025-09-12] MEDS: SODIUM CHLORIDE 0.9% 1,000 ML IV ONE (15:10)
[2025-09-12] MEDS: PIPERACILLIN-TAZOB 3.375GM 100 ML IV SCH (17:00)
[2025-09-12] MEDS: ACCU-CHEK COMFORT CURVE STRIP VI SCH (18:10)
[2025-09-12] MEDS: InsuLIN REG 1unit/0.01ml Soln (100units/ml) SC SCH (18:23)
--- NOTE | 2025-09-12 18:36 | DVH ---
CHEST RADIOGRAPH Indication: CHOKED ON PILLS Technique: Single frontal view of the chest was obtained Comparison: XY CHEST PORTABLE on DOS: 09/12/25, XY CHEST PORTABLE on DOS: 09/11/25, XY CHEST PORTABLE on DOS: 01/31/23 FINDINGS: Lines and Tubes: None Lungs: Increasing bronchovascular markings bilaterally with mild cardiomegaly. Pleura: No effusion. No pneumothorax. Cardiomediastinal contours: Unremarkable Bones: No acute osseous abnormality. IMPRESSION: 1. Findings of congestive failure worse than study of 09/12/2025 0512.
[2025-09-13] VITALS (33 sets, daily range): BP systolic 124–153; BP diastolic 48–63; PULSE 91–105; RESP 15–31; TEMP 97.7–98.8; O2SAT 91–100
[2025-09-13 06:00] LABS: Hematocrit 24.0 % (41.0-53.0)
[2025-09-13 06:04] LABS: Hemoglobin 7.2 g/dL (13.5-17.5); Mean Corpuscular Hemoglobin 19.0 pg (28.0-32.0); Mean Corpuscular Volume 63.1 fL (80.0-100.0); Nucleated Red Blood Cells % 0.1 %
[2025-09-13 06:10] LABS: Chloride 103 mmol/L (98-107); Sodium 139 mmol/L (136-145)
[2025-09-13 06:11] LABS: Anion Gap 11 (5-15); Carbon Dioxide 25 mmol/L (20-31)
[2025-09-13 06:16] LABS: BUN/Creatinine Ratio 6.1 (10.0-20.0); Blood Urea Nitrogen 17 mg/dL (9-23)
[2025-09-13 06:24] LABS: Calcium 7.7 mg/dL (8.7-10.4); Glucose 199 mg/dL (74-106); Potassium 3.2 mmol/L (3.5-5.1)
[2025-09-13] MEDS: POTASSIUM CHL 20MEQ/100ML 100 ML IV SCH (06:54)
--- NOTE | 2025-09-13 09:21 | DVHPN2 ---
Progress Note Date Seen: Sep 13, 2025 Medical Necessity Reason Pt with a Central, PICC or Fol: No Subjective Review of Systems: RESPIRATORY:Abnormal Other Systems: Patient seen and examined by myself today in follow-up Objective vital signs Vital Sign Date Time Temp Pulse Resp B/P (MAP) Pulse Ox O2 Delivery O2 Flow Rate FiO2 09/13/25 08:00 100 18 98 Nasal Cannula* 1 24 09/13/25 08:00 98.2 129/57 (81) 98.2 Total Intake and Output 09/12/25 09/12/25 09/13/25 15:00 23:00 07:00 Intake Total 1380 ml 1550 ml Output Total 640 ml 450 ml Balance 740 ml 1100 ml medications Current Medications Medications Dose Ordered Sig/Nivia Route Start Time Stop Time Status Last Admin Dose Admin Vancomycin HCl 0 ml @ 0 mls/hr UD IV 09/08/25 00:00 Nitroglycerin 0.4 mg Q5MINP PRN SL 09/08/25 00:00 Morphine Sulfate 2 mg Q30M PRN IV 09/08/25 00:00 Hydromorphone HCl 0.5 mg Q6HPRN PRN IV 09/08/25 00:00 09/13/25 00:13 0.5 MG Albuterol 2.5 mg Q6HPRN PRN NEB 09/08/25 00:15 Ipratropium [place] 0.5 mg Q6HPRN PRN NEB 09/08/25 00:15 09/13/25 00:33 0.5 MG Clindamycin Phosphate 50 ml @ 50 mls/hr Q8HR IV 09/08/25 14:00 09/13/25 05:17 50 MLS/HR Pantoprazole Sodium 40 mg DAILY IV 09/09/25 10:00 09/12/25 10:36 40 MG Ondansetron HCl 4 mg Q6HP PRN IV 09/09/25 15:15 Acetaminophen 650 mg Q6HP PRN DC 09/11/25 10:15 09/11/25 10:55 650 MG Albuterol 2.5 mg Q6HR NEB 09/11/25 18:00 09/13/25 06:27 2.5 MG Heparin Sodium (Porcine) 5,000 units Q12HR SC 09/12/25 10:00 09/12/25 21:12 5,000 UNITS Piperacillin Sod/ Tazobactam Sod 100 ml @ 25 mls/hr Q8H IV 09/12/25 17:00 09/13/25 08:36 25 MLS/HR Diagnostic Test (Pha) 1 strip Q6HR 09/12/25 18:00 09/13/25 06:02 1 STRIP Insulin Human Regular Q6HR SC 09/12/25 18:00 09/13/25 06:02 8 UNITS Dextrose 50 ml UD PRN IV 09/12/25 13:30 Potassium Chloride 100 ml @ 50 mls/hr Q2H IV 09/13/25 07:00 09/13/25 10:59 09/13/25 08:36 50 MLS/HR Furosemide 20 mg DAILY IV 09/13/25 10:00 Examination: LUNGS:Normal, CVS:Normal, MSK:Normal laboratory and microbiology Laboratory Tests 09/13/25 05:00 Test 09/13/25 05:00 Range/Units Serum Glucose 199 H 74-106 mg/dL Microbiology Date/Time Source Procedure Growth Status 09/11/25 12:30 Urine - [place] Urine Culture - Preliminary Resulted 09/09/25 13:30 Aspirate Gram Stain - Final Complete 09/09/25 13:30 Body Fluid Culture - Final Escherichia coli Pseudomonas aeruginosa Complete 09/08/25 10:59 Blood Blood Culture - Preliminary NO GROWTH AFTER 72 HOURS OF INCUBATION. Resulted 09/08/25 08:15 Nose MRSA Screen - Final Complete Problem List/Assessment/Plan Problem List/Assessment/Plan Acute kidney injury secondary to vancomycin toxicity COPD exacerbation Acute on chronic respiratory failure Abscess status post drainage Morbid obesity Diabetes mellitus type 2 Abdominal wall abscess Hypokalemia Recommendations Kidney function continue to worsen Increased urine output Strict I&Os Discontinue vancomycin Insulin sliding scale IV antibiotics IV steroids KCL replacement We will continue to follow up Plan discussed with: Patient Dietary Evaluation Review Comments: Nutrition Recommendation 1) advance to [facility] 75gm + 2gm Na diet as medically feasible 2) Refer [employer] for diabetes education 3) Monitor PO intake, lab values, weight trend, and I/O Expected Outcomes/Goals: Intake to meet >75% estimated needs Lab values to improve Fu 2-3 days RAYNA NICHOLS MD Sep 13, 2025 09:21
[2025-09-13] MEDS: FLORASTOR (S. BOULARDII) 250 MG CAP PO SCH (10:00)
[2025-09-13] MEDS: FUROSEMIDE 20 MG/2 ML VIAL IV SCH (10:24)
--- NOTE | 2025-09-13 10:43 | DVHPNRES ---
Progress Note Date Seen: Sep 13, 2025 Resident Creating Document: DAILY VAL[place] RESIDENT Medical Necessity Reason Pt with a Central, PICC or Fol: No Subjective Review of Systems Review of Systems Patient is 75-year-old male who came to the evaluation of chief complaint of shortness of breath, requiring inhaler and nebulization at home, associated with right lower quadrant abdominal pain and associated chills. No any other new complaints. Past medical history: Hypertension, diabetes mellitus type 2, Chronic obstructive pulmonary disease, pulmonary embolism, AAA questionable Past surgical history none Allergy lisinopril Family history none 09/10/2025: Patient seen examined in ramin. Status post pigtail insertion over right lower quadrant. Draining well. Appropriate abdominal discomfort, generalized weak. No any other new complaint. On oxygen via nasal cannula. 09/12/2025: patient seen in [facility]. On 2 oxygen via [place]. pig tail draining well. no night events, Has fe blisters over abdominal skill folds. 09/13/2025:Patient seen and examined at bedside. On 2 L o2. patient had green color stool. pain at the site of abscess. Objective vital signs Vital Sign Date Time Temp Pulse Resp B/P (MAP) Pulse Ox O2 Delivery O2 Flow Rate FiO2 09/13/25 08:00 100 18 98 Nasal Cannula* 1 24 09/13/25 08:00 98.2 129/57 (81) 98.2 Total Intake and Output 09/12/25 09/12/25 09/13/25 15:00 23:00 07:00 Intake Total 1380 ml 1550 ml Output Total 640 ml 450 ml Balance 740 ml 1100 ml medications Current Medications Medications Dose Ordered Sig/Nivia Route Start Time Stop Time Status Last Admin Dose Admin Vancomycin HCl 0 ml @ 0 mls/hr UD IV 09/08/25 00:00 Nitroglycerin 0.4 mg Q5MINP PRN SL 09/08/25 00:00 Morphine Sulfate 2 mg Q30M PRN IV 09/08/25 00:00 Hydromorphone HCl 0.5 mg Q6HPRN PRN IV 09/08/25 00:00 09/13/25 00:13 0.5 MG Albuterol 2.5 mg Q6HPRN PRN NEB 09/08/25 00:15 Ipratropium [place] 0.5 mg Q6HPRN PRN NEB 09/08/25 00:15 09/13/25 00:33 0.5 MG Clindamycin Phosphate 50 ml @ 50 mls/hr Q8HR IV 09/08/25 14:00 09/13/25 05:17 50 MLS/HR Pantoprazole Sodium 40 mg DAILY IV 09/09/25 10:00 09/12/25 10:36 40 MG Ondansetron HCl 4 mg Q6HP PRN IV 09/09/25 15:15 Acetaminophen 650 mg Q6HP PRN TN 09/11/25 10:15 09/11/25 10:55 650 MG Albuterol 2.5 mg Q6HR NEB 09/11/25 18:00 09/13/25 06:27 2.5 MG Heparin Sodium (Porcine) 5,000 units Q12HR SC 09/12/25 10:00 09/12/25 21:12 5,000 UNITS Piperacillin Sod/ Tazobactam Sod 100 ml @ 25 mls/hr Q8H IV 09/12/25 17:00 09/13/25 08:36 25 MLS/HR Diagnostic Test (Pha) 1 strip Q6HR 09/12/25 18:00 09/13/25 06:02 1 STRIP Insulin Human Regular Q6HR SC 09/12/25 18:00 09/13/25 06:02 8 UNITS Dextrose 50 ml UD PRN IV 09/12/25 13:30 Potassium Chloride 100 ml @ 50 mls/hr Q2H IV 09/13/25 07:00 09/13/25 10:59 09/13/25 08:36 50 MLS/HR Furosemide 20 mg DAILY IV 09/13/25 10:00 Saccharomyces Boulardii 250 mg BID PO 09/13/25 10:00 Examination General Appearance: Not in acute distress Head Exam: Normal inspection Neck Exam: Normal inspection. Non-tender. Normal alignment Pulmonary/Respiratory: Chest non-tender. Clear bilateral breath sounds Cardiovascular/Chest: Regular rate and rhythm. No murmurs. No JVD. Peripheral Pulses: 2+ Radial (R). 2+ Radial (L). 2+ Pedal (R). 2+ Pedal (L) Abdominal Exam: Normal bowel sounds. Soft. Nontender. No hepatospenomegaly. No masses, pigtail over right lover quadrant, erythema and tenderness over right lower quadrant. blisters over skin folds Ankle Exam: Negative ankle edema Lower extremities: Negative lower extremity edema Neuro/Mental Status: A&O x4. Coherent Thoughts/Psych: Normal thought pattern. Appropriate mood and affect. Good judgement and insight laboratory and microbiology Laboratory Tests 09/13/25 05:00 Test 09/13/25 05:00 Range/Units Serum Glucose 199 H 74-106 mg/dL Microbiology Date/Time Source Procedure Growth Status 09/11/25 12:30 Urine - [place] Urine Culture - Preliminary Resulted 09/09/25 13:30 Aspirate Gram Stain - Final Complete 09/09/25 13:30 Body Fluid Culture - Final Escherichia coli Pseudomonas aeruginosa Complete 09/08/25 10:59 Blood Blood Culture - Preliminary NO GROWTH AFTER 72 HOURS OF INCUBATION. Resulted 09/08/25 08:15 Nose MRSA Screen - Final Complete Problem List/Assessment/Plan Problem List/Assessment/Plan Infection sepsis with ?necrotizing fascitis Abdominal wall abscess versus necrotizing fasciitis Lactic acidosis -IV antibiotic: Zosyn, clindamycin -blood culture: Negative -body fluid culture: Ecoli and psedomonas -status post pigtail insertion -MRSA negative -CT abdomen: 7.7 x 6.4 x 11.8 cm fluid collection at the right lower abdominal subcutaneous fat with involvement of the right lateral abdominal wall and cecum Respiratory acute resp failure: cont oxygen Chronic obstructive pulmonary disease Currently at 2L o2 via NC -continue oxygen via nasal cannula, currently 2 L oxygen. -albuterol 2.5 mg nebulization q.6 PRN -IV Lasix 40 mg twice daily Cardiology Acue HFPEF htn h/o pe: doppler both legs- neg -IV Lasix 40 mg twice daily -echocardiogram pending results: lvef 55 % -continue to monitor electrolytes: Potassium > 4, magnesium > 2. Nephrology DAVY due to VMN -1.34, 2.41,2.79 -Lasix 40 mg IV BID -Urine electrolytes: Fena: 0.35 likely prerenal -BMP in am -Avoid nephrotoxic drugs -Nephrology consultation -Stopped vancomycin Hypokalemia Hypomagnesemia -Replenish Endocrine Uncontrollable diabetes mellitus type 2 with HGB A1c 8% on 09/09/2025 Morbid obesity BMI 48.4 kg/m2 -Severe insulin sliding scale -diabetic and cardiac diet Hematology Microcytic Hypochromic Anemia Hypokalemia -hemoglobin 7.3 -repeat H and H -iron panel PUD prophylaxis:protonix DVT prophylaxis:Heparin Informed all clinical details to [place] at bedside. Critical care time spent 53 minutes Plan discussed with Dr Resendiz Plan discussed with: Patient, Spouse My Orders My Orders Orders - DAILY [facility] RESIDENT Procedure Category Date Status Time Glucose Blood PHA 09/12/25 In Process (Accu-Chek Comfort 18:00 Insulin R (Human) PHA 09/12/25 In Process (Insulin R) 18:00 Dextrose 50% Syringe PHA 09/12/25 In Process 13:30 * Wound Consult CONS 09/12/25 Transmitted Chest Portable XY 09/12/25 Resulted 14:18 Furosemide Injection PHA 09/13/25 In Process (Lasix Injection) 10:00 Florastor (S. PHA 09/13/25 In Process Boulardii) (Florastor) 10:00 Pt Request For Service PT 09/13/25 Logged 09:40 Dietary Evaluation Review Comments: Nutrition Recommendation 1) advance to [facility] 75gm + 2gm Na diet as medically feasible 2) Refer Toe Pounder for diabetes education 3) Monitor PO intake, lab values, weight trend, and I/O Expected Outcomes/Goals: Intake to meet >75% estimated needs Lab values to improve Fu 2-3 days Date of Service: Sep 13, 2025 Billing Provider: KEVIN NICKERSON MD Common Visit Codes: [id number] CARE 30-74 MIN DAILY VALDES Sep 13, 2025 10:43 KEVIN NICKERSON MD Sep 14, 2025 15:49
[2025-09-13] MEDS: MAGNESIUM SULFATE 1GM/100ML 100 ML IV ONE (12:07)
[2025-09-13] MEDS: FUROSEMIDE 40 MG/4 ML VIAL IV ONE (12:07)
--- NOTE | 2025-09-13 12:37 | MEDREC ---
[facility] Intervention Section I [facility] Intervention: Review courses of therapy (With culture result, please consider stopping clindamycin if no Group A Streptococcus (GAS) or toxin- producing organisms) JESS WALSH [facility] RESIDENT Sep 13, 2025 12:37
[2025-09-13] MEDS: FUROSEMIDE 40 MG/4 ML VIAL IV SCH (17:17)
[2025-09-13] MEDS: Ensure HIGH Protein Chocolate 8oz Bottle PO SCH (18:18)
[2025-09-13] MEDS: ALBUTEROL SULF 2.5 MG/0.5ML(0.5%) NEB SOLN ONE (19:11)
[2025-09-14] VITALS (41 sets, daily range): BP systolic 116–164; BP diastolic 47–80; PULSE 92–108; RESP 14–29; TEMP 97.6–99.6; O2SAT 90–100
--- NOTE | 2025-09-14 03:29 | DVH ---
Exam: CT CT AB PEL WO CON-NO ORAL OR IV History: right abdominal wall abcess Comparison Study: CT CT AB PEL WO CON-NO ORAL OR IV on DOS: 09/07/25 Technique: Multidetector spiral CT of the abdomen was performed from lung bases to pubic symphysis. I maging was performed without IV contrast. Axial, coronal and sagittal multiplanar reformats were obta ined from the axial data set by the technologist. Radiation Dose : 1. Abdomen/Pelvis: CTDIvol 25.85 mGy, DLP 1615.24 mGy*cm. Findings: Evaluation of solid organs is limited due to lack of intravenous contrast use. Beam hardening from ar ms down positioning, and edge of gantry artifact, further limits assessment. Lower Chest: Coarse reticular branching opacities in the lung bases, without significant consolidatio n. Normal heart size. Liver: Diffuse hypoattenuation. Gallbladder and Biliary Tree: Faint layering density of the gallbladder neck. No wall thickening or ductal dilation. Pancreas: Diffuse atrophy. Spleen: Unremarkable. Adrenal Glands: Unremarkable. Kidneys/Ureters: No urinary stone or obstruction. Simple right renal cyst. Bladder: Contracted around a Warner catheter with circumferential wall prominence. Pelvic Organs: Unremarkable as visualized. Bowel: The distal esophagus, stomach, duodenum and small bowel are unremarkable. The cecum is indisti nct but appears associated with a thick-walled gas-fluid collection. The more distal large bowel is n ormal in caliber without wall thickening. Colonic diverticulosis without diverticulitis. The appendi x appears normal. Vasculature: Mild atherosclerosis. Lymphadenopathy: No obvious adenopathy. Peritoneum: Evidence of a thick-walled gas and fluid collection indistinct from the cecum as above, m easuring up to 9 cm in diameter. No free air or significant ascites. Abdominal Wall: Large, oblique, heterogeneously low-density collection in the right lower quadrant ab dominal wall measuring up to 18.5 cm in long axis. The pigtail drain is present within the far latera l aspect. The superolateral aspect of the collection appears to communicate through the abdominal wal l to the cecum (axial image 78/115). Extensive subcutaneous stranding along the right abdomen and pel vis. Musculoskeletal: No acute abnormality. Mild degenerative changes. IMPRESSION: 1. Large, predominantly gas filled collection in the right lower quadrant abdominal wall measuring up to 18.5 cm. This collection appears to communicate through the abdominal wall to the cecum, with an indistinct additional component of the collection measuring up to 9 cm within the peritoneum. 2. No other acute abdominopelvic abnormality. Several chronic and incidental findings as detailed. 3. Opacities in the lung bases appear most consistent with chronic fibrosis, although other etiologie s are possible. Radiation optimization: All CT scans at this facility use at least one of these dose optimization michael hniques: automated exposure control mA and/or kV adjustment per patient size (includes targeted exam s where dose is matched to clinical indication) or iterative reconstruction.
[2025-09-14 06:08] LABS: Nucleated Red Blood Cells % 0.0 %
[2025-09-14 06:11] LABS: Hematocrit 23.7 % (41.0-53.0); Mean Corpuscular Hemoglobin 18.7 pg (28.0-32.0); Mean Corpuscular Volume 63.4 fL (80.0-100.0)
[2025-09-14 06:17] LABS: Hemoglobin 7.0 g/dL (13.5-17.5)
[2025-09-14 06:25] LABS: Anion Gap 12 (5-15); Carbon Dioxide 25 mmol/L (20-31); Chloride 101 mmol/L (98-107); Sodium 138 mmol/L (136-145)
[2025-09-14 06:31] LABS: BUN/Creatinine Ratio 5.0 (10.0-20.0); Blood Urea Nitrogen 16 mg/dL (9-23); Calcium 7.6 mg/dL (8.7-10.4); Glucose 184 mg/dL (74-106); Magnesium 1.8 mg/dL (1.6-2.6); Potassium 3.2 mmol/L (3.5-5.1)
[2025-09-14] MEDS: POTASSIUM CHL 20MEQ/100ML 100 ML IV SCH (06:58)
--- NOTE | 2025-09-14 08:50 | DVH ---
EXAM: XY CHEST XRAY 1 VIEW Indication: chf Technique: Single frontal view of the chest was obtained Comparison: XY CHEST PORTABLE on DOS: 09/12/25, XY CHEST PORTABLE on DOS: 09/12/25, XY CHEST PORTABLE on DOS: 09/11/25, XY CHEST PORTABLE on DOS: 09/10/25, XY CHEST PORTABLE on DOS: 09/09/25 FINDINGS: Lines and Tubes: None Lungs: Pulmonary vascular congestion. Pleura: No effusion. No pneumothorax. Cardiomediastinal contours: Cardiomegaly. Bones: No acute osseous abnormality. IMPRESSION: Cardiomegaly with pulmonary vascular congestion.
--- NOTE | 2025-09-14 09:58 | DVHPNRES ---
Progress Note Date Seen: Sep 14, 2025 Resident Creating Document: DAILY [place] RESIDENT Medical Necessity Reason Pt with a Central, PICC or Fol: No Subjective Review of Systems Patient is 75-year-old male who came to the evaluation of chief complaint of shortness of breath, requiring inhaler and nebulization at home, associated with right lower quadrant abdominal pain and associated chills. No any other new complaints. Past medical history: Hypertension, diabetes mellitus type 2, Chronic obstructive pulmonary disease, pulmonary embolism, AAA questionable Past surgical history none Allergy lisinopril Family history none 09/10/2025: Patient seen examined in ramin. Status post pigtail insertion over right lower quadrant. Draining well. Appropriate abdominal discomfort, generalized weak. No any other new complaint. On oxygen via nasal cannula. 09/12/2025: patient seen in [facility]. On 2 oxygen via [place]. pig tail draining well. no night events, Has fe blisters over abdominal skill folds. 09/13/2025:Patient seen and examined at bedside. On 2 L o2. patient had green color stool. pain at the site of abscess. 09/14/2025:Patient seen and examined at bedside. On 2 L o2. patient had green color stool. pain at the site of abscess.Repeat ct abdomen showed 18 cm collection of fluid. IR and surgery has been informed. patient has loose few stools. no other complains. Objective vital signs Vital Sign Date Time Temp Pulse Resp B/P (MAP) Pulse Ox O2 Delivery O2 Flow Rate FiO2 09/14/25 08:15 101 18 116/47 90 1.0 09/14/25 08:00 97.6 97.6 09/14/25 08:00 Nasal Cannula* 24 Total Intake and Output 09/13/25 09/13/25 09/14/25 15:00 23:00 07:00 Intake Total 930 ml 870 ml 450 ml Output Total 1782 ml 1500 ml Balance 930 ml -912 ml -1050 ml medications Current Medications Medications Dose Ordered Sig/Nivia Route Start Time Stop Time Status Last Admin Dose Admin Nitroglycerin 0.4 mg Q5MINP PRN SL 09/08/25 00:00 Morphine Sulfate 2 mg Q30M PRN IV 09/08/25 00:00 Hydromorphone HCl 0.5 mg Q6HPRN PRN IV 09/08/25 00:00 09/13/25 22:55 0.5 MG Albuterol 2.5 mg Q6HPRN PRN NEB 09/08/25 00:15 Ipratropium [place] 0.5 mg Q6HPRN PRN NEB 09/08/25 00:15 09/13/25 19:02 0.5 MG Clindamycin Phosphate 50 ml @ 50 mls/hr Q8HR IV 09/08/25 14:00 09/14/25 05:08 50 MLS/HR Pantoprazole Sodium 40 mg DAILY IV 09/09/25 10:00 09/13/25 10:25 40 MG Ondansetron HCl 4 mg Q6HP PRN IV 09/09/25 15:15 Acetaminophen 650 mg Q6HP PRN [place] 09/11/25 10:15 09/11/25 10:55 650 MG Albuterol 2.5 mg Q6HR NEB 09/11/25 18:00 09/14/25 05:59 2.5 MG Heparin Sodium (Porcine) 5,000 units Q12HR SC 09/12/25 10:00 09/13/25 21:59 5,000 UNITS Piperacillin Sod/ Tazobactam Sod 100 ml @ 25 mls/hr Q8H IV 09/12/25 17:00 09/14/25 08:45 25 MLS/HR Diagnostic Test (Pha) 1 strip Q6HR 09/12/25 18:00 09/14/25 05:59 1 STRIP Insulin Human Regular Q6HR SC 09/12/25 18:00 09/14/25 05:58 8 UNITS Dextrose 50 ml UD PRN IV 09/12/25 13:30 Saccharomyces Boulardii 250 mg BID PO 09/13/25 10:00 09/13/25 22:00 250 MG Furosemide 40 mg BIDD IV 09/13/25 18:00 09/14/25 05:09 40 MG Enteral Nutritional Formula 240 ml BIDWM PO 09/13/25 18:00 09/14/25 08:44 240 ML Potassium Chloride 100 ml @ 50 mls/hr Q2H IV 09/14/25 07:00 09/14/25 10:59 09/14/25 08:44 50 MLS/HR Examination General Appearance: Not in acute distress Head Exam: Normal inspection Neck Exam: Normal inspection. Non-tender. Normal alignment Pulmonary/Respiratory: Chest non-tender. Clear bilateral breath sounds Cardiovascular/Chest: Regular rate and rhythm. No murmurs. No JVD. Peripheral Pulses: 2+ Radial (R). 2+ Radial (L). 2+ Pedal (R). 2+ Pedal (L) Abdominal Exam: Normal bowel sounds. Soft. Nontender. No hepatospenomegaly. No masses, pigtail over right lover quadrant, erythema and tenderness over right lower quadrant. blisters over skin folds Ankle Exam: Negative ankle edema Lower extremities: Negative lower extremity edema Neuro/Mental Status: A&O x4. Coherent Thoughts/Psych: Normal thought pattern. Appropriate mood and affect. Good judgement and insight laboratory and microbiology Laboratory Tests 09/14/25 04:56 Test 09/14/25 04:56 Range/Units Serum Glucose 184 H 74-106 mg/dL Microbiology Date/Time Source Procedure Growth Status 09/11/25 12:30 Urine - [place] Urine Culture - Preliminary Resulted 09/09/25 13:30 Aspirate Gram Stain - Final Complete 09/09/25 13:30 Body Fluid Culture - Final Escherichia coli Pseudomonas aeruginosa Complete 09/08/25 10:59 Blood Blood Culture - Final NO GROWTH AFTER 5 DAYS OF INCUBATION. Complete 09/08/25 08:15 Nose MRSA Screen - Final Complete Problem List/Assessment/Plan Problem List/Assessment/Plan Infection sepsis with ?necrotizing fascitis Abdominal wall abscess versus necrotizing fasciitis Lactic acidosis -IV antibiotic: Zosyn, linezolid , micafungin -blood culture: Negative -body fluid culture: Ecoli and psedomonas -status post pigtail insertion -MRSA negative -CT abdomen: 7.7 x 6.4 x 11.8 cm fluid collection at the right lower abdominal subcutaneous fat with involvement of the right lateral abdominal wall and cecum -CT abdomen(09/13/25): 1. Large, predominantly gas filled collection in the right lower quadrant abdominal wall measuring up to 18.5 cm. This collection appears to communicate through the abdominal wall to the cecum, with an indistinct additional component of the collection measuring up to 9 cm within the peritoneum -IR and surgery consultation Respiratory acute resp failure: cont oxygen Chronic obstructive pulmonary disease Currently at 2L o2 via NC -continue oxygen via nasal cannula, currently 2 L oxygen. -albuterol 2.5 mg nebulization q.6 PRN -DC: IV Lasix 40 mg twice daily Cardiology Acue HFPEF htn h/o pe Ruled out lower ext DVT -DC:IV Lasix 40 mg twice daily -echocardiogram pending results: lvef 55 % -continue to monitor electrolytes: Potassium > 4, magnesium > 2. Nephrology DAVY due to VMN -1.34, 2.41,2.79,3.23 -Urine electrolytes: Fena: 0.35 likely prerenal -BMP in am -Avoid nephrotoxic drugs -Nephrology consultation -Stopped vancomycin Hypokalemia Hypomagnesemia -Replenish Endocrine Uncontrollable diabetes mellitus type 2 with HGB A1c 8% on 09/09/2025 Morbid obesity BMI 48.4 kg/m2 -Severe insulin sliding scale -diabetic and cardiac diet Hematology Microcytic Hypochromic Anemia Hypokalemia -hemoglobin 7.3, 6.9 -repeat H and H -iron panel -1 unit of PRBCS PUD prophylaxis:protonix DVT prophylaxis:SCD Critical care time spent 53 minutes Plan discussed with Dr Resendiz Plan discussed with: Patient, Other My Orders My Orders Orders - DAILY [place] RESIDENT Procedure Category Date Status Time Apply: BRIDGET 09/13/25 In Process 13:44 Cover Wound With Dry BRIDGET 09/13/25 In Process Dressing 13:44 Ct Ab Pel Wo Con-No CT 09/13/25 Resulted Oral Or Iv 16:58 Type And Screen BBK 09/14/25 In Process 06:34 Chest Xray 1 View XY 09/14/25 Resulted 07:16 * Radiologist Consult CONS 09/14/25 Transmitted 07:17 Dietary Evaluation Review Comments: Nutrition Recommendation 1) advance to [facility] 75gm + 2gm Na diet as medically feasible 2) Refer Shingle Bolt Cutter for diabetes education 3) Monitor PO intake, lab values, weight trend, and I/O Expected Outcomes/Goals: Intake to meet >75% estimated needs Lab values to improve Fu 2-3 days Date of Service: Sep 14, 2025 Billing Provider: KEVIN NICKERSON MD Common Visit Codes: [id number] CARE 30-74 MIN DAILY VAL[place] Sep 14, 2025 09:57 KEVIN NICKERSON MD Sep 15, 2025 13:24
--- NOTE | 2025-09-14 10:36 | DVHPN2 ---
Progress Note Date Seen: Sep 14, 2025 Medical Necessity Reason Pt with a Central, PICC or Fol: No Subjective Patient reports: No new complaints Other Systems: Patient seen and examined by myself today in follow-up Objective vital signs Vital Sign Date Time Temp Pulse Resp B/P (MAP) Pulse Ox O2 Delivery O2 Flow Rate FiO2 09/14/25 08:15 101 18 116/47 90 1.0 09/14/25 08:00 97.6 97.6 09/14/25 08:00 Nasal Cannula* 24 Total Intake and Output 09/13/25 09/13/25 09/14/25 15:00 23:00 07:00 Intake Total 930 ml 870 ml 450 ml Output Total 1782 ml 1500 ml Balance 930 ml -912 ml -1050 ml medications Current Medications Medications Dose Ordered Sig/Nivia Route Start Time Stop Time Status Last Admin Dose Admin Nitroglycerin 0.4 mg Q5MINP PRN SL 09/08/25 00:00 Morphine Sulfate 2 mg Q30M PRN IV 09/08/25 00:00 Hydromorphone HCl 0.5 mg Q6HPRN PRN IV 09/08/25 00:00 09/13/25 22:55 0.5 MG Albuterol 2.5 mg Q6HPRN PRN NEB 09/08/25 00:15 Ipratropium [place] 0.5 mg Q6HPRN PRN NEB 09/08/25 00:15 09/13/25 19:02 0.5 MG Clindamycin Phosphate 50 ml @ 50 mls/hr Q8HR IV 09/08/25 14:00 09/14/25 05:08 50 MLS/HR Pantoprazole Sodium 40 mg DAILY IV 09/09/25 10:00 09/13/25 10:25 40 MG Ondansetron HCl 4 mg Q6HP PRN IV 09/09/25 15:15 Acetaminophen 650 mg Q6HP PRN [place] 09/11/25 10:15 09/11/25 10:55 650 MG Albuterol 2.5 mg Q6HR NEB 09/11/25 18:00 09/14/25 05:59 2.5 MG Piperacillin Sod/ Tazobactam Sod 100 ml @ 25 mls/hr Q8H IV 09/12/25 17:00 09/14/25 08:45 25 MLS/HR Diagnostic Test (Pha) 1 strip Q6HR 09/12/25 18:00 09/14/25 05:59 1 STRIP Insulin Human Regular Q6HR SC 09/12/25 18:00 09/14/25 05:58 8 UNITS Dextrose 50 ml UD PRN IV 09/12/25 13:30 Saccharomyces Boulardii 250 mg BID PO 09/13/25 10:00 09/13/25 22:00 250 MG Furosemide 40 mg BIDD IV 09/13/25 18:00 09/14/25 05:09 40 MG Enteral Nutritional Formula 240 ml BIDWM PO 09/13/25 18:00 09/14/25 08:44 240 ML Potassium Chloride 100 ml @ 50 mls/hr Q2H IV 09/14/25 07:00 09/14/25 10:59 09/14/25 08:44 50 MLS/HR Examination: LUNGS:Normal, LUNGS:Abnormal, MSK:Abnormal laboratory and microbiology Laboratory Tests 09/14/25 04:56 Test 09/14/25 04:56 Range/Units Serum Glucose 184 H 74-106 mg/dL Microbiology Date/Time Source Procedure Growth Status 09/11/25 12:30 Urine - [place] Urine Culture - Preliminary Resulted 09/09/25 13:30 Aspirate Gram Stain - Final Complete 09/09/25 13:30 Body Fluid Culture - Final Escherichia coli Pseudomonas aeruginosa Complete 09/08/25 10:59 Blood Blood Culture - Final NO GROWTH AFTER 5 DAYS OF INCUBATION. Complete 09/08/25 08:15 Nose MRSA Screen - Final Complete Problem List/Assessment/Plan Problem List/Assessment/Plan Acute kidney injury secondary to vancomycin toxicity COPD exacerbation Acute on chronic respiratory failure Morbid obesity Diabetes mellitus type 2 Abdominal wall abscess Hypokalemia Recommendations Kidney function continue to worsen Increased urine output Strict I&Os Discontinue vancomycin Insulin sliding scale Furosemide 40 mg IV b.i.d. KCL replacement IV antibiotics IV steroids We will continue to monitor daily for need for hemodialysis Plan discussed with: Patient My Orders My Orders Orders - RAYNA NICHOLS MD Procedure Category Date Status Time Furosemide Injection PHA 09/13/25 In Process (Lasix Injection) 18:00 Furosemide Injection PHA 09/13/25 In Process (Lasix Injection) 10:45 Communication Order ORDERS 09/13/25 Transmitted 10:45 Potassium Chl PHA 09/14/25 In Process 20meq/100ml 07:00 Dietary Evaluation Review Comments: Nutrition Recommendation 1) advance to [facility] 75gm + 2gm Na diet as medically feasible 2) Refer Coating Technician for diabetes education 3) Monitor PO intake, lab values, weight trend, and I/O Expected Outcomes/Goals: Intake to meet >75% estimated needs Lab values to improve Fu 2-3 days RAYNA NICHOLS MD Sep 14, 2025 10:36
--- NOTE | 2025-09-14 12:04 | DVHPN2 ---
Progress Note Date Seen: Sep 14, 2025 Medical Necessity Reason Pt with a Central, PICC or Fol: No Objective vital signs Vital Sign Date Time Temp Pulse Resp B/P (MAP) Pulse Ox O2 Delivery O2 Flow Rate FiO2 09/14/25 11:00 99.5 103 16 164/80 99.5 09/14/25 08:15 90 1.0 09/14/25 08:00 Nasal Cannula* 24 Total Intake and Output 09/13/25 09/13/25 09/14/25 15:00 23:00 07:00 Intake Total 930 ml 870 ml 450 ml Output Total 1782 ml 1500 ml Balance 930 ml -912 ml -1050 ml medications Current Medications Medications Dose Ordered Sig/Nivia Route Start Time Stop Time Status Last Admin Dose Admin Nitroglycerin 0.4 mg Q5MINP PRN SL 09/08/25 00:00 Morphine Sulfate 2 mg Q30M PRN IV 09/08/25 00:00 Hydromorphone HCl 0.5 mg Q6HPRN PRN IV 09/08/25 00:00 09/13/25 22:55 0.5 MG Albuterol 2.5 mg Q6HPRN PRN NEB 09/08/25 00:15 Ipratropium [place] 0.5 mg Q6HPRN PRN NEB 09/08/25 00:15 09/13/25 19:02 0.5 MG Clindamycin Phosphate 50 ml @ 50 mls/hr Q8HR IV 09/08/25 14:00 09/14/25 05:08 50 MLS/HR Pantoprazole Sodium 40 mg DAILY IV 09/09/25 10:00 09/13/25 10:25 40 MG Ondansetron HCl 4 mg Q6HP PRN IV 09/09/25 15:15 Acetaminophen 650 mg Q6HP PRN MA 09/11/25 10:15 09/11/25 10:55 650 MG Albuterol 2.5 mg Q6HR NEB 09/11/25 18:00 09/14/25 05:59 2.5 MG Piperacillin Sod/ Tazobactam Sod 100 ml @ 25 mls/hr Q8H IV 09/12/25 17:00 09/14/25 08:45 25 MLS/HR Diagnostic Test (Pha) 1 strip Q6HR 09/12/25 18:00 09/14/25 05:59 1 STRIP Insulin Human Regular Q6HR SC 09/12/25 18:00 09/14/25 05:58 8 UNITS Dextrose 50 ml UD PRN IV 09/12/25 13:30 Saccharomyces Boulardii 250 mg BID PO 09/13/25 10:00 09/13/25 22:00 250 MG Furosemide 40 mg BIDD IV 09/13/25 18:00 09/14/25 05:09 40 MG Enteral Nutritional Formula 240 ml BIDWM PO 09/13/25 18:00 09/14/25 08:44 240 ML laboratory and microbiology Laboratory Tests 09/14/25 04:56 Test 09/14/25 04:56 Range/Units Serum Glucose 184 H 74-106 mg/dL Problem List/Assessment/Plan Problem List/Assessment/Plan 09/14/25 CT REVIEWED, EXPANSION OF ABDOMINAL WALL ABSCESS WITH POSSIBLY INTRA ABDOMINAL COMPONENT, INCISION AND DRAINAGE POSSIBLE LAPAROSTOMY EXPLAINED IN DETAIL WERE RISKS AND COMPLICATIONS Plan discussed with: Patient, Other Dietary Evaluation Review Comments: Nutrition Recommendation 1) advance to [facility] 75gm + 2gm Na diet as medically feasible 2) Refer Insurance Claims Adjuster for diabetes education 3) Monitor PO intake, lab values, weight trend, and I/O Expected Outcomes/Goals: Intake to meet >75% estimated needs Lab values to improve Fu 2-3 days MINDY RAIN MD Sep 14, 2025 12:04
[2025-09-14] MEDS: SODIUM CHLORIDE 0.9% 1,000 ML IV SCH (16:26)
[2025-09-14] MEDS: MICAFUNGIN SODIUM 100 MG in SODIUM CHL 0.9% 100 ML IV ONE (17:09)
[2025-09-14] MEDS: LINEZOLID 600MG/300ML 300 ML IV SCH (22:18)
[2025-09-15] VITALS (62 sets, daily range): BP systolic 114–164; BP diastolic 26–62; PULSE 89–105; RESP 14–32; TEMP 97.8–98.6; O2SAT 93–100
[2025-09-15 05:29] LABS: Hematocrit 26.3 % (41.0-53.0); Hemoglobin 7.9 g/dL (13.5-17.5); Mean Corpuscular Hemoglobin 19.0 pg (28.0-32.0); Mean Corpuscular Volume 63.3 fL (80.0-100.0); Nucleated Red Blood Cells % 0.0 %
[2025-09-15 05:33] LABS: Chloride 104 mmol/L (98-107); Sodium 139 mmol/L (136-145)
[2025-09-15 05:34] LABS: Anion Gap 13 (5-15); Carbon Dioxide 22 mmol/L (20-31); Potassium 3.4 mmol/L (3.5-5.1)
[2025-09-15 05:35] LABS: Calcium 7.3 mg/dL (8.7-10.4)
[2025-09-15 05:39] LABS: BUN/Creatinine Ratio 6.6 (10.0-20.0); Blood Urea Nitrogen 21 mg/dL (9-23)
[2025-09-15 05:40] LABS: Magnesium 1.8 mg/dL (1.6-2.6)
[2025-09-15 05:51] LABS: Glucose 204 mg/dL (74-106)
[2025-09-15] MEDS: SUCCINYLCHOLINE CHLORIDE 20 MG/ML 10ML VIAL IV ONE (06:51)
[2025-09-15] MEDS: POVIDONE IODINE 10 % TOPICAL OINT 30GM TOP ONE ×2 (06:56→08:10)
[2025-09-15] MEDS: BUPIVACAINE HCL 0.25% P/F 10 ML VIAL ONE (06:56)
[2025-09-15] MEDS: Lidocaine/Epinephrine 1%-1:100,000 30ML VL ONE (06:57)
[2025-09-15] MEDS: ceFAZolin 2 GM/D5W50ml 50 ML IV ONE (07:38)
[2025-09-15] MEDS: ceFAZolin 1GM VL ONE (08:06)
[2025-09-15] MEDS ORDERED: ACETAMINOPHEN IV 1000 MG/100ML (10MG/ML) IV PRN (09:00)
[2025-09-15] MEDS ORDERED: HYDROmorphone HCL 2 MG/ML VL/or syr IV PRN (09:00)
[2025-09-15] MEDS ORDERED: ONDANSETRON HCL 4 MG/2 ML VIAL IV PRN (09:00)
[2025-09-15] MEDS: POTASSIUM CHL 20MEQ/100ML 100 ML IV SCH (09:44)
--- NOTE | 2025-09-15 09:44 | DVHPNRES ---
Progress Note Date Seen: Sep 15, 2025 Resident Creating Document: DAILY VALDES RESIDENT Medical Necessity Reason Pt with a Central, PICC or Fol: No Subjective Review of Systems Patient is 75-year-old male who came to the evaluation of chief complaint of shortness of breath, requiring inhaler and nebulization at home, associated with right lower quadrant abdominal pain and associated chills. No any other new complaints. Past medical history: Hypertension, diabetes mellitus type 2, Chronic obstructive pulmonary disease, pulmonary embolism, AAA questionable Past surgical history none Allergy lisinopril Family history none 09/10/2025: Patient seen examined in [place]. Status post pigtail insertion over right lower quadrant. Draining well. Appropriate abdominal discomfort, generalized weak. No any other new complaint. On oxygen via nasal cannula. 09/12/2025: patient seen in [place]. On 2 oxygen via NC. pig tail draining well. no night events, Has fe blisters over abdominal skill folds. 09/13/2025:Patient seen and examined at bedside. On 2 L o2. patient had green color stool. pain at the site of abscess. 09/14/2025:Patient seen and examined at bedside. On 2 L o2. patient had green color stool. pain at the site of abscess.Repeat ct abdomen showed 18 cm collection of fluid. IR and surgery has been informed. patient has loose few stools. no other complains. 09/15/2025: patient seen after I&D of abdominal wall abscess. On 2L O2. NPO. no other complains Objective vital signs Vital Sign Date Time Temp Pulse Resp B/P (MAP) Pulse Ox O2 Delivery O2 Flow Rate FiO2 09/15/25 08:35 105 14 94 Mask 12.0 09/15/25 08:35 94 09/15/25 08:35 98.2 175/67 (103) 98.2 Total Intake and Output 09/14/25 09/14/25 09/15/25 15:00 23:00 07:00 Intake Total 1430 ml 1030 ml 925 ml Output Total 1450 ml 750 ml Balance 1430 ml -420 ml 175 ml medications Current Medications Medications Dose Ordered Sig/Nivia Route Start Time Stop Time Status Last Admin Dose Admin Nitroglycerin 0.4 mg Q5MINP PRN SL 09/08/25 00:00 Morphine Sulfate 2 mg Q30M PRN IV 09/08/25 00:00 Hydromorphone HCl 0.5 mg Q6HPRN PRN IV 09/08/25 00:00 09/15/25 01:16 0.5 MG Albuterol 2.5 mg Q6HPRN PRN NEB 09/08/25 00:15 Ipratropium [place] 0.5 mg Q6HPRN PRN NEB 09/08/25 00:15 09/15/25 05:54 0.5 MG Pantoprazole Sodium 40 mg DAILY IV 09/09/25 10:00 09/14/25 10:00 40 MG Ondansetron HCl 4 mg Q6HP PRN IV 09/09/25 15:15 Acetaminophen 650 mg Q6HP PRN [place] 09/11/25 10:15 09/11/25 10:55 650 MG Albuterol 2.5 mg Q6HR NEB 09/11/25 18:00 09/15/25 05:54 2.5 MG Piperacillin Sod/ Tazobactam Sod 100 ml @ 25 mls/hr Q8H IV 09/12/25 17:00 09/15/25 01:11 25 MLS/HR Diagnostic Test (Pha) 1 strip Q6HR 09/12/25 18:00 09/15/25 05:21 1 STRIP Insulin Human Regular Q6HR SC 09/12/25 18:00 09/15/25 05:29 8 UNITS Dextrose 50 ml UD PRN IV 09/12/25 13:30 Sodium Chloride 1,000 ml @ 75 mls/hr [id number] IV 09/14/25 15:45 09/15/25 05:20 75 MLS/HR Micafungin Sodium 100 mg/Sodium Chloride 100 ml @ 100 mls/hr DAILY@0800 IV 09/15/25 08:00 Linezolid 300 ml @ 150 mls/hr Q12HR IV 09/14/25 22:00 09/14/25 22:18 150 MLS/HR Potassium Chloride 100 ml @ 50 mls/hr Q2H IV 09/15/25 08:00 09/15/25 11:59 Hydromorphone HCl 0.5 mg Q10M PRN IV 09/15/25 09:00 09/15/25 09:41 Examination General Appearance: Not in acute distress Head Exam: Normal inspection Neck Exam: Normal inspection. Non-tender. Normal alignment Pulmonary/Respiratory: Chest non-tender. Clear bilateral breath sounds Cardiovascular/Chest: Regular rate and rhythm. No murmurs. No JVD. Peripheral Pulses: 2+ Radial (R). 2+ Radial (L). 2+ Pedal (R). 2+ Pedal (L) Abdominal Exam: Normal bowel sounds. Soft. Nontender. No hepatospenomegaly. No masses, pigtail over right lover quadrant, erythema and tenderness over right lower quadrant. blisters over skin folds Ankle Exam: Negative ankle edema Lower extremities: Negative lower extremity edema Neuro/Mental Status: A&O x4. Coherent Thoughts/Psych: Normal thought pattern. Appropriate mood and affect. Good judgement and insight laboratory and microbiology Laboratory Tests 09/15/25 05:15 Test 09/15/25 05:15 Range/Units Serum Glucose 204 H 74-106 mg/dL Microbiology Date/Time Source Procedure Growth Status 09/11/25 12:30 Urine - [place] Urine Culture - Final Complete 09/09/25 13:30 Aspirate Gram Stain - Final Complete 09/09/25 13:30 Body Fluid Culture - Final Escherichia coli Pseudomonas aeruginosa Complete 09/08/25 10:59 Blood Blood Culture - Final NO GROWTH AFTER 5 DAYS OF INCUBATION. Complete 09/08/25 08:15 Nose MRSA Screen - Final Complete Problem List/Assessment/Plan Problem List/Assessment/Plan Infection sepsis with ?necrotizing fascitis Abdominal wall abscess versus necrotizing fasciitis Lactic acidosis -IV antibiotic: Zosyn, linezolid , micafungin -blood culture: Negative -body fluid culture: Ecoli and psedomonas -status post pigtail insertion -MRSA negative -CT abdomen: 7.7 x 6.4 x 11.8 cm fluid collection at the right lower abdominal subcutaneous fat with involvement of the right lateral abdominal wall and cecum -CT abdomen(09/13/25): 1. Large, predominantly gas filled collection in the right lower quadrant abdominal wall measuring up to 18.5 cm. This collection appears to communicate through the abdominal wall to the cecum, with an indistinct additional component of the collection measuring up to 9 cm within the peritoneum -Surgery(09/15/2025):Incision and drainage of abdominal wall abscess done by Dr Nickerson. Plan for repeat CT in near future -NPO Respiratory acute resp failure: cont oxygen Chronic obstructive pulmonary disease Currently at 2L o2 via NC -continue oxygen via nasal cannula, currently 2 L oxygen. -albuterol 2.5 mg nebulization q.6 PRN -DC: IV Lasix 40 mg twice daily Cardiology Acue HFPEF htn h/o pe Ruled out lower ext DVT -DC:IV Lasix 40 mg twice daily -echocardiogram pending results: lvef 55 % -continue to monitor electrolytes: Potassium > 4, magnesium > 2. Nephrology DAVY due to VMN -1.34, 2.41,2.79,3.23,3.20 -Urine electrolytes: Fena: 0.35 likely prerenal -BMP in am -Avoid nephrotoxic drugs -Nephrology consultation -Stopped vancomycin Hypokalemia Hypomagnesemia -Replenish Endocrine Uncontrollable diabetes mellitus type 2 with HGB A1c 8% on 09/09/2025 Morbid obesity BMI 48.4 kg/m2 -Severe insulin sliding scale -diabetic and cardiac diet Hematology Microcytic Hypochromic Anemia Hypokalemia -hemoglobin 7.3, 6.9 -repeat H and H -iron panel -1 unit of PRBCS PUD prophylaxis:protonix DVT prophylaxis:SCD Critical care time spent 53 minutes. Explained all the clinical information to at bedside after procedure. Plan discussed with Dr Resendiz Plan discussed with: Patient, Spouse, Other (RN) My Orders My Orders Orders - DAILY VALDES Procedure Category Date Status Time Sequential BRIDGET 09/14/25 In Process Compression Device 09:48 Clostridium Difficile LEILA 09/14/25 Logged Toxin 14:49 Micafungin Sodium PHA 09/15/25 In Process (Mycamine) 08:00 Linezolid 600mg/300ml PHA 09/14/25 In Process (Zyvox) 22:00 Dietary Evaluation Review Comments: Nutrition Recommendation 1) [facility] + 2gm Na diet as medically feasible 2) Refer Audograph Operator for diabetes education 3) Monitor PO intake, lab values, weight trend, and I/O Expected Outcomes/Goals: Intake to meet >75% estimated needs Lab values to improve Fu 2-3 days Date of Service: Sep 15, 2025 Billing Provider: KEVIN NICKERSON MD Common Visit Codes: [id number] CARE 30-74 MIN DAILY VALDES RESIDENT Sep 15, 2025 09:44 KEVIN NICKERSON MD Sep 16, 2025 12:52
[2025-09-15] MEDS: MICAFUNGIN SODIUM 100 MG in SODIUM CHL 0.9% 100 ML IV SCH (09:48)
--- NOTE | 2025-09-15 10:25 | DVHPN2 ---
Progress Note Date Seen: Sep 15, 2025 Medical Necessity Reason Pt with a Central, PICC or Fol: No Subjective Review of Systems: RESPIRATORY:Abnormal Other Systems: Patient seen and examined by myself today in follow-up, O2 nasal cannula 3 L Objective vital signs Vital Sign Date Time Temp Pulse Resp B/P (MAP) Pulse Ox O2 Delivery O2 Flow Rate FiO2 09/15/25 10:01 99 22 143/35 (71) 94 09/15/25 09:34 98.1 98.1 09/15/25 09:33 Nasal Cannula* 3 32 Total Intake and Output 09/14/25 09/14/25 09/15/25 15:00 23:00 07:00 Intake Total 1430 ml 1030 ml 925 ml Output Total 1450 ml 750 ml Balance 1430 ml -420 ml 175 ml medications Current Medications Medications Dose Ordered Sig/Nivia Route Start Time Stop Time Status Last Admin Dose Admin Nitroglycerin 0.4 mg Q5MINP PRN SL 09/08/25 00:00 Morphine Sulfate 2 mg Q30M PRN IV 09/08/25 00:00 Hydromorphone HCl 0.5 mg Q6HPRN PRN IV 09/08/25 00:00 09/15/25 01:16 0.5 MG Albuterol 2.5 mg Q6HPRN PRN NEB 09/08/25 00:15 Ipratropium [place] 0.5 mg Q6HPRN PRN NEB 09/08/25 00:15 09/15/25 05:54 0.5 MG Pantoprazole Sodium 40 mg DAILY IV 09/09/25 10:00 09/15/25 10:17 40 MG Ondansetron HCl 4 mg Q6HP PRN IV 09/09/25 15:15 Acetaminophen 650 mg Q6HP PRN ID 09/11/25 10:15 09/11/25 10:55 650 MG Albuterol 2.5 mg Q6HR NEB 09/11/25 18:00 09/15/25 05:54 2.5 MG Piperacillin Sod/ Tazobactam Sod 100 ml @ 25 mls/hr Q8H IV 09/12/25 17:00 09/15/25 01:11 25 MLS/HR Diagnostic Test (Pha) 1 strip Q6HR 09/12/25 18:00 09/15/25 05:21 1 STRIP Insulin Human Regular Q6HR SC 09/12/25 18:00 09/15/25 05:29 8 UNITS Dextrose 50 ml UD PRN IV 09/12/25 13:30 Sodium Chloride 1,000 ml @ 75 mls/hr [id number] IV 09/14/25 15:45 09/15/25 05:20 75 MLS/HR Micafungin Sodium 100 mg/Sodium Chloride 100 ml @ 100 mls/hr DAILY@0800 IV 09/15/25 08:00 09/15/25 09:48 100 MLS/HR Linezolid 300 ml @ 150 mls/hr Q12HR IV 09/14/25 22:00 09/14/25 22:18 150 MLS/HR Potassium Chloride 100 ml @ 50 mls/hr Q2H IV 09/15/25 08:00 09/15/25 11:59 09/15/25 09:44 50 MLS/HR Examination: LUNGS:Normal, CVS:Normal, MSK:Abnormal laboratory and microbiology Laboratory Tests 09/15/25 05:15 Test 09/15/25 05:15 Range/Units Serum Glucose 204 H 74-106 mg/dL Microbiology Date/Time Source Procedure Growth Status 09/11/25 12:30 Urine - [place] Urine Culture - Final Complete 09/09/25 13:30 Aspirate Gram Stain - Final Complete 09/09/25 13:30 Body Fluid Culture - Final Escherichia coli Pseudomonas aeruginosa Complete 09/08/25 10:59 Blood Blood Culture - Final NO GROWTH AFTER 5 DAYS OF INCUBATION. Complete 09/08/25 08:15 Nose MRSA Screen - Final Complete Problem List/Assessment/Plan Problem List/Assessment/Plan Acute kidney injury secondary to vancomycin toxicity COPD exacerbation Acute on chronic respiratory failure Morbid obesity Diabetes mellitus type 2 Abdominal wall abscess, status post I&D 09/15 Hypokalemia Recommendations Stabilize serum creatinine Increased urine output Strict I&Os Discontinue vancomycin Insulin sliding scale Furosemide 40 mg IV b.i.d. KCL replacement IV antibiotics IV steroids We will continue to follow Plan discussed with: Patient My Orders My Orders Orders - RAYNA NICHOLS MD Procedure Category Date Status Time Potassium Chl PHA 09/15/25 In Process 20meq/100ml 08:00 Dietary Evaluation Review Comments: Nutrition Recommendation 1) advance to [facility] 75gm + 2gm Na diet as medically feasible 2) Refer Surveillance Dual Rate Officer for diabetes education 3) Monitor PO intake, lab values, weight trend, and I/O Expected Outcomes/Goals: Intake to meet >75% estimated needs Lab values to improve Fu 2-3 days RAYNA NICHOLS MD Sep 15, 2025 10:25
--- NOTE | 2025-09-15 13:24 | DVHOP ---
DATE OF SURGERY: 09/15/2025 PREOPERATIVE DIAGNOSIS: Abdominal wall abscess. POSTOPERATIVE DIAGNOSIS: Abdominal wall abscess. SURGEON: Sina Nickerson MD PARKING INSPECTOR: Daniele Rader NP ANESTHESIA: General endotracheal, Dr. Niall Alberto. PROCEDURE: Incision and drainage of abdominal wall abscess. DESCRIPTION OF PROCEDURE: The patient is a morbidly obese patient with an enlarging abscess in the abdominal wall with the possibility of intraabdominal extension according to the radiologist's interpretation of the CT scan. The patient was taken to the operating room and general endotracheal anesthesia was administered. I used an 18-gauge spinal needle and localized the infection by aspiration. Subsequently made the incision over the palpable firmness of the abdominal wall and evacuated approximately 400 mL of purulent material, which was submitted for cultures and sensitivities. Digital exploration of the abscess cavity revealed multiple loculations containing pus. Loculations were broken up bluntly and sharply and pus was evacuated. Cultures and sensitivities were submitted. On palpation and visual inspection, the muscle wall of the abdominal cavity appears to be intact. There was no evidence of pus expressible from the inside of the abdomen. For this reason, I elected not to proceed with an exploratory laparotomy, although postoperatively, I explained to the family that there is always a possibility that there is an abscess extension into the peritoneal cavity and the visible communication may not be established during an acute surgery. We will use conservative measures and repeat the CT scan in the near future to investigate for presence of an intraabdominal abscess after control of the extraperitoneal process. The abscess cavity was then profusely irrigated with pulse lavage irrigation containing Ancef. Following assurance of complete hemostasis, the cavity of the abscess and its loculations were packed with iodine saturated Kerlix. A loose dressing was then applied. The patient remained stable throughout the procedure. I left the operating room following an accurate needle and sponge counts. His mother and daughter were thoroughly informed in the waiting area. MD ULISES Arshad/IVAN/ANALIA TID: [id number] RECEIPT: [id number]
[2025-09-16] VITALS (36 sets, daily range): BP systolic 106–157; BP diastolic 45–64; PULSE 6–98; RESP 14–24; TEMP 97.2–98.4; O2SAT 93–100
[2025-09-16 05:00] LABS: Alanine Aminotransferase 12 U/L (7-40); Anion Gap 11 (5-15); BUN/Creatinine Ratio 7.2 (10.0-20.0); Blood Urea Nitrogen 21 mg/dL (9-23); Carbon Dioxide 23 mmol/L (20-31); Potassium 3.6 mmol/L (3.5-5.1); Sodium 142 mmol/L (136-145)
[2025-09-16 05:17] LABS: Albumin 2.1 g/dL (3.2-4.8); Alkaline Phosphatase 167 U/L (46-116); Bilirubin, Total 0.3 mg/dL (0.2-1.0); Calcium 7.2 mg/dL (8.7-10.4); Chloride 108 mmol/L (98-107); Glucose 195 mg/dL (74-106); Total Protein 5.0 g/dL (5.7-8.2)
[2025-09-16 05:22] LABS: Hematocrit 26.1 % (41.0-53.0); Hemoglobin 7.4 g/dL (13.5-17.5); Mean Corpuscular Hemoglobin 19.0 pg (28.0-32.0); Mean Corpuscular Volume 66.6 fL (80.0-100.0); Nucleated Red Blood Cells % 0.1 %
[2025-09-16] MEDS: HYDROcodone-ACET 10/325MG TAB PO PRN (10:39)
[2025-09-16] MEDS: HYDROmorphone HCL 2 MG/ML VL/or syr IV PRN (16:57)
[2025-09-16] MEDS ORDERED: ROCURONIUM 10MG/ML 10ML VIAL IV ONE (20:15)
[2025-09-16] MEDS ORDERED: PROPOFOL 10 MG/ML 20 ML IV ONE (20:15)
--- NOTE | 2025-09-17 11:04 | DVHPN2 ---
Subjective Date Seen: Sep 16, 2025 Post op day Post op day: 1 Patient reports: No new complaints Objective Vitals Vital Sign Date Time Temp Pulse Resp B/P (MAP) Pulse Ox O2 Delivery O2 Flow Rate FiO2 09/16/25 09:00 98 21 139/55 (83) 98 09/16/25 08:00 97.2 97.2 09/16/25 07:49 Nasal Cannula* 4 36 Total Intake and Output 09/15/25 09/15/25 09/16/25 15:00 23:00 07:00 Intake Total 1350.0 ml 675 ml 1000 ml Output Total 450 ml 600 ml Balance 1350.0 ml 225 ml 400 ml Medications Current Medications Medications Dose Ordered Sig/Nivia Route Start Time Stop Time Status Last Admin Dose Admin Nitroglycerin 0.4 mg Q5MINP PRN SL 09/08/25 00:00 Morphine Sulfate 2 mg Q30M PRN IV 09/08/25 00:00 Albuterol 2.5 mg Q6HPRN PRN NEB 09/08/25 00:15 Ipratropium [place] 0.5 mg Q6HPRN PRN NEB 09/08/25 00:15 09/16/25 06:55 0.5 MG Pantoprazole Sodium 40 mg DAILY IV 09/09/25 10:00 09/16/25 07:53 40 MG Ondansetron HCl 4 mg Q6HP PRN IV 09/09/25 15:15 Acetaminophen 650 mg Q6HP PRN [place] 09/11/25 10:15 09/11/25 10:55 650 MG Albuterol 2.5 mg Q6HR NEB 09/11/25 18:00 09/16/25 06:55 2.5 MG Piperacillin Sod/ Tazobactam Sod 100 ml @ 25 mls/hr Q8H IV 09/12/25 17:00 09/16/25 07:53 25 MLS/HR Diagnostic Test (Pha) 1 strip Q6HR 09/12/25 18:00 09/16/25 06:02 1 STRIP Insulin Human Regular Q6HR SC 09/12/25 18:00 09/16/25 06:03 8 UNITS Dextrose 50 ml UD PRN IV 09/12/25 13:30 Sodium Chloride 1,000 ml @ 75 mls/hr [id number] IV 09/14/25 15:45 09/15/25 23:54 75 MLS/HR Micafungin Sodium 100 mg/Sodium Chloride 100 ml @ 100 mls/hr DAILY@0800 IV 09/15/25 08:00 09/15/25 09:48 100 MLS/HR Linezolid 300 ml @ 150 mls/hr Q12HR IV 09/14/25 22:00 09/16/25 07:53 150 MLS/HR Hydromorphone HCl 1 mg Q4HPRN PRN IV 09/16/25 09:15 Acetaminophen/ Hydrocodone Bitart 1 tab Q8HP PRN PO 09/16/25 09:15 General: Normal, Mild distress, Obese Head/Eyes: Normal ENT: Normal Neck: Normal Lungs: Normal Skin: Warm, Other (lower abdomen erythema) Labs and Microbiology Laboratory Tests 09/16/25 03:53 Test 09/16/25 03:53 Range/Units Serum Glucose 195 H 74-106 mg/dL Ass/Plan Problem List Infection sepsis with ?necrotizing fascitis Abdominal wall abscess versus necrotizing fasciitis Lactic acidosis -IV antibiotic: Zosyn, linezolid , micafungin -blood culture: Negative -body fluid culture: Ecoli and psedomonas -status post pigtail insertion -MRSA negative -CT abdomen: 7.7 x 6.4 x 11.8 cm fluid collection at the right lower abdominal subcutaneous fat with involvement of the right lateral abdominal wall and cecum -CT abdomen(09/13/25): 1. Large, predominantly gas filled collection in the right lower quadrant abdominal wall measuring up to 18.5 cm. This collection appears to communicate through the abdominal wall to the cecum, with an indistinct additional component of the collection measuring up to 9 cm within the peritoneum -Surgery(09/15/2025):Incision and drainage of abdominal wall abscess done by Dr Nickerson. Plan for repeat CT in near future -NPO Respiratory acute resp failure: cont oxygen Chronic obstructive pulmonary disease Currently at 2L o2 via NC -continue oxygen via nasal cannula, currently 2 L oxygen. -albuterol 2.5 mg nebulization q.6 PRN -DC: IV Lasix 40 mg twice daily Cardiology Acue HFPEF htn h/o pe Ruled out lower ext DVT -DC:IV Lasix 40 mg twice daily -echocardiogram pending results: lvef 55 % -continue to monitor electrolytes: Potassium > 4, magnesium > 2. Nephrology DVAY due to VMN -1.34, 2.41,2.79,3.23,3.20 -Urine electrolytes: Fena: 0.35 likely prerenal -BMP in am -Avoid nephrotoxic drugs -Nephrology consultation -Stopped vancomycin Hypokalemia Hypomagnesemia -Replenish Endocrine Uncontrollable diabetes mellitus type 2 with HGB A1c 8% on 09/09/2025 Morbid obesity BMI 48.4 kg/m2 -Severe insulin sliding scale -diabetic and cardiac diet Hematology Microcytic Hypochromic Anemia Hypokalemia -hemoglobin 7.3, 6.9 -repeat H and H -iron panel -1 unit of PRBCS PUD prophylaxis:protonix DVT prophylaxis:SCD Critical care time spent 53 minutes. Explained all the clinical information to at bedside after procedure. Plan discussed with Dr Resendiz Assessment/Plan no purulent drainage from wound surrounding erythema induration around wound which extends to the right and left side of abdomen plan: wound packing to be replaced reevaluate to diego naik Prognosis: Good Plan discussed with patient, nurse, Dr. Nickerson Visit Coding Surgery Date of Service if different f: Sep 16, 2025 Billing Provider: MINDY NICKERSON MD Surgery Visit Codes: [id number] INP/OBS CARE(HIGH) MARY HOPE NP Sep 16, 2025 09:23
--- NOTE | 2025-09-17 11:05 | DVHDSRES ---
Discharge Summary Date of Admission Resident Creating Document: DAILY [facility] RESIDENT Sep 07, 2025 at 23:48 Date of Discharge: Sep 16, 2025 Admitting Diagnosis abdominal pain Labs/Diagnostic Data: Laboratory Results Test 09/16/25 03:53 09/15/25 05:15 09/13/25 05:00 09/12/25 09:45 White Blood Count 15.9 10^3/uL (4.4-10.8) Red Blood Count 3.91 10^6/uL (4.5-5.90) Hemoglobin 7.4 g/dL (13.5-17.5) Hematocrit 26.1 % (41.0-53.0) Mean Corpuscular Volume 66.6 fL (80.0-100.0) Mean Corpuscular Hemoglobin 19.0 pg (28.0-32.0) Mean Corpuscular Hemoglobin Concent 28.5 g/dL (32.0-36.0) Red Cell Distribution Width 21.5 % (11.8-14.3) Platelet Count 439 10^3/uL (140-450) Mean Platelet Volume 7.1 fL (6.9-10.8) Neutrophils (%) (Auto) 81.5 % (37.0-80.0) Lymphocytes (%) (Auto) 9.9 % (10.0-50.0) Monocytes (%) (Auto) 5.6 % (0.0-12.0) Eosinophils (%) (Auto) 2.8 % (0.0-7.0) Basophils (%) (Auto) 0.2 % (0.0-2.0) Neutrophils # (Auto) 12.9 10 ^3/uL (1.6-8.6) Lymphocytes # (Auto) 1.6 10 ^3/uL (0.4-5.4) Monocytes # (Auto) 0.9 10 ^3/uL (0-1.3) Eosinophils # (Auto) 0.4 10 ^3/uL (0-0.8) Basophils # (Auto) 0 10 ^3/uL (0-0.2) Nucleated Red Blood Cells 0.1 % Sodium Level 142 mmol/L (136-145) Potassium Level 3.6 mmol/L (3.5-5.1) Chloride Level 108 mmol/L (98-107) Carbon Dioxide Level 23 mmol/L (20-31) Anion Gap 11 (5-15) Blood Urea Nitrogen 21 mg/dL (9-23) Creatinine 2.93 mg/dL (0.700-1.30) Glomerular Filtration Rate Calc 22 mL/min (>90) BUN/Creatinine Ratio 7.2 (10.0-20.0) Serum Glucose 195 mg/dL (74-106) Calcium Level 7.2 mg/dL (8.7-10.4) Total Bilirubin 0.3 mg/dL (0.2-1.0) Aspartate Amino Transferase (AST) 26 U/L (13-40) Alanine Aminotransferase (ALT) 12 U/L (7-40) Alkaline Phosphatase 167 U/L (46-116) Total Protein 5.0 g/dL (5.7-8.2) Albumin 2.1 g/dL (3.2-4.8) Magnesium Level 1.8 mg/dL (1.6-2.6) Random Vancomycin Level 17.1 ug/mL (5-10) Urine Creatinine 99.33 mg/dL (30.0-125.0) Urine Protein/Creatinine Ratio 1.01 Urine Sodium 15 mmol/L (40-220) Urine Total Protein 100.3 mg/dL (1-14) Test 09/12/25 06:06 09/12/25 05:17 09/11/25 11:28 09/10/25 10:50 POC Glucose 245 mg/dl (70-106) Phosphorus Level 3.7 mg/dL (2.4-5.1) Vancomycin Level Trough 33.3 ug/mL (5-10) Blood Gas Specimen Type Arterial Blood Gas Sample Site Right brachial Blood Gas Patient Temperature 37.0 Arterial Blood Date Drawn [id number] Arterial Blood pH 7.484 (7.350-7.450) Arterial Blood Partial Pressure CO2 32.5 mmHg (35.0-48.0) Arterial Blood Partial Pressure O2 64.2 mmHg (83.0-108.0) Arterial Blood HCO3 23.9 mmol/L (21.0-28.0) Arterial Blood Oxygen Saturation 91.1 % (94.0-98.0) Arterial Blood Base Excess 0.7 mmol/L (-2.0-3.0) Arterial Blood Oxyhemoglobin 89.6 % (94.0-98.0) Arterial Blood Carboxyhemoglobin 1.4 % (0.5-1.5) Arterial Blood Methemoglobin 0.2 % (0.0-1.5) Errol Test N/a Blood Gas Total Hemoglobin 8.50 g/dL (13.5-17.5) Blood Gas Liter Flow 1.00 Blood Gas Modality Nasal cannula FiO2 % 24.0 Test 09/09/25 13:30 09/09/25 04:09 09/08/25 08:39 09/07/25 22:08 Prothrombin Time 12.2 sec (9.3-11.8) Prothrombin Time INR 1.17 (0.9-1.15) Activated Partial Thromboplast Time 26.6 SEC (24.5-34.5) Hemoglobin A1c 8.0 % A1C (<5.7) Differential Total Cells Counted 100.0 (100) Neutrophils % (Manual) 87 (37.0-80.0) Band Neutrophils % (Manual) 3 Lymphocytes % (Manual) 5 (10.0-50.0) Monocytes % (Manual) 5 (0-12) Eosinophils % (Manual) 0 (0-7) Basophils % (Manual) 0 (0.0-2.0) Metamyelocytes % (manual) 0 Myelocytes % (Manual) 0 Promyelocytes % (Manual) 0 Blast Cells % (Manual) 0 Reactive Lymphocytes 0 Platelet Estimate Increased Large Platelets Few Hypochromasia (manual) Marked Microcytosis Marked Stomatocytes Few Schistocytes Few Troponin I High Sensitivity 4 ng/L (</=54) Test 09/07/25 21:09 09/07/25 20:52 09/07/25 18:57 Lactic Acid Level 4.1 mmol/L (0.4-2.0) Urine Color Yellow (Yellow) Urine Clarity Clear (Clear) Urine pH 6.0 (5.0-9.0) Urine Specific [place] 1.015 (1.001-1.035) Urine Protein Trace (Negative) Urine Ketones Negative (Negative) Urine Blood Negative /uL (Negative) Urine Nitrite Negative (Negative) Urine Bilirubin Negative (Negative) Urine Urobilinogen 2 mg/dL (Negative) Urine Leukocyte Esterase Negative /uL (Negative) Urine RBC 1 /hpf (0 - 3) Urine Microscopic WBC 4 /HPF (0-3) Urine Squamous Epithelial Cells Few /hpf (<5) Urine Bacteria None seen /hpf (None Seen) Urine Glucose Normal mg/dL (Normal) Anisocytosis (manual) Slight B-Type Natriuretic Peptide 27.80 pg/mL (0-100) Other Laboratory Tests 09/16/25 03:53 Brief Hx & Hospital Course: Patient is 75-year-old male with past medical history of Hypertension, diabetes mellitus type 2, Chronic obstructive pulmonary disease, pulmonary embolism came to the hospital with a chief complaint of right lower quadrant abdominal pain associated with the chills and mild shortness of breath. During initial hospital evaluation, patient found to have 7.7 x 6.4 x 11.8 cm fluid collection at the right lower abdominal subcutaneous fat with involvement of the right lateral abdominal wall and cecum, started on IV antibiotic Zosyn and vancomycin, underwent ultrasound-guided pigtail insertion, over the course of hospitalization erythema over abdominal wall skin significantly improved, fever also improved however patient continued to have abdominal discomfort, requiring repeat CT scan of abdomen which showed Large, predominantly gas filled collection in the right lower quadrant abdominal wall measuring up to 18.5 cm. This collection appears to communicate through the abdominal wall to the cecum, with an indistinct additional component of the collection measuring up to 9 cm within the peritoneum. Surgeon underwent incision and drainage and continue with open wound for drainage to avoid recurrent abscess formation. Keeping continuous dressing as needed. Body fluid culture showed E coli and Pseudomonas receiving now antibiotic of Zosyn, linezolid and micafungin. Culture from abdominal wall abscess is pending growing Gram-negative bacteremia therefore patient is on broad-spectrum antibiotic. Given patient is hemodynamically stable, not on vasopressors, at baseline oxygen requirement, no fever, patient will be transferred to [facility] for continuity of care. critical care time spent was 51 mins Condition at Discharge: Guarded Final Diagnosis/Problems List sepsis due to abdominal wall abscess with necrotizing fascitis Abdominal wall abscess ? peritoneal abscess Lactic acidosis acute resp failure: cont oxygen Chronic obstructive pulmonary disease Currently at 2L o2 via NC Acue HFPEF htn h/o pe Ruled out lower ext DVT DAVY due to VMN Hypokalemia Hypomagnesemia Uncontrollable diabetes mellitus type 2 with HGB A1c 8% on 09/09/2025 Morbid obesity BMI 48.4 kg/m2 Microcytic Hypochromic Anemia Discharge Disposition: Acute Care Facility Discharge Instruct/Medications Diet: See Comment Diet comment: soft mechanical diet Activity: No Restrictions, As Tolerated Follow Up/Referral: -follow up with [facility] Medications: See medication reconsile transfer papers Scheduled Ascorbic Acid (Gnp Vitamin C W/Isabelle Hips), 1,000 MG PO DAILY Atorvastatin Calcium (Lipitor), 1 TAB PO DAILY, (Reported) Atorvastatin Calcium (Lipitor), 40 MG PO DAILY, (Reported) Cholecalciferol (Vitamin D3), 5,000 UNIT PO DAILY Dabigatran Etexilate Mesylate (Pradaxa), 150 MG PO BID, (Reported) Dexamethasone (Decadron), 1 TAB PO DAILY Doxycycline Hyclate (Doxycycline Hyclate), 1 TAB PO BID Hydrochlorothiazide (Hydrochlorothiazide), 75 MG PO DAILY, (Reported) Insulin Glargine (Lantus), 25 UNIT SC HS Losartan Potassium (Losartan Potassium), 50 MG PO DAILY, (Reported) Metformin HCl (Metformin Hydrochloride), 1,000 MG PO BID, (Reported) Montelukast Sodium (Singulair), 10 MG PO DAILY, (Reported) Omeprazole (Gnp Omeprazole), 20 MG PO BID, (Reported) Zinc Sulfate (Zinc Sulfate), 220 MG PO DAILY Scheduled PRN Albuterol Sulfate (Ventolin Mdi), 90 MCG IN Q6HP PRN Miscellaneous Medications Albuterol Sulfate (Albuterol Sulfate Hfa), 90 MCG IN, (Reported) Azelastine Hcl (Azelastine Hcl), 0.1 % NA, (Reported) Budesonide (Inhalation) (Budesonide), 1 MG IN, (Reported) Ciclesonide (Alvesco), 160 MCG IN, (Reported) Discharge Statement: "Patient was advised to return to the ER or call 911 if any headaches, dizziness, shortness of breath, chest pain, abdominal pain, bleeding, fevers, or worsening of medical condition. Patient was counseled about treatment plan, medications, possible side effects, patientverbalized understanding. All questions were answered to the best of my ability. This discharge took greater then 30 minutes in planning, reviewing documentation, counseling the patient, and discussing with other team members." ASSESSMENT ASSESSMENT Assessment sepsis with ?necrotizing fascitis Abdominal wall abscess versus necrotizing fasciitis Lactic acidosis acute resp failure: cont oxygen Chronic obstructive pulmonary disease Currently at 2L o2 via NC Acue HFPEF DAVY due to VMN Date of Service: Sep 16, 2025 Billing Provider: KEVIN NICKERSON MD Common Visit Codes: [id number] CARE 30-74 MIN DAILY VAL[facility] RESIDENT Sep 16, 2025 09:54 KEVIN NICKERSON MD Sep 18, 2025 11:31
--- NOTE | 2025-09-17 11:12 | DVHPN2 ---
Progress Note Date Seen: Sep 16, 2025 Medical Necessity Reason Pt with a Central, PICC or Fol: No Subjective Review of Systems: RESPIRATORY:Abnormal Other Systems: Patient seen and examined by myself today in follow-up Objective vital signs Vital Sign Date Time Temp Pulse Resp B/P (MAP) Pulse Ox O2 Delivery O2 Flow Rate FiO2 09/16/25 12:20 88 18 100 09/16/25 12:12 Nasal Cannula 2.0 09/16/25 12:12 28 09/16/25 12:00 97.7 113/52 (72) 97.7 Total Intake and Output 09/15/25 09/15/25 09/16/25 15:00 23:00 07:00 Intake Total 1350.0 ml 675 ml 1000 ml Output Total 450 ml 600 ml Balance 1350.0 ml 225 ml 400 ml medications Current Medications Medications Dose Ordered Sig/Nivia Route Start Time Stop Time Status Last Admin Dose Admin Nitroglycerin 0.4 mg Q5MINP PRN SL 09/08/25 00:00 Morphine Sulfate 2 mg Q30M PRN IV 09/08/25 00:00 Albuterol 2.5 mg Q6HPRN PRN NEB 09/08/25 00:15 Ipratropium [place] 0.5 mg Q6HPRN PRN NEB 09/08/25 00:15 09/16/25 12:12 0.5 MG Pantoprazole Sodium 40 mg DAILY IV 09/09/25 10:00 09/16/25 07:53 40 MG Ondansetron HCl 4 mg Q6HP PRN IV 09/09/25 15:15 Acetaminophen 650 mg Q6HP PRN FL 09/11/25 10:15 09/11/25 10:55 650 MG Albuterol 2.5 mg Q6HR NEB 09/11/25 18:00 09/16/25 12:12 2.5 MG Piperacillin Sod/ Tazobactam Sod 100 ml @ 25 mls/hr Q8H IV 09/12/25 17:00 09/16/25 07:53 25 MLS/HR Diagnostic Test (Pha) 1 strip Q6HR 09/12/25 18:00 09/16/25 11:44 1 STRIP Insulin Human Regular Q6HR SC 09/12/25 18:00 09/16/25 11:44 8 UNITS Dextrose 50 ml UD PRN IV 09/12/25 13:30 Sodium Chloride 1,000 ml @ 75 mls/hr [id number] IV 09/14/25 15:45 09/15/25 23:54 75 MLS/HR Micafungin Sodium 100 mg/Sodium Chloride 100 ml @ 100 mls/hr DAILY@0800 IV 09/15/25 08:00 09/16/25 09:23 100 MLS/HR Linezolid 300 ml @ 150 mls/hr Q12HR IV 09/14/25 22:00 09/16/25 07:53 150 MLS/HR Hydromorphone HCl 1 mg Q4HPRN PRN IV 09/16/25 09:15 Acetaminophen/ Hydrocodone Bitart 1 tab Q8HP PRN PO 09/16/25 09:15 09/16/25 10:39 1 TAB Examination: LUNGS:Normal, CVS:Normal, MSK:Abnormal laboratory and microbiology Laboratory Tests 09/16/25 03:53 Test 09/16/25 03:53 Range/Units Serum Glucose 195 H 74-106 mg/dL Microbiology Date/Time Source Procedure Growth Status 09/15/25 08:07 Abdomen Gram Stain Pending Resulted 09/15/25 08:07 Abdomen Anaerobic Culture - Preliminary Resulted 09/15/25 08:07 Abdomen Aerobic Culture - Preliminary Resulted 09/14/25 14:49 Stool Clostridium difficile Toxin Assay - Final Complete 09/11/25 12:30 Urine - [place] Urine Culture - Final Complete 09/09/25 13:30 Aspirate Gram Stain - Final Complete 09/09/25 13:30 Body Fluid Culture - Final Escherichia coli Pseudomonas aeruginosa Complete 09/08/25 10:59 Blood Blood Culture - Final NO GROWTH AFTER 5 DAYS OF INCUBATION. Complete Problem List/Assessment/Plan Problem List/Assessment/Plan Acute kidney injury secondary to vancomycin toxicity COPD exacerbation Acute on chronic respiratory failure Morbid obesity Diabetes mellitus type 2 Abdominal wall abscess, status post I&D 09/15 Hypokalemia Recommendations Kidney function slightly improved today Increased urine output Strict I&Os Discontinue vancomycin Insulin sliding scale Furosemide 40 mg IV b.i.d. KCL replacement IV antibiotics IV steroids We will continue to follow Plan discussed with: Patient Dietary Evaluation Review Comments: Nutrition Recommendation 1) advance to [facility] 75gm + 2gm Na diet as medically feasible 2) Refer [employer] for diabetes education 3) Monitor PO intake, lab values, weight trend, and I/O Expected Outcomes/Goals: Intake to meet >75% estimated needs Lab values to improve Fu 2-3 days RAYNA NICHOLS MD Sep 16, 2025 13:02
== END 2025-09-16 19:43 | disposition short-term general hospital (02) | DRG 853 ==
LOC: ER 17:12 → EDBD 17:12 → OVERFLOW 23:48 → MERGE 23:48 → OVERFLOW 23:54 → DOU 09-08 03:55 → ICU WEST 09-14 20:11 → DOU 09-16 04:25
PROVIDERS: ADMIT Internal Medicine; ATTEND Internal Medicine
PROC: 0W9F30Z Drainage of Abdominal Wall with Drainage Device, Percutaneous Approach (ICD-10-PCS; 2025-09-09)
PROC: 30233N1 Transfusion of Nonautologous Red Blood Cells into Peripheral Vein, Percutaneous Approach (ICD-10-PCS; 2025-09-14)
PROC: 0W9F0ZX Drainage of Abdominal Wall, Open Approach, Diagnostic (ICD-10-PCS; principal; 2025-09-15 07:38)
DX: A41.9 Sepsis, unspecified organism (principal); I50.31 Acute diastolic (congestive) heart failure; J96.21 Acute and chronic respiratory failure with hypoxia; M72.6 Necrotizing fasciitis; N17.0 Acute kidney failure with tubular necrosis; K65.1 Peritoneal abscess; E87.20 Acidosis, unspecified; L02.211 Cutaneous abscess of abdominal wall; R65.20 Severe sepsis without septic shock; J44.1 Chronic obstructive pulmonary disease with (acute) exacerbation; Z68.42 Body mass index [BMI] 45.0-49.9, adult; E11.9 Type 2 diabetes mellitus without complications; D50.9 Iron deficiency anemia, unspecified; I11.0 Hypertensive heart disease with heart failure; E66.01 Morbid (severe) obesity due to excess calories; E87.6 Hypokalemia; T36.8X5A Adverse effect of other systemic antibiotics, initial encounter; E83.42 Hypomagnesemia; Z83.3 Family history of diabetes mellitus; Z82.49 Family history of ischemic heart disease and other diseases of the circulatory system; Z80.3 Family history of malignant neoplasm of breast; Z79.84 Long term (current) use of oral hypoglycemic drugs; Z86.711 Personal history of pulmonary embolism; Z79.4 Long term (current) use of insulin; Z99.81 Dependence on supplemental oxygen; Y92.89 Other specified places as the place of occurrence of the external cause
CPT/HCPCS: 10060; 36415; 36600; 70450; 71045; 74176; 76705; 76942; 80048; 80053; 80202; 81001; 82570; 82805; 82962; 83036; 83605; 83735; 83880; 84100; 84156; 84300; 84484; 85007; 85025; 85027; 85610; 85730; 86850; 86900; 86901; 86920; 87040; 87070; 87071; 87075; 87076; 87077; 87081; 87086; 87186; 87205; 87493; 92610; 93005; 93306; 93970; 94640; 96365; 96368; 99291; 99292; C1729; G0378; J0330; J0690; J1815; J2003; J2248; J2250; J2470; J2543; J2704; J3480; J3490